=== PATIENT | female | born 1950 | race Caucasian/White ===

== ENCOUNTER → 2017-09-21 08:51 | Outpatient (CLI) | payer MEDICARE, OTHER, SELFPAY ==
[2017-09-21 13:36] LABS: Alanine Aminotransferase 15 U/L (12-78); Albumin Level 3.5 gm/dL (3.4-5.0); Albumin/Globulin Ratio 1.3 (1.1-1.8); Alkaline Phosphatase 111 U/L (46-116); Anion Gap 12.2 mEq/L (5-15); Aspartate Amino Transferase 14 U/L (15-37); Bilirubin,Total 0.5 mg/dL (0.2-1.0); Blood Urea Nitrogen 18 mg/dL (7-18); Carbon Dioxide 27 mmol/L (21.0-32.0); Chloride 107 mmol/L (98-107); Chol/HDL Ratio 2.6 (1-3.5); Cholesterol 143 mg/dL (140-200); Creatinine,Serum 1.07 mg/dL (0.55-1.02); Estimated Glomerular Filt Rate 51 ml/min (>60); Free T4 (Free Thyroxine) 0.89 ng/dl (0.76-1.46); GFR (African American) 62 ML/MIN (>60); Globulin 2.8 gm/dl (1.3-3.2); Glucose 101 mg/dL (74-106); HDL Cholesterol 56 mg/dL (29-89); LDL Cholesterol 63 mg/dL (0-130); Potassium 4.2 mmoL/L (3.5-5.1); Sodium 142 mmol/L (136-145); Thyroid Stimulating Hormone 1.89 uIU/ml (0.358-3.740); Total Protein,Serum 6.3 gm/dL (6.4-8.2); Triglycerides 119 mg/dL (30-200); VLDL Cholesterol 24 mg/dL (0-40)
[2017-09-21 13:48] LABS: Basophils % 0.5 % (0.1-2.0); Eosinophils # 0.4 K/mm3 (0.0-0.4); Eosinophils % 6.2 % (0.1-12.0); Hematocrit 45.8 % (37.0-47.0); Hemoglobin 14.3 g/dL (12.2-16.2); Lymphocytes # 1.9 K/mm3 (0.7-4.5); Lymphocytes % 30.6 K/mm3 (10-50); Mean Corpuscular HGB Conc 31.1 g/dL (31.8-35.4); Mean Corpuscular Hemoglobin 27.1 pg (27.0-31.2); Mean Corpuscular Volume 87.1 fl (81-99); Mean Platelet Volume 9.5 fl (7.4-10.4); Monocytes # 0.3 K/mm3 (0.1-1.0); Monocytes % 4.3 % (1.7-9.3); Neutrophils # 3.6 K/mm3 (1.8-7.8); Neutrophils % 58.4 % (37.0-80.0); Platelet Count 201 K/mm3 (142-424); Red Blood Count 5.26 M/mm3 (4.20-5.40); Red Cell Distribution Width 14.7 % (11.5-17.5); White Blood Count 6.2 K/mm3 (4.8-10.8)
[2017-09-22 19:24] LABS: Vitamin B12 1815 pg/mL (232-1245); Vitamin D 25 Hydroxy 89.2 ng/mL (30.0-100.0)
== END ==
PROVIDERS: PCP Nurse Practitioner Family; Visit Provider Nurse Practitioner Family
DX: I48.91 Unspecified atrial fibrillation (principal); I10 Essential (primary) hypertension; E78.5 Hyperlipidemia, unspecified; E55.9 Vitamin D deficiency, unspecified; E53.8 Deficiency of other specified B group vitamins
CPT/HCPCS: 36415; 80053; 80061; 82607; 82652; 84439; 84443; 85025

== ENCOUNTER → 2017-09-25 13:27 | Outpatient (CLI) | payer MEDICARE, OTHER, SELFPAY | PROVIDERS: Family Provider Nurse Practitioner Family; PCP Nurse Practitioner Family; Visit Provider Nurse Practitioner Family | DX: I48.0 Paroxysmal atrial fibrillation (principal) | CPT/HCPCS: 93306 ==

== ENCOUNTER → 2017-10-17 07:05 | Outpatient (CLI) | payer MEDICARE, OTHER, SELFPAY ==
--- NOTE | 2017-10-17 08:16 | NM_ITS ---
History and Indications: Chest, family history, chest pain, shortness of breath, palpitations and fatigue Procedure: Patient received a 0.4 mg of Lexiscan, resting heart rate was 47 beats per resting blood pressure 163/79, with Lexiscan maximum heart rate achieved was 65 bpm, which is less than 85% of the maximum predicted heart rate and a blood pressure was 150/67. With Lexiscan patient complained of shortness of breath. Electrocardiogram: Resting echocardiogram showed sinus rhythm, with Lexiscan less than 1.[address] segment depression noted from the baseline EKG. The EKG portion of the Lexiscan Myoview is nondiagnostic. Cardiac stress and resting SPECT images: Cardiac stress and rest SPECT images were obtained using Tc 99 Myoview 32.2 mCi at stress and then 10.5 mCi at rest. Gated SPECT further analysis of segmental wall motion and calculation of the ejection fraction also done. Cardiac stress and rest SPECT images show decreased tracer activity in the lateral wall which improves on the resting images suggestive of reversible ischemia, however this study is technically limited due to patient's body habitus, possibility of soft tissue attenuation cannot be excluded. Computer derived ejection fraction is 55% with no obvious regional wall motion abnormality, right ventricle is normal size and contractility. Conclusion: 1. The EKG portion of the Lexiscan Myoview is nondiagnostic. 2. Scintigraphic evidence of mild reversible ischemia involving the lateral wall, however this study is technically limited due to patient's body habitus, possibility of soft tissue attenuation cannot be excluded. Computer derived ejection fraction is 55% with no obvious regional wall motion abnormality, right ventricle is normal size and contractility. 3. Likely normal Lexiscan Myoview study.
--- NOTE | 2017-10-17 08:16 | CT_ITS ---
CT heart w calcium score INDICATION: Chest pain ITS.REASON: cp ORDERING PHYSICIAN: Marvel Coyne MD PATIENT AGE: 67 years COMPARISON: None TECHNIQUE: Axial images are obtained without contrast. Sagittal and coronal reformatted images are reviewed as well. All CT scans at the facility use one or more dose reduction, viz: automated exposure control; ma/kV adjustment per patient size (including targeted exams where dose is matched to indication; i.e. head); or iterative reconstruction technique. FINDINGS: The coronary artery calcium score is 0 indicating no identifiable atherosclerotic plaque with very low cardiovascular disease risk IMPRESSION: Coronary artery calcium score 0
--- NOTE | 2017-10-17 08:18 | HMH.ITSHM ---
CALCIUM B12 CRESTOR LISINOPRIL XARELTO PAROXETINE ASA METOPROLOL ZOLPIDEM AMIDODARONE
== END ==
PROVIDERS: Family Provider Nurse Practitioner Family; PCP Internal Medicine Adolescent Medicine; Visit Provider Internal Medicine Cardiovascular Disease
DX: R07.89 Other chest pain (principal); I48.91 Unspecified atrial fibrillation; I10 Essential (primary) hypertension; E78.5 Hyperlipidemia, unspecified
CPT/HCPCS: 75571; 78452; 93017; A9502; J2785

== ENCOUNTER → 2018-01-26 10:49 | Outpatient (CLI) | payer MEDICARE, OTHER, SELFPAY ==
--- NOTE | 2018-01-26 11:02 | XR_ITS ---
XR chest 2V HISTORY: ITS.REASON: on amiodarone therapy ORDERING PHYSICIAN: Marvel Coyne MD PATIENT AGE: 67 years COMPARISON: None FINDINGS: The cardiomediastinal silhouette and pulmonary vascularity are within normal limits. The lungs are clear without infiltrates, suspicious nodules, or pleural effusions. There is increased density overlying the anterior aspect of the heart on the lateral view probably related to pericardial fat pad as seen on a coronary artery CT of 10/17/2017. This may be confirmed with follow-up No acute bony abnormalities. There are degenerative changes in the lower thoracic spine. IMPRESSION: No acute finding. See above for detail No evidence of amiodarone lung toxicity
[2018-01-26 13:03] LABS: Alanine Aminotransferase 16 U/L (12-78); Albumin Level 3.4 gm/dL (3.4-5.0); Alkaline Phosphatase 113 U/L (46-116); Aspartate Amino Transferase 9 U/L (15-37); Bilirubin,Direct 0.1 mg/dL (0.0-0.2); Bilirubin,Indirect 0.3 mg/dL (0.0-0.9); Bilirubin,Total 0.4 mg/dL (0.2-1.0); Free Thyroxine Index 2.9 ug/dL (5.93-13.13); T4 (Thyroxine) 8.4 ug/dl (4.7-13.3); Thyroid Stimulating Hormone 2.44 uIU/ml (0.358-3.740); Total Protein,Serum 6.5 gm/dL (6.4-8.2); Triiodothryronine (T3) Uptake 35 % (31-39)
== END ==
PROVIDERS: PCP Internal Medicine Adolescent Medicine; Visit Provider Internal Medicine Cardiovascular Disease
DX: E78.5 Hyperlipidemia, unspecified (principal); I10 Essential (primary) hypertension; I48.91 Unspecified atrial fibrillation; R00.1 Bradycardia, unspecified; R06.09 Other forms of dyspnea; Z79.899 Other long term (current) drug therapy
CPT/HCPCS: 36415; 71046; 80076; 84436; 84443; 84479

== ENCOUNTER → 2018-02-16 09:18 | Outpatient (CLI) | payer MEDICARE, OTHER, SELFPAY ==
[2018-02-16 13:57] LABS: Anion Gap 11.4 mEq/L (5-15); Blood Urea Nitrogen 18 mg/dL (7-18); Calcium 8.8 mg/dL (8.5-10.1); Carbon Dioxide 30 mmol/L (21.0-32.0); Chloride 103 mmol/L (98-107); Creatinine,Serum 1.15 mg/dL (0.55-1.02); Estimated Glomerular Filt Rate 47 ml/min (>60); GFR (African American) 57 ML/MIN (>60); Glucose 135 mg/dL (74-106); Potassium 3.4 mmoL/L (3.5-5.1); Sodium 141 mmol/L (136-145)
== END ==
PROVIDERS: PCP Internal Medicine Adolescent Medicine; Visit Provider Internal Medicine Cardiovascular Disease
DX: E78.49 Other hyperlipidemia (principal); I48.0 Paroxysmal atrial fibrillation; R00.1 Bradycardia, unspecified; R06.09 Other forms of dyspnea; R94.30 Abnormal result of cardiovascular function study, unspecified
CPT/HCPCS: 36415; 80048; 83880

== ENCOUNTER → 2018-02-19 14:56 | Outpatient (CLI) | payer MEDICARE, OTHER, SELFPAY ==
--- NOTE | 2018-02-19 15:00 | XR_ITS ---
DEXA SCAN.-BONE DENSITY STUDY HIPS AND LUMBAR SPINE HISTORY: Postmenopausal female 67-year-old female. Height loss. Takes calcium and vitamin D. 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 TECHNIQUE: DEXA scan hip and lumbar spine The most complete data summary and color graphic presentation of the today's ( and any prior ) DEXA findings are available in PACS. Definition and treatment guidelines included. COMPARISON: January 16, 2017 LUMBAR SPINE: Normal bone density overall as well as at all individual vertebral levels L1 vertebral body demonstrates the lowest T score -0.3 with BMD1.088 g/cm sq Overall mean lumbar L1-L4 T score 1.0 with BMD1.296 g/cm sq . 2017 prior DEXA the mean T score = 1.3 with BMD was1.339g/cm sq Thus when comparing today's study to the prior exam there's been a 3.2% decrease mean bone density at the lumbar spine in the interval which is slightly more than would be predicted length of time .. HIPS: Femoral neck density is best predictor of hip fracture risk . Left` femoral neck demonstrates the lowest T score -1.0 with BMD0.898 g/cm sq . Reflects early osteopenia at left femoral neck Right femoral neck T score -0.6 with BMD 0.98 Averaging all regions yields today's today's Hip Mean T score 0.3 with BMD1.048 g/cm sq . 2017Prior DEXA hip overall mean T score 0.4 with mean BMD1.055 g/cm sq Thus this reflects a 0.7in decreased overall mean bone density at the hips in the interval. This is typical, anticipated for a just over one year time. IMPRESSION 1. LUMBAR SPINE: Normal bone density throughout . Overall normal bone density with Normal bone density at all vertebral levels 2. HIPS: Normal overall bone density hips bilaterally. Overall it T score = 0.3 . Early osteopenia at left femoral neck T score -1.0 WHO criteria for post-menopausal, Women: Normal: T-score at or above -1 SD Osteopenia: T-score between -1 and -2.5 SD Osteoporosis: T-score at or below -2.5 SD
--- NOTE | 2018-02-19 15:00 | MM_ITS ---
MM Dig screening mamm BI w/CAD ORDERING PHYSICIAN : Bandar Zamora MD PATIENT AGE: 67 years GENDER: Female COMPARISON: December 2016 INDICATION: ITS.REASON: SCREENING routine screening mammogram with no new complaints. No hormones. Noncontributory family history TECHNIQUE: Standard CC and MLO images were obtained. R2 CAD reviewed. FINDINGS: Large volume Low-density fatty breast with generalized fatty replacement. No significant new findings. No areas of concern No suspicious nor dominant mass nor suspicious calcification. . IMPRESSION: Stable mammogram. No areas of concern. Low-density fatty breast bilaterally. BI-RADS Category: 1 Negative RECOMMENDED FOLLOW-UP: 1YR 1 YEAR FOLLOW-UP (A letter has been sent to the patient regarding results of the study.)
== END ==
PROVIDERS: PCP Internal Medicine Adolescent Medicine; Visit Provider Internal Medicine Adolescent Medicine
DX: Z12.31 Encounter for screening mammogram for malignant neoplasm of breast (principal); Z13.820 Encounter for screening for osteoporosis; Z78.0 Asymptomatic menopausal state
CPT/HCPCS: 77067; 77080

== ENCOUNTER → 2018-02-23 10:03 | Outpatient (CLI) | payer MEDICARE, OTHER, SELFPAY ==
[2018-02-23 14:33] LABS: Anion Gap 11.8 mEq/L (5-15); Blood Urea Nitrogen 12 mg/dL (7-18); Calcium 8.8 mg/dL (8.5-10.1); Carbon Dioxide 31 mmol/L (21.0-32.0); Chloride 103 mmol/L (98-107); Creatinine,Serum 1.16 mg/dL (0.55-1.02); Estimated Glomerular Filt Rate 47 ml/min (>60); GFR (African American) 56 ML/MIN (>60); Glucose 98 mg/dL (74-106); Potassium 3.8 mmoL/L (3.5-5.1); Sodium 142 mmol/L (136-145)
== END ==
PROVIDERS: PCP Internal Medicine Adolescent Medicine; Visit Provider Urology
DX: E78.5 Hyperlipidemia, unspecified (principal); I10 Essential (primary) hypertension; I48.91 Unspecified atrial fibrillation; R00.1 Bradycardia, unspecified; R06.09 Other forms of dyspnea; Z79.899 Other long term (current) drug therapy
CPT/HCPCS: 36415; 80048

== ENCOUNTER → 2018-03-09 08:58 | Outpatient (CLI) | payer MEDICARE, OTHER, SELFPAY ==
[2018-03-09 14:56] LABS: Anion Gap 14.7 mEq/L (5-15); Blood Urea Nitrogen 27 mg/dL (7-18); Calcium 8.7 mg/dL (8.5-10.1); Carbon Dioxide 29 mmol/L (21.0-32.0); Chloride 100 mmol/L (98-107); Creatinine,Serum 1.27 mg/dL (0.55-1.02); Estimated Glomerular Filt Rate 42 ml/min (>60); GFR (African American) 51 ML/MIN (>60); Glucose 103 mg/dL (74-106); Potassium 3.7 mmoL/L (3.5-5.1); Sodium 140 mmol/L (136-145)
== END ==
PROVIDERS: PCP Internal Medicine Adolescent Medicine; Visit Provider Internal Medicine Cardiovascular Disease
DX: E78.5 Hyperlipidemia, unspecified (principal); I10 Essential (primary) hypertension; I48.91 Unspecified atrial fibrillation; R00.1 Bradycardia, unspecified; R06.09 Other forms of dyspnea; Z79.899 Other long term (current) drug therapy
CPT/HCPCS: 36415; 80048

== ENCOUNTER → 2018-11-01 10:04 | Outpatient (CLI) | payer MEDICARE, OTHER, SELFPAY ==
--- NOTE | 2018-11-01 10:14 | XR_ITS ---
XR chest 2V HISTORY: Cardiac dysrhythmia, follow-up amiodarone therapy ITS.REASON: on amio therapy ORDERING PHYSICIAN: Marvel Coyne MD PATIENT AGE: 68 years COMPARISON: 01/26/2018 FINDINGS: The cardiomediastinal silhouette and pulmonary vascularity are within normal limits. Previously noted opacity overlying nature aspect of the heart is unchanged. The lungs are clear without infiltrates, suspicious nodules, or pleural effusions. No acute bony abnormalities. IMPRESSION: No change with no acute finding. No convincing evidence of amiodarone lung toxicity
== END ==
PROVIDERS: PCP Internal Medicine Adolescent Medicine; Visit Provider Internal Medicine Cardiovascular Disease
DX: E78.49 Other hyperlipidemia (principal); I10 Essential (primary) hypertension; I48.0 Paroxysmal atrial fibrillation; R00.1 Bradycardia, unspecified; R06.09 Other forms of dyspnea; Z79.899 Other long term (current) drug therapy
CPT/HCPCS: 71046; 93270

== ENCOUNTER → 2018-11-06 14:00 | Outpatient (CLI) | payer MEDICARE, OTHER, SELFPAY ==
--- NOTE | 2018-11-06 14:01 | CA_ITS ---
PROCEDURE: 2-D M-mode and color Doppler study INDICATIONS FOR THE TEST: Chest pain COPD Heart Murmur Tobacco Smoking Palpitations Fatigue Syncope Edema Hypertension Diabetes Mellitus Rheumatic Fever SOB+EGAN+Obesity+Hyperlipidemia Family History HD Additional History reduced EF on echo 09/2017 35-45% PATIENT INFORMATION HEIGHT: 67 WEIGHT: 257 GENDER: Female B/P: 158/81 2-D/M-MODE INTERPRETATION: 2-D MEASUREMENTS OBSERVED VALUES IN CMS Right Ventricular Dimension (RVDd) 2.6 Interventricular Septum (Thickness)(IVsd) 1.0 Left Ventricular Internal Dimensions(LVIDd) 5.0 Left Ventricular Posterior Wall (Thickness)(LVPWd) 1.0 Aortic Root 2.6 Aortic Cusp Separation 2.1 Left Atrial Dimensions (LAD) 3.7 2D 1. Technically difficult study because of the patient's factor and poor acoustic windows 2. Left atrium is mildly enlarged, left ventricle is normal size, there is mild concentric left ventricular hypertrophy, visually estimated ejection fraction 50% with no regional wall motion abnormality. 3. The right atrium and right ventricle are mildly enlarged with normal contractility. 4. The mitral and tricuspid valvular grossly normal. 5. The aortic valve is minimally thickened and fibrosed. 6. No significant pericardial effusion noted. DOPPLER INTERROGATION: Doppler interrogation of the aortic, mitral and tricuspid valvular presence of mild mitral and tricuspid regurgitation, tricuspid regurgitation jet velocity is inadequate for calculation of the right ventricular systolic pressure, grade 1 diastolic dysfunction seen with tissue Doppler evidence of raised left atrial pressure. CONCLUSION: 1. Technically difficult study because of the patient's factor and poor acoustic windows. 2. Left atrium is mildly enlarged, left ventricle is normal size, mild concentric left ventricular hypertrophy, visually estimated ejection fraction 50% with no regional wall motion abnormality, grade 1 diastolic dysfunction seen with tissue Doppler evidence of raised left atrial pressure. 3. Mildly enlarged right ventricle with normal contractility. 3. Mild mitral and tricuspid regurgitation 4. No significant pericardial effusion noted.
== END ==
PROVIDERS: PCP Internal Medicine Adolescent Medicine; Visit Provider Internal Medicine Cardiovascular Disease
DX: I48.0 Paroxysmal atrial fibrillation (principal)
CPT/HCPCS: 93306

== ENCOUNTER → 2019-02-27 12:32 | Outpatient (CLI) | payer MEDICARE, OTHER, SELFPAY ==
--- NOTE | 2019-02-27 12:35 | MM_ITS ---
PROCEDURE: MM DIG SCREENING MAMM BI W/CAD CLINICAL INDICATION: SCREENING There is no personal or family history of breast cancer. COMPARISON: [facility] DIG MAMM-SCREEN COMFORT W/CAD from 01/16/2017 [facility] MM Dig screening mamm BI w/CAD from 02/19/2018 TECHNIQUE: Standard CC and MLO images were obtained. R2 CAD reviewed. FINDINGS: The breasts are composed primarily of fat with very minimal residual fibroglandular elements in each breast. There are few benign-appearing microcalcifications in each breast. IMPRESSION: Fatty type breast parenchyma with no suspicious lesions seen BI-RAD Category: FOLLOW-UP: 1YR 1 Year Follow-up (A letter has been sent to the patient regarding results of the study.) Dictated by: Dr. Tuan Joshua MD 02/28/2019 11:[address] Tuan Joshua MD in [place] 02/28/2019 11:24
== END ==
PROVIDERS: PCP Internal Medicine Adolescent Medicine; Visit Provider Internal Medicine Adolescent Medicine
DX: Z12.31 Encounter for screening mammogram for malignant neoplasm of breast (principal)
CPT/HCPCS: 77067

== ENCOUNTER 2019-04-25 13:00 | Outpatient (RCR) | payer MEDICARE, OTHER, SELFPAY ==
--- NOTE | 2019-04-09 11:28 | HMH.PTOPEV ---
PT Outpatient Evaluation Rehab PT Outpatient Evaluation Start: 04/09/19 10:45 Freq: Status: Active Protocol: Document 04/09/19 10:45 ANGELINE (Rec: 04/09/19 11:26 [email or web address] [id number]) Electronically Signed By Braulio Maier, PT 04/09/19 10:45 Outpatient Therapy Subjective History Subjective History Pt. is a 68 year old female who presents to outpatient PT with complaints of subacute and constant LB/ RLE(lateral calf/thigh) P! of insidious onset for several weeks. Pt. describes her P! as a sharp ache that shoots up my leg. Pt. reports symptoms worsen with running the sweeper, but also wakes her up at night. Pt. reports symptoms sometimes shoot into my toes, but denies symptoms into her LLE. Pt. denies having diagnostic imaging w/ current pathology, and no symptom relief post injection. Current medications include Calcium, Zolpidem, Amiodarone, Xarelto, Metoprolol, Aspirin, Rosuvastatin, Paroxitine, Buspirone, Losartan, Omeprazole, and Tylenol. PMH includes Afib, Depression, HTN , Hysterectomy, and a Cholecystectomy. Chief Complaint Pain,Weakness Symptom Type Ache,Sharp,Shooting Symptoms Relieved By Rest/Positioning,Heat Symptoms Aggravated By Sitting,Bending/Stooping, Physical Activity,Walking Prior Functional Limitations None Current Functional Limitations Housework,Driving,Sleeping, Standing,Sitting,Squatting, Recreation Activity,Walking, Stairs,Bending/Stooping Symptom Description Constant and Continuous Level of pain today (0-10) 5 Pain scale - at its best (0-10) 2 Pain scale - at its worst (0-10) 10 Lumbopelvic Eval Posture Thoracic Spine Posture Standing Position Neutral Lumbar Spine Posture Standing Position Neutral Assistive device Assistive Devices None / NA Gait Observation General Gait Pattern Observation No Deviations/Normal Palapation tenderness right thoracic spinal tenderness No lumbar spinal tenderness
== END 2019-05-15 12:00 | disposition home or self-care (01) ==
LOC: PT.CARL 13:00
PROVIDERS: PCP Internal Medicine Adolescent Medicine; Visit Provider Nurse Practitioner Family
DX: M54.16 Radiculopathy, lumbar region (principal)
CPT/HCPCS: 97012; 97014; 97110; 97140; 97163; G0283

== ENCOUNTER → 2019-05-14 12:49 | Outpatient (CLI) | payer MEDICARE, OTHER, SELFPAY ==
--- NOTE | 2019-05-14 12:53 | MR_ITS ---
PROCEDURE: MR LUMBAR SPINE WO CON CLINICAL INDICATION: LUMBAR BACK PAIN W/RADICULOPATHY AFFECTING RIGHT LOWER EXTRE COMPARISON: No exams were available for comparison TECHNIQUE: Standard multiplanar multiecho sequences are performed without contrast. 3-D MIP and myelographic images are also rendered and reviewed FINDINGS: There is a approximately 4 millimeters anterior subluxation of L5 on S1. Vacuum phenomenon is present at L5-S1. There is relative normal hydration of the L3-4 intervertebral disc with desiccation of all other discs. The lumbar vertebrae are of normal height. No malignant bone marrow signal is apparent. At T11-12 there is broad-based disc bulge with mild extradural mass effect on the thecal sac. At L2-3 there is mild disc bulge greatest in the foraminal regions with mild bilateral foraminal encroachments but no high-grade stenosis. At L3-4 there is disc bulge with bilateral ligamentum flavum and facet hypertrophy with mild old mass effect on the thecal sac without central canal stenosis. Bilateral mild foraminal encroachment is noted. At L4-5 there is broad-based disc bulge with bilateral ligamentum flavum and facet hypertrophy. Fluid is seen within the facet joints. There is central spinal canal stenosis and bilateral foraminal stenosis right greater than left. Clinical correlation for possible impingement of right L4 nerve root sleeve is recommended. At L5-S1 there is broad-based disc bulge and hypertrophic facet disease with no significant mass effect upon the thecal sac. There is bilateral foraminal stenosis left greater than right. There is no disc herniation. IMPRESSION: Multilevel degenerative disc and facet disease as described with greatest neural impingement central canal stenosis and bilateral foraminal stenosis right greater than left L4-5. Dictated by: Jaswant De La Torre 05/14/2019 14:58 Electronically signed by Jaswant De La Torre in [place] 05/14/2019 14:58
== END ==
PROVIDERS: PCP Internal Medicine Adolescent Medicine; Visit Provider Nurse Practitioner Family
DX: M54.16 Radiculopathy, lumbar region (principal)
CPT/HCPCS: 72148; 76376

== ENCOUNTER → 2019-05-23 10:45 | Outpatient (POV) | payer MEDICARE, OTHER, SELFPAY ==
[2019-05-23 11:14] VITALS: BP 152/82; PULSE 59; RESP 18; O2SAT 99; BMI 36.9
--- NOTE | 2019-05-23 12:18 | HMH.PMCON ---
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 Current visit: Yes Status: Chronic Qualifiers: Spinal osteoarthritis complication: with radiculopathy Qualified Code(s): M47.26 - Other spondylosis with radiculopathy, lumbar region Category: Medical Code(s): M47.816 - Spondylosis without myelopathy or radiculopathy, lumbar region (2) Lumbar radiculopathy Current visit: Yes Status: Acute Category: Medical Code(s): M54.16 - Radiculopathy, lumbar region (3) Facet arthropathy Current visit: Yes Status: Acute Category: Medical Code(s): M47.819 - Spondylosis without myelopathy or radiculopathy, site unspecified (4) Spinal stenosis Current visit: Yes Status: Chronic Category: Medical Code(s): M48.00 - Spinal stenosis, site unspecified (5) Neurogenic claudication Current visit: Yes Status: Chronic Category: Medical Code(s): M48.062 - Spinal stenosis, lumbar region with neurogenic claudication - Assessment and plan all Dx Assessment and Plan for all problems:: Given the patient's symptoms, I think she would benefit from a lumbar epidural steroid injection at L4-L5. The patient is on Xarelto that is prescribed by Dr. Coyne. We will seek approval for the patient to hold her Xarelto for the injection. The patient will continue with anti-inflammatories and a home stretching program. She has been instructed to contact the clinic if she has any concerns before her next appointment. The patient does understand that she will need to hold her anticoagulation prior to the injection. Patient has been instructed to contact clinic if she has any concerns before her next appointment. Dr. Berry has reviewed this note and agrees with this plan of care. This note was dictated using voice recognition software and make contain errors or omissions. HPI - Data of Consult Consult date: 05/23/19 Requesting Physician: Kaylie Orozco APRN Primary Care Provider: Bandar Zamora MD - Consult Narrative Reason for consult: Back pain History of present illness: Ms. Castro is a 68 year old female who presents today for consultation for low back pain with radiation into her right leg. Patient says that she has had shooting pain from her low back into her right leg for more than a few months. She says she is feeling some heaviness and her leg giving out for more than 2 to 3 months. She says that she is started to have frequent falls for no reason. She says she has had chronic low back pain however the right leg pain is acute for her. She says the pain is worse with walking and standing and doing any type of activity in her home. She says she is to the point that she is unable to perform any housework such as laundry or washing dishes. Patient says when she is shopping she has to lean forward on the cart to get relief. She says that she has been taking Aleve and Tylenol [id number], however, she is getting little to no relief. She is also tried a home stretching program as well with little relief. Patient says that her pain is a 7 out of 10 today. She does continue with anti-inflammatories. She has not tried any type of injective therapies. She is not interested in oral opiates. CC: Kaylie Orozco APRN [facility] History I have reviewed the patient's past medical history: Yes Medical History: Reports:: Atrial Fibrillation, Heart Murmur, Hyperlipidemia, Hypertension Denies:: Cancer, Diabetes Mellitus Type 1, Diabetes Mellitus Type 2, Internal Pacemaker, MRSA, Seizures *Have you ever received a pneumonia vaccine?: Yes *Have you received a flu vaccine this season?: Yes Other Medical History: Reports: Other Other Surgeries: Yes: No Previous Surgery, Cardiac Catheterization, Dilation and Curettage, Hysterectomy-Total. No: Pacemaker Amputation: No Fractures: No - *Social History Smoking Status: Never smoker Alcohol Intake: never Substance Use Type: denies use *Occupationa
--- NOTE | 2019-05-23 13:31 | PC.NURSE ---
PT INFORMED THAT APPROVAL WAS OBTAINED FROM DR ALVARADO TO HOLD XARELTO 4 DAYS PRIOR TO EPIDURAL. PT V/U
== END ==
PROVIDERS: PCP Internal Medicine Adolescent Medicine; Visit Provider Clinical Nurse Specialist Family Health
DX: M47.26 Other spondylosis with radiculopathy, lumbar region (principal); M54.06 Panniculitis affecting regions of neck and back, lumbar region; M48.062 Spinal stenosis, lumbar region with neurogenic claudication; Z79.01 Long term (current) use of anticoagulants; Z79.82 Long term (current) use of aspirin; Z79.899 Other long term (current) drug therapy
CPT/HCPCS: 99202

== ENCOUNTER → 2019-06-13 06:51 | Outpatient (CLI) | payer MEDICARE, OTHER, SELFPAY ==
--- NOTE | 2019-06-13 07:14 | XR_ITS ---
PROCEDURE: XR CHEST 2V CLINICAL HISTORY: on amiodarone COMPARISON: CXR2V XR chest 2V from 01/26/2018 FINDINGS: There is cardiomegaly without CHF. The lungs are clear without infiltrates, suspicious nodules, or pleural effusions. No acute bony abnormalities. Multilevel degenerative disc disease is seen in the spine. IMPRESSION: No acute findings. Dictated by: Jaswant De La Torre 06/13/2019 09:28 Electronically signed by Jaswant De La Torre in [place] 06/13/2019 09:28
[2019-06-13 07:36] LABS: Alanine Aminotransferase 13 U/L (12-78); Alkaline Phosphatase 99 U/L (38-126); Aspartate Amino Transferase 24 U/L (14-36); Bilirubin,Indirect 0.4 mg/dL (0.0-0.9); Bilirubin,Total 0.4 mg/dl (0.2-1.3); Bilirubin,Unconjugated 0.5 mg/dL (0.0-1.1); Chol/HDL Ratio 2.3 (1-3.5); Cholesterol 147 mg/dl (140-200); HDL Cholesterol 63 mg/dl (40-60); Total Protein,Serum 6.8 g/dl (6.3-8.2); Triglycerides 93 mg/dl (30-150); VLDL Cholesterol 19 mg/dL (0-40)
[2019-06-13 07:47] LABS: Direct LDL Cholesterol 61.91 mg/dL (100-129)
[2019-06-13 07:54] LABS: Free T4 (Free Thyroxine) 1.35 ng/dl (0.78-2.19)
[2019-06-13 08:07] LABS: Thyroid Stimulating Hormone 4.13 uIU/mL (0.465-4.68)
== END ==
PROVIDERS: PCP Internal Medicine Adolescent Medicine; Visit Provider Internal Medicine Cardiovascular Disease
DX: E78.5 Hyperlipidemia, unspecified (principal); I10 Essential (primary) hypertension; I48.91 Unspecified atrial fibrillation; R00.1 Bradycardia, unspecified; R06.09 Other forms of dyspnea; R61 Generalized hyperhidrosis; Z79.899 Other long term (current) drug therapy
CPT/HCPCS: 36415; 71046; 80061; 80076; 84439; 84443

== ENCOUNTER → 2019-11-14 11:31 | Outpatient (CLI) | payer MEDICARE, OTHER, SELFPAY | PROVIDERS: PCP Internal Medicine Adolescent Medicine; Visit Provider Physician Assistant | DX: I10 Essential (primary) hypertension (principal) ==

== ENCOUNTER → 2019-11-14 11:56 | Outpatient (CLI) | payer MEDICARE, OTHER, SELFPAY ==
[2019-11-14 12:25] LABS: Basophils # 0.1 K/mm3 (0-0.2); Basophils % 0.6 % (0.1-2.0); Eosinophils # 0.3 K/mm3 (0.0-0.4); Eosinophils % 3.3 % (0.1-12.0); Lymphocytes # 1.6 K/mm3 (0.7-4.5); Mean Corpuscular HGB Conc 32.6 g/dL (31.8-35.4); Mean Corpuscular Hemoglobin 27.3 pg (27.0-31.2); Mean Corpuscular Volume 83.6 fl (81-99); Mean Platelet Volume 8.7 fl (7.4-10.4); Monocytes # 0.4 K/mm3 (0.1-1.0); Monocytes % 4.8 % (1.7-9.3); Neutrophils # 5.1 K/mm3 (1.8-7.8); Neutrophils % 69.2 % (37.0-80.0); Platelet Count 251 K/mm3 (142-424); Red Blood Count 4.78 M/mm3 (4.20-5.40); Red Cell Distribution Width 14.8 % (11.5-17.5); White Blood Count 7.4 K/mm3 (4.8-10.8)
[2019-11-14 13:23] LABS: Alanine Aminotransferase 10 U/L (12-78); Alkaline Phosphatase 147 U/L (38-126); Anion Gap 11.5 mEq/L (5-15); Aspartate Amino Transferase 21 U/L (14-36); Bilirubin,Direct 0.1 mg/dl (0.0-0.4); Bilirubin,Indirect 0.4 mg/dL (0.0-0.9); Bilirubin,Total 0.5 mg/dl (0.2-1.3); Bilirubin,Unconjugated 0.4 mg/dL (0.0-1.1); Blood Urea Nitrogen 13 mg/dl (7-17); Calcium 9.3 mg/dl (8.4-10.2); Carbon Dioxide 32 mmol/L (22.0-30.0); Chloride 98 mmol/L (98-107); Chol/HDL Ratio 2.3 (1-3.5); Cholesterol 164 mg/dl (140-200); Estimated Glomerular Filt Rate 45 ml/min (>60); GFR (African American) 54 ML/MIN (>60); Glucose 95 mg/dl (74-100); HDL Cholesterol 72 mg/dl (40-60); Potassium 3.5 mmoL/L (3.5-5.1); Sodium 138 mmol/L (136-145); Total Protein,Serum 6.8 g/dl (6.3-8.2); Triglycerides 145 mg/dl (30-150); VLDL Cholesterol 29 mg/dL (0-40)
[2019-11-14 13:34] LABS: Direct LDL Cholesterol 73.23 mg/dL (100-129)
[2019-11-14 13:42] LABS: Free Thyroxine Index 2.6 ug/dL (5.93-13.13); T4 (Thyroxine) 8.2 ug/dl (5.53-11.0); Triiodothryronine (T3) Uptake 32 % (23.5-40.5)
== END ==
PROVIDERS: Physician Assistant; Visit Provider Internal Medicine Cardiovascular Disease
DX: Z79.899 Other long term (current) drug therapy (principal); R53.83 Other fatigue; R55 Syncope and collapse; E78.5 Hyperlipidemia, unspecified; M47.816 Spondylosis without myelopathy or radiculopathy, lumbar region
CPT/HCPCS: 36415; 80048; 80061; 80076; 84436; 84443; 84479; 85025; 93225

== ENCOUNTER → 2020-04-01 14:55 | Outpatient (CLI) | payer MEDICARE, OTHER, SELFPAY ==
--- NOTE | 2020-04-01 14:57 | MM_ITS ---
PROCEDURE: MM DIG SCREENING MAMM BI W/CAD Referring Doctor: Bandar Zamora Patient Age:69Y CLINICAL INDICATION: SCREENING . No hormones, no new complaints, noncontributory family history COMPARISON: MG [facility] DIG MAMM-SCREEN COMFORT W/CAD from 01/16/2017 [facility] MM Dig screening mamm BI w/CAD from 02/19/2018 [facility] echo doppler complete from 11/06/2018 MG MM DIG SCREENING MAMM BI W/CAD from 02/27/2019 TECHNIQUE: Standard CC and MLO images were obtained. R2 CAD reviewed. Bilateral digital breast tomosynthesis included.. Additional nipple profile MLO view right breast,. FINDINGS: Low-density breast with generalized fatty replacement.. No dominant nor suspicious mass, no suspicious calcifications. No significant change since prior studies. CAD highlights no new areas of significant concern. IMPRESSION: Stable bilateral mammogram with no new areas of concern. Low-density breast with generalized fatty replacement. Bilateral follow-up 1 year recommended. BI-RAD Category: 1 Negative FOLLOW-UP: 1YR 1 Year Follow-up (A letter has been sent to the patient regarding results of the study.) Dictated by: Daryl Tena MD 04/04/2020 19:40 Daryl Tena MD in [place] 04/04/2020 19:40
--- NOTE | 2020-04-01 14:58 | XR_ITS ---
PROCEDURE: XR DEXA AXIAL SKELETON CLINICAL HISTORY: BREAST CA COMPARISON: CR DEXAAX XR DEXA axial skeleton from 02/19/2018 FINDINGS: The left hip BMD is 0.760 with a T-score of -0.8. The right hip BMD is 0.801 with a T-score of 0.4. The lumbar spine BMD is 1.033 with a T-score of -0.1. IMPRESSION: This patient is considered normal according to the World Health Organization criteria. Fracture risk is low. Based on these results a follow-up exam is recommended in 1 year. Dictated by: Jeet Whiting MD 04/01/2020 19:19 Jeet Whiting MD in [place] 04/01/2020 19:19
== END ==
PROVIDERS: PCP Internal Medicine Adolescent Medicine; Visit Provider Internal Medicine Adolescent Medicine
DX: Z12.31 Encounter for screening mammogram for malignant neoplasm of breast (principal); Z13.820 Encounter for screening for osteoporosis; Z78.0 Asymptomatic menopausal state
CPT/HCPCS: 77063; 77067; 77080

== ENCOUNTER → 2020-08-26 15:33 | Outpatient (CLI) | payer MEDICARE, OTHER, SELFPAY ==
[2020-08-26 15:57] LABS: Basophils % 0.4 % (0.1-2.0); Eosinophils # 0.3 K/mm3 (0.0-0.4); Eosinophils % 3.6 % (0.1-12.0); Hematocrit 37.7 % (37.0-47.0); Hemoglobin 12.1 g/dL (12.2-16.2); Lymphocytes # 1.4 K/mm3 (0.7-4.5); Lymphocytes % 20.9 % (10-50); Mean Corpuscular HGB Conc 32.1 g/dL (31.8-35.4); Mean Corpuscular Hemoglobin 27.7 pg (27.0-31.2); Mean Corpuscular Volume 86.1 fl (81-99); Mean Platelet Volume 9.1 fl (7.4-10.4); Monocytes # 0.3 K/mm3 (0.1-1.0); Monocytes % 3.7 % (1.7-9.3); Neutrophils # 4.9 K/mm3 (1.8-7.8); Neutrophils % 71.4 % (37.0-80.0); Platelet Count 241 K/mm3 (142-424); Red Blood Count 4.38 M/mm3 (4.20-5.40); Red Cell Distribution Width 14.6 % (11.5-17.5); White Blood Count 6.9 K/mm3 (4.8-10.8)
[2020-08-26 16:11] LABS: Alanine Aminotransferase 10 U/L (12-78); Albumin Level 3.9 g/dl (3.5-5.0); Albumin/Globulin Ratio 1.6 (1.1-1.8); Alkaline Phosphatase 102 U/L (38-126); Anion Gap 8.4 mEq/L (5-15); Aspartate Amino Transferase 26 U/L (14-36); Bilirubin,Total 0.4 mg/dl (0.2-1.3); Blood Urea Nitrogen 17 mg/dl (7-17); Calcium 9.1 mg/dl (8.4-10.2); Carbon Dioxide 30 mmol/L (22.0-30.0); Chloride 102 mmol/L (98-107); Chol/HDL Ratio 2.8 (1-3.5); Cholesterol 145 mg/dl (140-200); Estimated Glomerular Filt Rate 40 ml/min (>60); GFR (African American) 49 ML/MIN (>60); Globulin 2.4 g/dL (1.3-3.2); Glucose 85 mg/dl (74-100); HDL Cholesterol 52 mg/dl (40-60); Potassium 4.4 mmoL/L (3.5-5.1); Sodium 136 mmol/L (136-145); Total Protein,Serum 6.3 g/dl (6.3-8.2); Triglycerides 171 mg/dl (30-150); VLDL Cholesterol 34 mg/dL (0-40)
[2020-08-26 16:22] LABS: Direct LDL Cholesterol 59.59 mg/dL (100-129)
[2020-08-26 16:40] LABS: Thyroid Stimulating Hormone 3.32 uIU/mL (0.465-4.68)
[2020-08-26 17:05] LABS: Hemoglobin A1C 5.3 % (4.0-6.0)
[2020-08-27 12:09] LABS: 25-OH Vitamin D, Total 26.4 ng/mL (30-100)
== END ==
PROVIDERS: Visit Provider Nurse Practitioner Family
DX: I48.0 Paroxysmal atrial fibrillation (principal); I10 Essential (primary) hypertension; R73.9 Hyperglycemia, unspecified; E53.8 Deficiency of other specified B group vitamins; E55.9 Vitamin D deficiency, unspecified
CPT/HCPCS: 80053; 80061; 82306; 82652; 83036; 84443; 85025

== ENCOUNTER → 2020-10-12 09:31 | Outpatient (POV) | payer MEDICARE, OTHER, SELFPAY ==
[2020-10-12 09:45] VITALS: BP 127/80; PULSE 65; RESP 20; O2SAT 96; BMI 38.5
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
== END ==
PROVIDERS: PCP Internal Medicine Adolescent Medicine; Visit Provider Clinical Nurse Specialist Family Health
DX: M46.1 Sacroiliitis, not elsewhere classified (principal)
CPT/HCPCS: 99212; G0463

== ENCOUNTER → 2020-11-16 10:14 | Outpatient (POV) | payer MEDICARE, OTHER, SELFPAY ==
[2020-11-16 10:29] VITALS: BP 145/55; PULSE 54; RESP 18; O2SAT 96; BMI 36.9
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
== END ==
PROVIDERS: Visit Provider Clinical Nurse Specialist Family Health
DX: M51.16 Intervertebral disc disorders with radiculopathy, lumbar region (principal)
CPT/HCPCS: 99212; G0463

== ENCOUNTER → 2020-11-19 14:10 | Outpatient (CLI) | payer MEDICARE, OTHER, SELFPAY ==
--- NOTE | 2020-11-19 14:14 | MR_ITS ---
PROCEDURE: MR LUMBAR SPINE WO CON CLINICAL INDICATION: BACK PAIN Low back pain. Bilateral leg pain. No injury. COMPARISON: MR MR LUMBAR SPINE WO CON from 05/14/2019 MR MR CERVICAL SPINE WO CON from 11/19/2020 TECHNIQUE: Standard multiplanar multiecho sequences are performed without contrast. 3-D MIP and myelographic images are also rendered and reviewed FINDINGS: There is normal alignment. The spinal cord ends at the L1-L2 level. T12-L1: Minimal endplate irregularity L1-L2: Minimal disc desiccation with small anterior osteophytes. L2-L3: Mild degenerative disc disease. Small anterior osteophytes. Minimal bulging disc. Mild facet and ligamentum hypertrophic change. Mild bilateral foraminal narrowing unchanged. L3-L4: Mild concentric bulging disc with facet and ligamentum hypertrophic change with mild bilateral lateral recess and foraminal narrowing left greater than right slightly increased compared to the previous exam. Sclerotic focus involves the L3 vertebral body anteriorly not significantly changed at approximately 1.3 cm. L4-5: Degenerative disc disease with bulging disc with severe facet and ligamentum hypertrophic change with severe canal stenosis with canal measuring approximately 6 mm. There is severe bilateral lateral recess and foraminal narrowing. These findings have progressed compared to the previous exam. The canal stenosis is more severe. The canal measures approximately 5-6 mm previously measuring 7-8 mm. Type 1 endplate changes are present anteriorly and have developed since the previous study. L5-S1: 5 mm anterolisthesis of L5 with bulging disc at this region along with severe facet and ligamentum hypertrophic change. There is canal stenosis of 9 mm in there is severe bilateral foraminal narrowing. These findings are not significantly changed from the previous exam. IMPRESSION: 1. L2-L3: Mild degenerative disc disease. Small anterior osteophytes. Minimal bulging disc. Mild facet and ligamentum hypertrophic change. Mild bilateral foraminal narrowing unchanged. 2. L3-L4: Mild concentric bulging disc with facet and ligamentum hypertrophic change with mild bilateral lateral recess and foraminal narrowing left greater than right slightly increased compared to the previous exam. Sclerotic focus involves the L3 vertebral body anteriorly not significantly changed at approximately 1.3 cm. 3. L4-5: Degenerative disc disease with bulging disc with severe facet and ligamentum hypertrophic change with severe canal stenosis with canal measuring approximately 6 mm. There is severe bilateral lateral recess and foraminal narrowing. These findings have progressed compared to the previous exam. The canal stenosis is more severe. The canal measures approximately 5-6 mm previously measuring 7-8 mm. Type 1 endplate changes are present anteriorly and have developed since the previous study. 4. L5-S1: 5 mm anterolisthesis of L5 with bulging disc at this region along with severe facet and ligamentum hypertrophic change. There is canal stenosis of 9 mm in there is severe bilateral foraminal narrowing. These findings are not significantly changed from the previous exam. 5. No extruded herniated disc apparent. Dictated by: Jeet Whiting MD 11/20/2020 08:19 Jeet Whiting MD in [place] 11/20/2020 08:19
--- NOTE | 2020-11-19 14:14 | MR_ITS ---
PROCEDURE: MR CERVICAL SPINE WO CON CLINICAL INDICATION: NECK PAIN Neck pain goes down back and into legs. Symptoms x2-3 months. No injury. COMPARISON: No exams were available for comparison TECHNIQUE: Standard multiplanar multiecho sequences are performed without contrast. 3-D MIP and myelographic images are also rendered and reviewed FINDINGS: There is slight reversal cervical lordosis. Unremarkable craniocervical junction. C2-C3: There is mild prominence of the posterior longitudinal ligament with borderline canal stenosis without impingement. C3-C4: Minimal prominence of the posterior longitudinal ligament with borderline canal stenosis without impingement C4-C5: Degenerative disc disease with bulging disc and endplate hypertrophy with uncovertebral hypertrophy/small disc osteophyte complexes at the uncovertebral region on both sides with resultant canal stenosis of 8 mm and moderate to severe bilateral lateral recess narrowing and severe bilateral foraminal narrowing with impingement upon the exiting C4 nerve roots on both sides.. There is minimal flattening of the cord anteriorly. C5-C6: Degenerative disc disease with bulging disc and endplate and uncovertebral hypertrophy with canal stenosis at 8 mm with mild flattening of the cord anteriorly and severe bilateral foraminal narrowing slightly greater on the left with bilateral neural impingement. The bulging disc is slightly eccentric toward the left. C6-C7: Minimal bulging disc. C7-T1, T1-T2, and T2-T3 are unremarkable. There is degenerative disc disease at T3-T4 with bulging disc and small small central disc protrusion with impingement upon the cord anteriorly. There is some mild flattening of the cord IMPRESSION: Abnormal MRI of the cervical spine with multilevel cervical spondylosis with degenerative disc disease and endplate and uncovertebral hypertrophy with canal stenosis and bilateral lateral recess and foraminal narrowing with neural impingement at C4-C5 and C5-C6. Please see above for detailed description at each level. Degenerative disc disease with bulging disc at T3-T4 and some possible small central disc protrusion or herniation with mild impingement upon the cord anteriorly Dictated by: Jeet Whiting MD 11/20/2020 08:35 Jeet Whiting MD in [place] 11/20/2020 08:35
== END ==
PROVIDERS: Visit Provider Clinical Nurse Specialist Family Health
DX: M54.2 Cervicalgia (principal); M54.5 Low back pain
CPT/HCPCS: 72141; 72148; 76376

== ENCOUNTER → 2020-11-30 09:49 | Outpatient (POV) | payer MEDICARE, OTHER, SELFPAY ==
[2020-11-30 10:03] VITALS: BP 110/52; PULSE 58; RESP 18; O2SAT 96; BMI 36.9
--- NOTE | 2020-11-30 10:41 | HMH.PAINSOAP ---
[facility] Pain Management SOAP Note Subjective:: Patient is a 70-year-old white female who presents today for follow-up. She recently underwent MRI of her cervical and lumbar spine. The patient is having pain in her low back with radiation into bilateral lower extremities and neck. She says the pain varies from neck to low back area. She has intermittent numbness and tingling as well as pain into her bilateral upper and lower extremities. She says her pain is worse in her low back today. Other days, her pain is worse in her neck. Today, she reports she is unable to stand or shower due to pain. 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 She rates her pain a 7 out of 10. She is on Xarelto therapy that is prescribed by Dr. Krishna. She has tried and failed conservative therapies of physical therapy for greater than 6 weeks as well as home stretching. She is unable to take anti-inflammatories. Patient says that she can sit and do lawnmowing with no pain. She says, however, any type of standing or walking worsens her pain. She denies saddle anesthesia or changes in bowel or bladder habit. Leaning forward does give her some relief. She says she does use a cart while shopping for relief. Patient would like to proceed with injective therapy to her cervical and lumbar spine. She would like to begin with her lumbar spine initially. Review of Systems General: No recent weight changes, no fever, no sleep disturbances Respiratory: No cough, no shortness of air, no recurring pulmonary infections Cardiovascular/peripheral vascular: No chest pain, no palpitations, no edema, no shortness of breath Gastrointestinal: No new onset incontinence, normal bowel movements reported Genitourinary: No new onset incontinence Musculoskeletal: Neck pain with radiation intermittently to bilateral upper extremities, low back pain with radiation into lower extremities with numbness and tingling Psychiatric: [Normal mood/affect] Neurological: Weakness in lower extremities Objective:: Physical exam General: Alert and oriented x3, no acute distress, pleasant and cooperative, [on room air] Lungs: Respirations even and unlabored, symmetrical chest expansion Eyes: PERRL Musculoskeletal: Flexion and extension of [] cervical and lumbar [spine] somewhat guarded secondary to pain, strength in upper and lower extremities [5/5], [antalgic gait noted] Neurological: 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 Her pain is worse in her low back at this time. She does have pain in her bilateral lower extremities with numbness and tingling as well as neck pain with intermittent radiation into her upper extremities. Pain does vary. She says it is worse with any type of movement. Her pain subsided in her low back when she is sitting. She is on Xarelto. She is prescribed Xarelto by Dr. Krishna. We will seek approval to hold her Xarelto before the injection. She will continue with home stretching. She is unable to take inflammatories. Risks and benefits of the procedure have been explained to the patient. Patient would like to proceed with the procedure. Possible side effects of corticosteroids have been discussed with the patient. Patient has been instructed to contact the clinic with any concerns before the next appointment. Dr. Berry has reviewed this note and agrees with this plan of care. This note was dictated using voice recognition software and make contain errors or omissions. [facility] History I have reviewed the patient's past medical history: Yes Medical History: Reports:: Atrial Fibrillation, Heart Murmur, Hyperlipidemia, Hypertension Denies:: Cancer, Diabetes Mellitu
== END ==
PROVIDERS: Visit Provider Clinical Nurse Specialist Family Health
DX: M50.10 Cervical disc disorder with radiculopathy, unspecified cervical region (principal); M51.16 Intervertebral disc disorders with radiculopathy, lumbar region
CPT/HCPCS: 99212; G0463

== ENCOUNTER → 2020-12-18 08:10 | Outpatient (CLI) | payer MEDICARE, OTHER, SELFPAY ==
[2020-12-18 09:24] LABS: Anion Gap 13.7 mEq/L (5-15); Blood Urea Nitrogen 17 mg/dl (7-17); Calcium 9.2 mg/dl (8.4-10.2); Carbon Dioxide 31 mmol/L (22.0-30.0); Chloride 100 mmol/L (98-107); Estimated Glomerular Filt Rate 40 ml/min (>60); GFR (African American) 49 ML/MIN (>60); Glucose 96 mg/dl (74-100); Potassium 4.7 mmoL/L (3.5-5.1); Sodium 140 mmol/L (136-145)
[2020-12-18 09:34] LABS: NT Pro Brain Natriuretic Pep. 136 pg/mL (0-125)
--- NOTE | 2020-12-18 10:39 | XR_ITS ---
PROCEDURE: XR CHEST 2V CLINICAL HISTORY: amiodarone Atrial fibrillation COMPARISON: DX CXR2V XR chest 2V from 01/26/2018 CR XR CHEST 2V from 06/13/2019 FINDINGS: The cardiomediastinal silhouette and pulmonary vascularity are within normal limits. The lungs are clear without infiltrates, suspicious nodules, or pleural effusions. Chronic changes in the left lung base which may be due to some minimal scarring. IMPRESSION: No change with no acute finding. No convincing evidence of amiodarone lung toxicity. Dictated by: Jeet Whiting MD 12/18/2020 11:25 Jeet Whiting MD in [place] 12/18/2020 11:25
== END ==
PROVIDERS: PCP Internal Medicine Adolescent Medicine; Visit Provider Internal Medicine Cardiovascular Disease
DX: Z79.899 Other long term (current) drug therapy (principal); R06.09 Other forms of dyspnea; E78.2 Mixed hyperlipidemia; I10 Essential (primary) hypertension; I48.0 Paroxysmal atrial fibrillation; R07.89 Other chest pain
CPT/HCPCS: 36415; 71046; 80048; 83880

== ENCOUNTER → 2021-01-22 08:07 | Outpatient (CLI) | payer MEDICARE, OTHER, SELFPAY ==
[2021-01-22 09:53] LABS: Bilirubin,Unconjugated 0.3 mg/dL (0.0-1.1)
[2021-01-22 09:54] LABS: Alanine Aminotransferase 10 U/L (12-78); Alkaline Phosphatase 103 U/L (38-126); Aspartate Amino Transferase 22 U/L (14-36); Bilirubin,Indirect 0.2 mg/dL (0.0-0.9); Bilirubin,Total 0.2 mg/dl (0.2-1.3); Total Protein,Serum 6.5 g/dl (6.3-8.2)
[2021-01-22 10:25] LABS: Thyroid Stimulating Hormone 3.94 uIU/mL (0.465-4.68)
[2021-01-22 15:54] LABS: Free T4 (Free Thyroxine) 0.99 ng/dl (0.78-2.19)
== END ==
PROVIDERS: Visit Provider Internal Medicine Cardiovascular Disease
DX: E78.2 Mixed hyperlipidemia (principal); I10 Essential (primary) hypertension; I48.0 Paroxysmal atrial fibrillation; R00.1 Bradycardia, unspecified; R06.00 Dyspnea, unspecified; R61 Generalized hyperhidrosis; Z79.899 Other long term (current) drug therapy
CPT/HCPCS: 36415; 80076; 84439; 84443

== ENCOUNTER 2021-02-05 10:22 | Day surgery (SDC) | payer MEDICARE, OTHER, SELFPAY ==
[2021-02-05 10:38] VITALS: BP 124/57; PULSE 52; RESP 18; TEMP 36.5; O2SAT 97; BMI 35.4
[2021-02-05 10:51] VITALS: BP 142/57; PULSE 58; RESP 18; O2SAT 95
[2021-02-05 11:02] VITALS: BP 142/57; PULSE 57; RESP 18; O2SAT 97
[2021-02-05 11:22] VITALS: BP 156/67; PULSE 59; RESP 20; O2SAT 93
--- NOTE | 2021-02-05 12:03 | HMH.PMPROC ---
- Procedure Date: 02/05/21 Time: 12:03 Anesthesiologist:: Benigno Berry MD Complications:: None Pre-procedure Diagnosis:: Degenerative disc disease of lumbar spine with lumbar radiculopathy symptoms Post-procedure Diagnosis:: Same Indications for Procedure:: This patient is a pleasant 70-year-old white female who we are treating for low back pain with lumbar radiculopathy symptoms. She has increasing pain in her back pain radiating down both legs. Will do lumbar epidural steroid injection today to see if this helps with her pain symptoms. Procedure Details:: Informed consent was obtained and the risk and benefits of the procedure was explained to the patient. The patient was taken to the procedure room. The patient was placed prone on the procedure table. The patient was prepped and draped in sterile fashion. C-arm fluoroscopy was used to view the lumbar spine. Skin and subcutaneous tissues were anesthetized using lidocaine. I placed an 18-gauge epidural needle and advanced into the L4-L5 interspace using fluoroscopic guidance and [id number] to air. After confirmation of needle placement in the epidural space with dye I injected 2 mL of lidocaine 1.5% with Depo-Medrol 80 mg. Patient tolerated the procedure well with no complications. Plan and Disposition:: We will follow-up with her in 2 weeks. Will reevaluate symptoms at that time.
== END 2021-02-05 11:23 | disposition home or self-care (01) ==
LOC: SC.PAINP 10:24
PROVIDERS: PCP Internal Medicine Adolescent Medicine; Visit Provider Anesthesiology
DX: M51.16 Intervertebral disc disorders with radiculopathy, lumbar region (principal); E78.5 Hyperlipidemia, unspecified; I48.91 Unspecified atrial fibrillation; I10 Essential (primary) hypertension
CPT/HCPCS: 62323; J1040; Q9966

== ENCOUNTER → 2021-03-17 20:26 | Outpatient (CLI) | payer MEDICARE, OTHER, SELFPAY ==
[2021-03-17 20:36] LABS: Basophils % 0.6 % (0.1-2.0); Eosinophils # 0.2 K/mm3 (0.0-0.4); Eosinophils % 3.7 % (0.1-12.0); Hematocrit 40.7 % (37.0-47.0); Hemoglobin 12.9 g/dL (12.2-16.2); Lymphocytes # 1.9 K/mm3 (0.7-4.5); Lymphocytes % 30.5 % (10-50); Mean Corpuscular HGB Conc 31.8 g/dL (31.8-35.4); Mean Corpuscular Hemoglobin 28.6 pg (27.0-31.2); Mean Corpuscular Volume 89.9 fl (81-99); Mean Platelet Volume 9.7 fl (7.4-10.4); Monocytes # 0.3 K/mm3 (0.1-1.0); Monocytes % 4.7 % (1.7-9.3); Neutrophils # 3.7 K/mm3 (1.8-7.8); Neutrophils % 60.6 % (37.0-80.0); Platelet Count 223 K/mm3 (142-424); Red Blood Count 4.53 M/mm3 (4.20-5.40); Red Cell Distribution Width 14.7 % (11.5-17.5); White Blood Count 6.1 K/mm3 (4.8-10.8)
[2021-03-17 20:55] LABS: Alanine Aminotransferase 4 U/L (12-78); Albumin Level 3.6 g/dl (3.5-5.0); Albumin/Globulin Ratio 1.4 (1.1-1.8); Alkaline Phosphatase 111 U/L (38-126); Anion Gap 10.3 mEq/L (5-15); Aspartate Amino Transferase 43 U/L (14-36); Bilirubin,Total 0.3 mg/dl (0.2-1.3); Blood Urea Nitrogen 17 mg/dl (7-17); Calcium 8.9 mg/dl (8.4-10.2); Carbon Dioxide 32 mmol/L (22.0-30.0); Chloride 102 mmol/L (98-107); Estimated Glomerular Filt Rate 44 ml/min (>60); GFR (African American) 54 ML/MIN (>60); Globulin 2.6 g/dL (1.3-3.2); Glucose 86 mg/dl (74-100); Potassium 4.3 mmoL/L (3.5-5.1); Sodium 140 mmol/L (136-145); Total Protein,Serum 6.2 g/dl (6.3-8.2)
[2021-03-17 22:24] LABS: Thyroid Stimulating Hormone 1.68 uIU/mL (0.465-4.68)
[2021-03-17 23:16] LABS: 25-OH Vitamin D, Total 35.9 ng/mL (30-100)
[2021-03-17 23:49] LABS: Vitamin B12 740 pg/mL (239-931)
== END ==
PROVIDERS: Visit Provider Nurse Practitioner Family
DX: I48.0 Paroxysmal atrial fibrillation (principal); I10 Essential (primary) hypertension; R73.9 Hyperglycemia, unspecified; E53.8 Deficiency of other specified B group vitamins; E55.9 Vitamin D deficiency, unspecified
CPT/HCPCS: 80053; 82306; 82607; 84443; 85025

== ENCOUNTER → 2021-03-30 11:23 | Outpatient (POV) | payer MEDICARE, OTHER, SELFPAY ==
[2021-03-30 11:38] VITALS: BP 121/65; PULSE 56; RESP 18; O2SAT 97; BMI 35.4
--- NOTE | 2021-04-01 08:05 | HMH.PAINSOAP ---
[facility] Pain Management SOAP Note Subjective:: Patient is a very pleasant 70-year-old white female who presents today for follow-up. She did undergo a lumbar epidural steroid injection on 02/05/2021. Patient reports that her pain is a 4 out of 10 today. She says that the injection did relieve her pain for up to 2 weeks. Unfortunately, the patient's pain weekly returns. She does have pain in her low back and bilateral lower extremities. She says that when she is having difficulty with standing, walking, and prolonged sitting. The pain is in the buttock and right leg as well. She does say that walking up stairs makes the pain worse as well. She is having sensation of legs giving out. She does have an MRI from 11/19/2020. The patient has deferred on any type of implant or neurosurgical evaluation. The patient is on anticoagulation therapy. She is unable to take anti-inflammatories. She does take large doses of Tylenol for relief. She says that it does relieve her pain somewhat. Unfortunately, Tylenol does not help with her leg symptoms, however. She has tried physical therapy for 6 weeks in the past along with continued home stretching. Review of Systems General: No recent weight changes, no fever, no sleep disturbances Respiratory: No cough, no shortness of air, no recurring pulmonary infections Cardiovascular/peripheral vascular: No chest pain, no palpitations, no edema, no shortness of breath Gastrointestinal: No new onset incontinence, normal bowel movements reported Genitourinary: No new onset incontinence Musculoskeletal: Low back pain with radiation into bilateral lower extremities and buttock, weakness lower extremities Psychiatric: [Normal mood/affect] Neurological: Weakness lower extremities with worry of falling Objective:: Physical exam General: Alert and oriented x3, no acute distress, pleasant and cooperative Lungs: Respirations even and unlabored, symmetrical chest expansion Eyes: PERRL Musculoskeletal: Flexion and extension of lumbar [spine] somewhat guarded secondary to pain, [antalgic gait noted] Neurological: Speech clear, no gross sensory deficit Assessment:: Degenerative disc disease lumbar spine with lumbar radiculopathy symptoms, spinal stenosis with neurogenic claudication symptoms Plan:: Patient I did discuss her MRI. Per her report she does have sclerotic L3 vertebral body with severe spinal stenosis measuring at approximately 6 mm. Per the report she also has severe bilateral lateral recess and foraminal narrowing. Patient's MRI does note her stenosis to have worsened since her previous imaging. We did discuss her options in the clinic. At this time patient may benefit from a mild procedure but she is not interested. She is also not interested in neurosurgical evaluation or in implanted devices. She would like to postpone any further injective therapy at this time. She says the pain is bearable at this time. We did discuss starting tramadol at a low dose 50 mg 1 tablet p.o. twice daily to see if this does relieve some of her pain and enables her to lessen her dosing of Tylenol. She is in agreement. We will see the patient back in the clinic in 1 month to see if the medication has helped with pain. If symptoms do worsen, she has been advised neurosurgery is likely her best option. She was given educational information regarding spinal cord stimulation today as well. We will see the patient back in the clinic in a month. Risks and benefits of the medication have been explained in detail to the patient. If side effects do present with the medication, patient has been advised to stop the medication immediately and call the clinic. The patient has been advised to consult with his/her primary care provider and pharmacist regarding drug-drug interaction of medications currently prescribed. Patient has been instructed to contact the clinic with any concerns before the next appointment.
== END ==
PROVIDERS: Visit Provider Clinical Nurse Specialist Family Health
DX: M51.16 Intervertebral disc disorders with radiculopathy, lumbar region (principal); M48.062 Spinal stenosis, lumbar region with neurogenic claudication
CPT/HCPCS: 99212; G0463

== ENCOUNTER → 2021-04-02 13:08 | Outpatient (CLI) | payer MEDICARE, OTHER, SELFPAY ==
--- NOTE | 2021-04-02 13:11 | MM_ITS ---
PROCEDURE INFORMATION: Exam: MG Bilateral Screening 3D Mammography Exam date and time: 04/02/2021 1:11 PM Age: 70 years old Clinical indication: Encounter for screening mammogram for malignant neoplasm of breast TECHNIQUE: Imaging protocol: Bilateral screening tomosynthesis and 2D mammography including computer-aided detection (CAD) when performed. COMPARISON: 1. MG MM DIG SCREENING MAMM BI W/CAD 04/01/2020 3:19 PM 2. MG MM DIG SCREENING MAMM BI W/CAD 02/27/2019 1:39 PM FINDINGS: MAMMOGRAPHY: Breast composition: The breast tissue is composed of scattered areas of fibroglandular density. Mass: None. Architectural distortion: None. Calcifications: No suspicious calcifications. Asymmetric density: None. Skin thickening: None. Axillary adenopathy: None. IMPRESSION: No mammographic evidence of malignancy. Annual screening is recommended unless otherwise clinically indicated. ASSESSMENT: BI-RADS Category 1: Negative
== END ==
PROVIDERS: PCP Internal Medicine Adolescent Medicine; Visit Provider Internal Medicine Adolescent Medicine
DX: Z12.31 Encounter for screening mammogram for malignant neoplasm of breast (principal)
CPT/HCPCS: 77063; 77067

== ENCOUNTER → 2021-05-03 15:33 | Outpatient (POV) | payer MEDICARE, OTHER, SELFPAY ==
[2021-05-03 15:46] VITALS: BP 143/65; PULSE 87; RESP 18; O2SAT 100; BMI 35.4
--- NOTE | 2021-05-03 15:54 | P.CONS_ITS ---
[facility] Pain Management SOAP Note Subjective:: Patient is a pleasant 70-year-old female who comes in here today for follow-up and medication refill. Patient is currently being treated for degenerative disc disease of the lumbar spine with lumbar radiculopathy symptoms, spinal stenosis with neurogenic claudication symptoms. Patient is currently being managed with tramadol 50 mg twice a day. Patient denies any side effects from this medications. Patient says that she is sparingly taking this medication in fear of getting addicted, so she takes tylenol at other times for pain. I discussed with the patient that addiction with tramadol is at a low risk with this medication. Patient denies any change to the location and type of pain. She rates her pain today as 4 out of 10. Her Roque number is [id number] with an active morphine equivalent of 0. Drug screens have been reviewed and appropriate. ORT score is low risk. Review of Systems General: No recent weight changes, no fever, no sleep disturbances Respiratory: No cough, no shortness of air, no recurring pulmonary infections Cardiovascular/peripheral vascular: No chest pain, no palpitations, no edema, no shortness of breath Gastrointestinal: No new onset incontinence, normal bowel movements reported Genitourinary: No new onset incontinence Musculoskeletal: Low back pain Psychiatric: [Normal mood/affect] Neurological: [Denies weakness in extremities], [denies balance issues] Objective:: Physical exam General: Alert and oriented x3, no acute distress, pleasant and cooperative Lungs: Respirations even and unlabored, symmetrical chest expansion Eyes: PERRL Musculoskeletal: Flexion and extension of lumbar [spine] somewhat guarded secondary to pain, [antalgic gait noted] Neurological: Speech clear, no gross sensory deficit Assessment:: Degenerative disc disease of the lumbar spine with lumbar radiculopathy symptoms, spinal stenosis with neurogenic claudication Plan:: The last time we saw this patient, we offered some injective therapy and spinal cord stimulation. At this time, patient is not interested in going with this plan. Patient says that she is getting enough relief with her oral medications. We will refill the patient's tramadol 50 mg twice a day. We will give the patient 3 months worth of refills. We will see this patient in 3 months for follow-up and reevaluation. Patient has been instructed to contact the clinic with any concerns before the next appointment. Dr. Berry has reviewed this note and agrees with this plan of care. This note was dictated using voice recognition software and make contain errors or omissions. [facility] History Medical History: Reports:: Atrial Fibrillation, Coronary Artery Disease, Heart Murmur, Hyperlipidemia, Hypertension Denies:: Cancer, Diabetes Mellitus Type 1, Diabetes Mellitus Type 2, Internal Pacemaker, MRSA, Seizures *Have you ever received a pneumonia vaccine?: Yes *Have you received a flu vaccine this season?: Yes Other Medical History: Reports: Other. Denies: Blood Transfusion Reaction Other Surgeries: Yes: No Previous Surgery, Cardiac Catheterization, Dilation and Curettage, Hysterectomy-Total. No: Pacemaker Amputation: No Fractures: No - *Social History Smoking Status: Never smoker Alcohol Intake: never Substance Use Type: denies use *Occupational Status:: unemployed Housing: house Household Members: spouse *Travel in the last 8 weeks: None Family Hx:: Heart Attack, Coronary Artery Disease, Stroke
== END ==
PROVIDERS: Visit Provider Clinical Nurse Specialist Family Health
DX: M51.16 Intervertebral disc disorders with radiculopathy, lumbar region (principal); M48.062 Spinal stenosis, lumbar region with neurogenic claudication
CPT/HCPCS: 99212; G0463

== ENCOUNTER → 2021-07-22 09:39 | Outpatient (CLI) | payer MEDICARE, OTHER, SELFPAY ==
[2021-07-22 14:37] LABS: Alanine Aminotransferase 11 U/L (12-78); Albumin Level 3.7 g/dl (3.5-5.0); Alkaline Phosphatase 109 U/L (38-126); Anion Gap 9.6 mEq/L (5-15); Aspartate Amino Transferase 21 U/L (14-36); Basophils % 0.7 % (0.1-2.0); Bilirubin,Direct 0.2 mg/dl (0.0-0.4); Bilirubin,Indirect 0.3 mg/dL (0.0-0.9); Bilirubin,Total 0.5 mg/dl (0.2-1.3); Bilirubin,Unconjugated 0.3 mg/dL (0.0-1.1); Blood Urea Nitrogen 18 mg/dl (7-17); Calcium 8.6 mg/dl (8.4-10.2); Carbon Dioxide 29 mmol/L (22.0-30.0); Chloride 103 mmol/L (98-107); Chol/HDL Ratio 2.4 (1-3.5); Cholesterol 122 mg/dl (140-200); Eosinophils # 0.2 K/mm3 (0.0-0.4); Estimated Glomerular Filt Rate 44 ml/min (>60); GFR (African American) 54 ML/MIN (>60); Glucose 99 mg/dl (74-100); HDL Cholesterol 50 mg/dl (40-60); Hematocrit 41.4 % (37.0-47.0); Hemoglobin 13.5 g/dL (12.2-16.2); Lymphocytes # 1.4 K/mm3 (0.7-4.5); Lymphocytes % 23.3 % (10-50); Mean Corpuscular HGB Conc 32.7 g/dL (31.8-35.4); Mean Corpuscular Hemoglobin 28.4 pg (27.0-31.2); Mean Corpuscular Volume 86.8 fl (81-99); Mean Platelet Volume 11.1 fl (7.4-10.4); Monocytes # 0.3 K/mm3 (0.1-1.0); Monocytes % 4.5 % (1.7-9.3); Neutrophils # 4.1 K/mm3 (1.8-7.8); Neutrophils % 67.5 % (37.0-80.0); Platelet Count 220 K/mm3 (142-424); Potassium 3.6 mmoL/L (3.5-5.1); Red Blood Count 4.77 M/mm3 (4.20-5.40); Red Cell Distribution Width 14.3 % (11.5-17.5); Sodium 138 mmol/L (136-145); Total Protein,Serum 5.9 g/dl (6.3-8.2); Triglycerides 127 mg/dl (30-150); VLDL Cholesterol 25 mg/dL (0-40)
[2021-07-22 14:49] LABS: Direct LDL Cholesterol 45.25 mg/dL (100-129)
[2021-07-22 14:59] LABS: Triiodothryronine (T3) Uptake 34 % (23.5-40.5)
[2021-07-22 15:00] LABS: Free Thyroxine Index 2.5 ug/dL (5.93-13.13); T4 (Thyroxine) 7.4 ug/dl (5.53-11.0)
[2021-07-22 15:15] LABS: Thyroid Stimulating Hormone 2.59 uIU/mL (0.465-4.68)
== END ==
PROVIDERS: Visit Provider Internal Medicine Cardiovascular Disease
DX: I10 Essential (primary) hypertension (principal)
CPT/HCPCS: 36415; 80048; 80061; 80076; 84436; 84443; 84479; 85025

== ENCOUNTER → 2021-08-02 11:39 | Outpatient (POV) | payer MEDICARE, OTHER, SELFPAY ==
[2021-08-02 11:53] VITALS: BP 130/86; PULSE 54; RESP 18; TEMP 36.8; O2SAT 99; BMI 35.4
--- NOTE | 2021-08-02 13:04 | HMH.PAINSOAP ---
[facility] Pain Management SOAP Note Subjective:: Patient is a pleasant 71-year-old female who is here for medication refill and follow-up. Patient is currently being treated for degenerative disc disease of lumbar spine with lumbar radiculopathy symptoms, spinal stenosis with neurogenic claudication, bilateral knee pain. Patient is being managed with tramadol 50 mg twice a day. Patient denies any side effects from the medications. Patient denies any changes to the location and type of pain. Patient states that this is adequately helping manage their pain. Rates pain as 7 out of 10. [facility] number [phone] with an active morphine equivalent 0. Drug screens have been reviewed and appropriate. Patient has been having worsening right knee pain that radiates to her ankle. She is unsure if this is related to her right knee or her low back. She has not had any intra-articular injections in her knee before. For pain, she also takes Tylenol as needed. She is on Xarelto and cannot take any anti-inflammatory medications. Review of Systems: General: No recent weight changes, no fever, no sleep disturbances Respiratory: No cough, no shortness of air, no recurring pulmonary infections Cardiovascular/peripheral vascular: No chest pain, no palpitations, no edema, no shortness of breath Gastrointestinal: No new onset incontinence, normal bowel movements reported Genitourinary: No new onset incontinence Musculoskeletal: Low back pain, right knee pain Psychiatric: [Normal mood/affect] Neurological: [Denies weakness in extremities], [denies balance issues] Objective:: Physical Exam: General: Alert and oriented x3, no acute distress, pleasant and cooperative, [on room air] Lungs: Respirations even and unlabored, symmetrical chest expansion Eyes: PERRL Musculoskeletal: Flexion and extension of lumbar [spine] somewhat guarded secondary to pain, [antalgic gait noted]; limited range of motion of the right knee secondary to pain. Patient has some tenderness around her right pes anserine bursa. Neurological: Speech clear, no gross sensory deficit Assessment:: Degenerative disc disease of lumbar spine with lumbar radiculopathy symptoms Spinal stenosis with neurogenic claudication Right knee pain Plan:: We will continue the patient's tramadol 50 mg twice a day. We will provide the patient with 3 months worth of refill. For her right knee pain, we will order a bilateral weighted knee x-ray. We will start her on a compounding cream to help with some of the knee pain. Based on her bilateral knee x-ray, patient has moderate to severe osteoarthritis on bilateral knees. We will schedule the patient for bilateral intra-articular knee injections. Risk and benefits have been discussed with the patient. Patient would like to proceed with this procedure. Patient has been instructed to contact the clinic with any concerns before the next appointment. Dr. Berry has reviewed this note and agrees with this plan of care. This note was dictated using voice recognition software and make contain errors or omissions. [facility] History Medical History: Reports:: Atrial Fibrillation, Coronary Artery Disease, Heart Murmur, Hyperlipidemia, Hypertension Denies:: Cancer, Diabetes Mellitus Type 1, Diabetes Mellitus Type 2, Internal Pacemaker, MRSA, Seizures *Have you ever received a pneumonia vaccine?: Yes *Have you received a flu vaccine this season?: Yes Other Medical History: Reports: Other. Denies: Blood Transfusion Reaction Other Surgeries: Yes: No Previous Surgery, Cardiac Catheterization, Dilation and Curettage, Hysterectomy-Total. No: Pacemaker Amputation: No Fractures: No - *Social History Smoking Status: Never smoker Alcohol Intake: never Substance Use Type: denies use *Occupational Status:: retired Housing: house Household Members: spouse *Travel in the last 8 weeks: None Family Hx:: Heart Attack, Coronary Artery Disease, Stroke
== END ==
PROVIDERS: Visit Provider Student in an Organized Health Care Education/Training Program
DX: M51.16 Intervertebral disc disorders with radiculopathy, lumbar region (principal); M48.00 Spinal stenosis, site unspecified; I73.9 Peripheral vascular disease, unspecified; M25.561 Pain in right knee
CPT/HCPCS: 73564; 99212; G0463

== ENCOUNTER → 2021-08-02 12:05 | Outpatient (CLI) | payer MEDICARE, OTHER, SELFPAY ==
--- NOTE | 2021-08-02 12:14 | XR_ITS ---
FINAL REPORT CLINICAL HISTORY: B. KNEE PAIN FINDINGS: LEFT KNEE: 4 views of the left knee obtained. There is no acute fracture or dislocation. There is prominent patellofemoral joint space narrowing with osteophytes seen at the undersurface of the patella. There is moderate medial compartment joint space narrowing and osteophytes at the medial joint margin. Soft tissues are without acute abnormality. IMPRESSION: Moderately advanced hypertrophic changes of osteoarthritis. Reviewed, Interpreted and Dictated by Nando Rider MD Transcribed by Melvina Poole Authenticated by Nando Rider MD on 08/02/2021 02:41:[address] [facility]
--- NOTE | 2021-08-02 12:15 | XR_ITS ---
FINAL REPORT CLINICAL HISTORY: B. KNEE PAIN FINDINGS: RIGHT KNEE: 4 views of the right knee obtained. There is no acute fracture or dislocation. Prominent osteophyte formation at the undersurface of the patella. Mild to moderate lateral joint space narrowing is seen with an osteochondral lesion at the articular surface of the lateral femoral condyle. A small joint effusion is seen. There is no soft tissue abnormality. IMPRESSION: Mild to moderate changes of osteoarthritis. Small joint effusion. Reviewed, Interpreted and Dictated by Nando Rider MD Transcribed by Melvina Poole Authenticated by Nando Rider MD on 08/02/2021 02:41:[address] [facility]
== END ==
PROVIDERS: PCP Internal Medicine Adolescent Medicine; Visit Provider Student in an Organized Health Care Education/Training Program
DX: M25.562 Pain in left knee (principal); M25.561 Pain in right knee
CPT/HCPCS: 73564

== ENCOUNTER 2021-08-06 09:36 | Day surgery (SDC) | payer MEDICARE, OTHER, SELFPAY ==
[2021-08-06 09:52] VITALS: BP 159/70; PULSE 56; RESP 20; TEMP 36.1; O2SAT 95; BMI 34.7
[2021-08-06 10:01] VITALS: BP 109/63; PULSE 58; RESP 20; O2SAT 96
[2021-08-06 10:03] VITALS: BP 109/63; PULSE 56; RESP 20; O2SAT 95
[2021-08-06 10:18] VITALS: BP 134/78; PULSE 54; RESP 20; O2SAT 96
--- NOTE | 2021-08-06 10:31 | HMH.PMPROC ---
- Procedure Date: 08/06/21 Time: 10:31 Anesthesiologist:: Braulio Sandy CRNA Complications:: None Pre-procedure Diagnosis:: Bilateral knee osteoarthritis Post-procedure Diagnosis:: Same Indications for Procedure:: Very pleasant 71-year-old white female who has had bilateral knee pain for quite some time. Patient has never had intra-articular cortisone injections. She rates the pain 10/10. We will inject both knees today. Procedure Details:: Details of the procedure were explained to the patient. The patient was placed in the sitting position. The area over the knee was cleansed using chlorhexidine as a cleansing solution. The left knee joint was accessed using a lateral approach with a 25-gauge needle without difficulty. 5 cc of injectate was injected smoothly without resistance. Okay the injection contained 3 cc of 0.25% Marcaine +2 cc of 1% lidocaine and 40 mg of Depo-Medrol. The same procedure was carried out in the right knee without incident. Patient tolerated the procedure without difficulties. There is no complications. Plan and Disposition:: Patient was evaluated 10 minutes post procedure. She reports significant provement terms of her knee pain when ambulating bilaterally.
== END 2021-08-06 10:19 | disposition home or self-care (01) ==
LOC: SC.PAINP 09:37
PROVIDERS: PCP Internal Medicine Adolescent Medicine; Visit Provider Nurse Anesthetist, Certified Registered
DX: M17.0 Bilateral primary osteoarthritis of knee (principal); I48.91 Unspecified atrial fibrillation; I25.10 Atherosclerotic heart disease of native coronary artery without angina pectoris; R01.1 Cardiac murmur, unspecified; E78.5 Hyperlipidemia, unspecified; I10 Essential (primary) hypertension
CPT/HCPCS: 20610; J1040

== ENCOUNTER → 2021-09-06 09:36 | Outpatient (CLI) | payer MEDICARE, OTHER, SELFPAY | PROVIDERS: PCP Internal Medicine Adolescent Medicine; Visit Provider Nurse Practitioner Family | DX: M25.561 Pain in right knee (principal); M25.361 Other instability, right knee ==

== ENCOUNTER → 2021-09-07 09:21 | Outpatient (CLI) | payer MEDICARE, OTHER, SELFPAY | PROVIDERS: PCP Internal Medicine Adolescent Medicine; Visit Provider Nurse Practitioner Family | DX: M25.561 Pain in right knee (principal) ==

== ENCOUNTER → 2022-04-27 16:00 | Outpatient (CLI) | payer MEDICARE, OTHER, SELFPAY ==
--- NOTE | 2022-04-27 16:05 | MM_ITS ---
PROCEDURE INFORMATION: Exam: MG Bilateral Screening 3D Mammography Exam date and time: 04/27/2022 3:56 PM Age: 71 years old Clinical indication: Screening examination TECHNIQUE: Imaging protocol: Bilateral Screening tomosynthesis and 2D mammography including computer-aided detection (CAD) when performed. COMPARISON: 1. MG MM DIG SCREENING MAMM BI W/CAD 04/02/2021 1:27 PM 2. MG MM DIG SCREENING MAMM BI W/CAD 04/01/2020 3:19 PM 3. MG MM DIG SCREENING MAMM BI W/CAD 02/27/2019 1:39 PM 4. MG SCBI MM Dig screening mamm BI w/CAD 02/19/2018 3:31 PM FINDINGS: MAMMOGRAPHY: Breast composition: There are scattered areas of fibroglandular density. Mass: None. Architectural distortion: No new or suspicious architectural distortion. Calcifications: No new or suspicious calcifications are present Asymmetric density: No new or suspicious asymmetric density is present Skin thickening: None. Axillary adenopathy: None. IMPRESSION: No mammographic evidence of malignancy. Recommend annual screening mammography unless otherwise clinically indicated. ASSESSMENT: BI-RADS category 1: Negative
== END ==
PROVIDERS: PCP Internal Medicine Adolescent Medicine; Visit Provider Internal Medicine Adolescent Medicine
DX: Z12.31 Encounter for screening mammogram for malignant neoplasm of breast (principal)
CPT/HCPCS: 77063; 77067

== ENCOUNTER → 2022-11-29 10:24 | Outpatient (CLI) | payer MEDICARE, OTHER, SELFPAY ==
[2022-11-29 11:14] LABS: Basophils % 0.6 % (0.1-2.0); Eosinophils # 0.3 K/mm3 (0.0-0.4); Eosinophils % 4.2 % (0.1-12.0); Hematocrit 42.6 % (37.0-47.0); Hemoglobin 13.9 g/dL (12.2-16.2); Lymphocytes # 1.4 K/mm3 (0.7-4.5); Lymphocytes % 22.6 % (10-50); Mean Corpuscular HGB Conc 32.6 g/dL (31.8-35.4); Mean Corpuscular Hemoglobin 28.8 pg (27.0-31.2); Mean Corpuscular Volume 88.5 fl (81-99); Mean Platelet Volume 9.1 fl (7.4-10.4); Monocytes # 0.2 K/mm3 (0.1-1.0); Monocytes % 3.5 % (1.7-9.3); Neutrophils # 4.1 K/mm3 (1.8-7.8); Neutrophils % 69.1 % (37.0-80.0); Platelet Count 205 K/mm3 (142-424); Red Blood Count 4.82 M/mm3 (4.20-5.40); Red Cell Distribution Width 13.9 % (11.5-17.5)
[2022-11-29 12:05] LABS: Alanine Aminotransferase 13 U/L (12-78); Albumin Level 3.9 g/dl (3.5-5.0); Albumin/Globulin Ratio 1.5 (1.1-1.8); Alkaline Phosphatase 102 U/L (38-126); Anion Gap 9.1 mEq/L (5-15); Aspartate Amino Transferase 24 U/L (14-36); Bilirubin,Total 0.4 mg/dl (0.2-1.3); Blood Urea Nitrogen 18 mg/dl (7-17); Calcium 9.1 mg/dl (8.4-10.2); Carbon Dioxide 33 mmol/L (22.0-30.0); Chloride 103 mmol/L (98-107); Estimated Glomerular Filt Rate 44 ml/min (>60); GFR (African American) 53 ML/MIN (>60); Globulin 2.6 g/dL (1.3-3.2); Glucose 90 mg/dl (74-100); Potassium 4.1 mmoL/L (3.5-5.1); Sodium 141 mmol/L (136-145); Total Protein,Serum 6.5 g/dl (6.3-8.2)
[2022-11-29 12:21] LABS: 25-OH Vitamin D, Total 42.5 ng/mL (30-100)
[2022-11-29 12:55] LABS: Vitamin B12 399 pg/mL (239-931)
[2022-11-29 15:36] LABS: T4 (Thyroxine) 6.9 ug/dl (5.53-11.0)
[2022-11-29 15:50] LABS: Thyroid Stimulating Hormone 2.97 uIU/mL (0.465-4.68)
[2022-11-30 16:08] LABS: Chol/HDL Ratio 3.1 (1-3.5); Cholesterol 162 mg/dl (140-200); HDL Cholesterol 53 mg/dl (40-60); Triglycerides 184 mg/dl (30-150); VLDL Cholesterol 37 mg/dL (0-40)
[2022-11-30 16:18] LABS: Direct LDL Cholesterol 69.21 mg/dL (100-129)
== END ==
PROVIDERS: PCP Nurse Practitioner Family; Visit Provider Nurse Practitioner Family
DX: E53.8 Deficiency of other specified B group vitamins (principal); I10 Essential (primary) hypertension; E55.9 Vitamin D deficiency, unspecified; I48.0 Paroxysmal atrial fibrillation
CPT/HCPCS: 36415; 80053; 80061; 82306; 82607; 84436; 84443; 85025

== ENCOUNTER 2023-01-22 13:50 | Emergency (ER) | payer MEDICARE, OTHER, SELFPAY ==
--- NOTE | 2023-01-22 13:48 | ECG_ITS ---
APPROVED REPORT Exam: Resting ECG HR:55 bpm ECG Measurements Heart Rate 55 AXES VT 199 P 82 QRSd 80 QRS 86 QT 444 T 82 QTc 434 Conclusion SINUS BRADYCARDIA LOW QRS VOLTAGE IN PRECORDIAL LEADS [QRS DEFLECTION < 1.0 mV IN CHEST LEADS] SEPTAL MYOCARDIAL INFARCTION , OF INDETERMINATE AGE [40+ ms Q WAVE IN V1/V2] ABNORMAL ECG UNCONFIRMED REPORT Electronically signed by : Bandar Zamora MD 01/23/2023 17:10:36
[2023-01-22 13:50] VITALS: BP 142/68; PULSE 56; RESP 18; TEMP 36.6; O2SAT 94; BMI 35.7
--- NOTE | 2023-01-22 14:23 | XR_ITS ---
PROCEDURE INFORMATION: Exam: XR Chest Exam date and time: 01/22/2023 2:46 PM Age: 72 years old Clinical indication: Pain; Left-sided; Additional info: Cp, L face and arm TECHNIQUE: Imaging protocol: Radiologic exam of the chest. Views: 1 view. COMPARISON: CR XR CHEST 2V 12/18/2020 10:48 AM FINDINGS: Lungs: Veiling ground-glass opacities suggestive of mild interstitial pulmonary edema. No evidence of acute airspace consolidation. Pleural spaces: No large pleural effusion. No pneumothorax. Heart/Mediastinum: Cardiac silhouette is upper limits of normal in size. No mediastinal widening. Bones/joints: No evidence of acute osseous abnormality. IMPRESSION: Veiling ground-glass opacities suggestive of mild interstitial pulmonary edema.
[2023-01-22 14:31] VITALS: BP 121/56; PULSE 50; RESP 12; O2SAT 98
[2023-01-22 14:43] LABS: Basophils # 0.1 K/mm3 (0-0.2); Basophils % 0.8 % (0.1-2.0); Eosinophils # 0.4 K/mm3 (0.0-0.4); Eosinophils % 6.1 % (0.1-12.0); Hematocrit 44.8 % (37.0-47.0); Hemoglobin 14.1 g/dL (12.2-16.2); Lymphocytes # 2.1 K/mm3 (0.7-4.5); Lymphocytes % 30.4 % (10-50); Mean Corpuscular HGB Conc 31.4 g/dL (31.8-35.4); Mean Corpuscular Hemoglobin 28.4 pg (27.0-31.2); Mean Corpuscular Volume 90.5 fl (81-99); Mean Platelet Volume 9.4 fl (7.4-10.4); Monocytes # 0.3 K/mm3 (0.1-1.0); Monocytes % 4.8 % (1.7-9.3); Neutrophils % 57.9 % (37.0-80.0); Platelet Count 244 K/mm3 (142-424); Red Blood Count 4.94 M/mm3 (4.20-5.40); Red Cell Distribution Width 14.4 % (11.5-17.5); White Blood Count 6.8 K/mm3 (4.8-10.8)
[2023-01-22 14:48] LABS: Alanine Aminotransferase 18 U/L (12-78); Albumin Level 4.1 g/dl (3.5-5.0); Albumin/Globulin Ratio 1.3 (1.1-1.8); Alkaline Phosphatase 103 U/L (38-126); Anion Gap 9.3 mEq/L (5-15); Aspartate Amino Transferase 35 U/L (14-36); Bilirubin,Total 0.4 mg/dl (0.2-1.3); Blood Urea Nitrogen 21 mg/dl (7-17); Calcium 9.2 mg/dl (8.4-10.2); Carbon Dioxide 31 mmol/L (22.0-30.0); Chloride 103 mmol/L (98-107); Creatinine Clearance Estimated 71 mL/min (50-200); Estimated Glomerular Filt Rate 44 ml/min (>60); GFR (African American) 53 ML/MIN (>60); Globulin 3.2 g/dL (1.3-3.2); Glucose 94 mg/dl (74-100); Potassium 4.3 mmoL/L (3.5-5.1); Sodium 139 mmol/L (136-145); Total Protein,Serum 7.3 g/dl (6.3-8.2)
[2023-01-22 15:00] LABS: NT Pro Brain Natriuretic Pep. 236 pg/mL (0-125)
[2023-01-22 15:01] VITALS: BP 111/61; PULSE 51; RESP 16; O2SAT 96
[2023-01-22 15:01] LABS: Troponin I < 0.01 ng/ml (0.00-0.034)
--- NOTE | 2023-01-22 15:15 | HMH.EDGENADL ---
Discharge Plan Disposition Patient Disposition: Home, Self-Care Prescriptions Prescriptions: No Action buspirone 5 mg tablet 10 mg PO BID zolpidem 5 mg tablet 5 mg PO QHS PRN (Reason: .) rivaroxaban 20 mg tablet 20 mg PO QPM Qty: 90 3RF vitamin B complex [B Complex-Vitamin B12] tablet 1 tab PO DAILY naproxen sodium [Aleve] 220 mg tablet 220 mg PO DAILY PRN (Reason: .) calcium carbonate [Calcium 600] 600 mg calcium (1,500 mg) tablet 600 mg PO DAILY paroxetine HCl 10 mg tablet 20 mg PO DAILY tramadol 50 MG tablet 50 mg PO BID PRN (Reason: pain) Qty: 60 1RF spironolactone 25 mg tablet See Rx Instructions .ROUTE .COMPLEX Qty: 90 3RF Dose Instruction: TAKE 1 TABLET DAILY Rx Instructions: TAKE 1 TABLET DAILY tramadol 50 MG tablet 50 mg PO BID losartan 50 MG tablet See Rx Instructions .Route .COMPLEX Rx Instructions: TAKE 1 TABLET DAILY omeprazole 40 MG capsule,delayed release(DR/EC) 40 mg PO DAILY aspirin 81 MG tablet,delayed release (DR/EC) 81 mg PO DAILY rosuvastatin 5 MG tablet 5 mg PO QHS amiodarone 100 MG tablet 100 mg PO DAILY metoprolol tartrate 25 MG tablet See Rx Instructions .Route .COMPLEX Rx Instructions: TAKE ONE-HALF (1/2) TABLET TWICE A DAY hydrochlorothiazide 12.5 MG tablet See Rx Instructions .Route .COMPLEX Rx Instructions: TAKE 1 TABLET DAILY Referrals Follow up/Referrals: Provider,Referral, MD [Primary Care Provider] - See instructions Activity Restrictions/Add. Instructions Additional Instructions/Restrictions: Call your family doctor to establish care for this visit to the emergency department and schedule follow-up within 48 hours to ensure improvement. If you have any worsening of your condition or any other concerning signs or symptoms, return to the emergency department or your primary care doctor for further evaluation. Clinical Impressions Clinical Impression: Acute pain of left shoulder Instructions Patient Instructions: DI for Acute Pain -- Adult Discharge ED Provider: Jah Holman General Adult [facility] General Chief complaint: PAIN Stated complaint: cp Time Seen by Provider: 01/22/23 13:57 Mode of Arrival: Ambulatory Source of Information: Patient Limitations: No Limitations Description of Symptoms (Recalled from ER Triage Doc. by RN): Patient reports left arm pain and left sided facial numbness for several days. History of Present Illness HPI narrative: 72-year-old female with history of hypertension, hyperlipidemia, DDD, A-fib on Xarelto presenting with left face and arm heaviness. Patient states been going on for several days, got worse today when left arm heaviness and left-sided face pain/numbness was associated with a shooting left-sided chest pain. Denies shortness of breath, diaphoresis, fevers or chills, weakness, vision changes, nausea or vomiting. Intermittent, not exacerbated or made better by anything. Related Data Home Medications Medication Instructions Recorded Confirmed naproxen sodium 220 mg tablet 220 mg PO DAILY PRN . 10/05/17 08/26/21 (Aleve) vitamin B complex (B 1 tab PO DAILY Supplement 10/05/17 08/26/21 Complex-Vitamin B12 tablet) calcium carbonate 600 mg calcium 600 mg PO DAILY . 11/01/18 08/26/21 (1,500 mg) tablet (Calcium) zolpidem 5 mg tablet 5 mg PO QHS PRN . 12/06/18 08/26/21 buspirone 5 mg tablet 10 mg PO BID . 11/14/19 08/26/21 paroxetine HCl 10 mg tablet 20 mg PO DAILY . 11/14/19 08/26/21 amiodarone 100 mg tablet 100 mg PO DAILY . 02/05/21 08/26/21 aspirin 81 mg tablet,delayed 81 mg PO DAILY . 02/05/21 08/26/21 release hydrochlorothiazide 12.5 mg tablet See Rx Instructions .Route 02/05/21 08/26/21 .COMPLEX . losartan 50 mg tablet See Rx Instructions .Route 02/05/21 08/26/21 .COMPLEX . metoprolol tartrate 25 mg tablet See Rx Instructions .Route 02/05/21 08/26/21 .COMPLEX . om
[2023-01-22 15:19] VITALS: BP 111/61; PULSE 52; RESP 18; TEMP 36.8; O2SAT 97
[2023-01-22 15:24] VITALS: BP 111/61; PULSE 52; RESP 16; TEMP 36.7; O2SAT 95
== END 2023-01-22 15:25 | disposition home or self-care (01) ==
PROVIDERS: Emergency Provider Emergency Medicine
DX: R07.9 Chest pain, unspecified (principal); M25.512 Pain in left shoulder; R20.0 Anesthesia of skin; I10 Essential (primary) hypertension; E78.5 Hyperlipidemia, unspecified; I48.91 Unspecified atrial fibrillation; Z79.01 Long term (current) use of anticoagulants
CPT/HCPCS: 71045; 80053; 83880; 84484; 85025; 93005; 99285

== ENCOUNTER 2023-05-17 12:54 | Outpatient (CLI) | payer MEDICARE, OTHER, SELFPAY ==
--- NOTE | 2023-05-17 12:57 | MM_ITS ---
PROCEDURE INFORMATION: Exam: MG Bilateral Screening 3D Mammography Exam date and time: 05/17/2023 1:00 PM Age: 72 years old Clinical indication: Screening examination TECHNIQUE: Imaging protocol: Bilateral Screening tomosynthesis and 2D mammography including computer-aided detection (CAD) when performed. COMPARISON: 1. MG MM DIG SCREENING MAMM BI W/CAD 04/27/2022 3:56 PM 2. MG MM DIG SCREENING MAMM BI W/CAD 04/02/2021 1:27 PM 3. MG MM DIG SCREENING MAMM BI W/CAD 04/01/2020 3:19 PM FINDINGS: MAMMOGRAPHY: Breast composition: There are scattered areas of fibroglandular density. Mass: No suspicious masses. Architectural distortion: No suspicious distortion. Calcifications: No suspicious calcifications. Asymmetric density: None. Skin thickening: None. Axillary adenopathy: None. IMPRESSION: No mammographic evidence of malignancy. Annual screening is recommended unless otherwise clinically indicated. ASSESSMENT: BI-RADS Category 1: Negative
== END 2023-05-17 23:59 ==
LOC: RAD 12:54
PROVIDERS: PCP Internal Medicine Adolescent Medicine; Visit Provider Internal Medicine Adolescent Medicine
DX: Z12.31 Encounter for screening mammogram for malignant neoplasm of breast (principal)
CPT/HCPCS: 77063; 77067

== ENCOUNTER 2023-08-02 11:32 | Outpatient (CLI) | payer OTHER, SELFPAY ==
--- NOTE | 2023-08-02 11:57 | XR_ITS ---
FINAL REPORT CLINICAL HISTORY: on amio, chest pain and pressure COMPARISON: 01/22/2023 FINDINGS: TWO-VIEW CHEST The heart size is normal. The mediastinum is normal. There are mild bibasilar opacities, may represent atelectasis or scar. There is no pneumothorax. IMPRESSION: Bibasilar atelectasis versus scar. Reviewed, Interpreted and Dictated by Alexis Sher III, MD Transcribed by Laura Lyn Authenticated and [facility]
[2023-08-02 12:11] LABS: Basophils # 0.1 K/mm3 (0-0.2); Basophils % 1.4 % (0.1-2.0); Eosinophils # 0.4 K/mm3 (0.0-0.4); Eosinophils % 6.5 % (0.1-12.0); Hematocrit 42.8 % (37.0-47.0); Hemoglobin 13.6 g/dL (12.2-16.2); Lymphocytes # 1.8 K/mm3 (0.7-4.5); Lymphocytes % 27.3 % (10-50); Mean Corpuscular HGB Conc 31.8 g/dL (31.8-35.4); Mean Corpuscular Hemoglobin 29.8 pg (27.0-31.2); Mean Corpuscular Volume 93.6 fl (81-99); Mean Platelet Volume 8.4 fl (7.4-10.4); Monocytes # 0.3 K/mm3 (0.1-1.0); Monocytes % 4.5 % (1.7-9.3); Neutrophils % 60.3 % (37.0-80.0); Platelet Count 220 K/mm3 (142-424); Red Blood Count 4.57 M/mm3 (4.20-5.40); Red Cell Distribution Width 14.2 % (11.5-17.5); White Blood Count 6.6 K/mm3 (4.8-10.8)
[2023-08-02 12:46] LABS: Alanine Aminotransferase 26 U/L (12-78); Albumin Level 3.9 g/dl (3.5-5.0); Alkaline Phosphatase 118 U/L (38-126); Anion Gap 7.3 mEq/L (5-15); Aspartate Amino Transferase 37 U/L (14-36); Bilirubin,Direct 0.1 mg/dl (0.0-0.4); Bilirubin,Indirect 0.5 mg/dL (0.0-0.9); Bilirubin,Total 0.6 mg/dl (0.2-1.3); Bilirubin,Unconjugated 0.4 mg/dL (0.0-1.1); Blood Urea Nitrogen 21 mg/dl (7-17); Calcium 9.5 mg/dl (8.4-10.2); Carbon Dioxide 29 mmol/L (22.0-30.0); Chloride 105 mmol/L (98-107); Chol/HDL Ratio 3.5 (1-3.5); Cholesterol 191 mg/dl (140-200); Estimated Glomerular Filt Rate 40 ml/min (>60); GFR (African American) 49 ML/MIN (>60); Glucose 101 mg/dl (74-100); HDL Cholesterol 54 mg/dl (40-60); Potassium 4.3 mmoL/L (3.5-5.1); Sodium 137 mmol/L (136-145); Total Protein,Serum 6.2 g/dl (6.3-8.2); Triglycerides 190 mg/dl (30-150); VLDL Cholesterol 38 mg/dL (0-40)
[2023-08-02 12:57] LABS: Direct LDL Cholesterol 85.63 mg/dL (100-129)
[2023-08-02 12:58] LABS: Free T4 (Free Thyroxine) 0.91 ng/dl (0.78-2.19)
== END 2023-08-02 23:59 | disposition home or self-care (01) ==
LOC: LAB 11:33
PROVIDERS: PCP Internal Medicine Adolescent Medicine; Visit Provider Nurse Practitioner
DX: R06.00 Dyspnea, unspecified (principal); R00.1 Bradycardia, unspecified; K21.9 Gastro-esophageal reflux disease without esophagitis; E78.2 Mixed hyperlipidemia; I10 Essential (primary) hypertension; I48.0 Paroxysmal atrial fibrillation; I11.9 Hypertensive heart disease without heart failure; E11.9 Type 2 diabetes mellitus without complications; Z79.899 Other long term (current) drug therapy
CPT/HCPCS: 36415; 71046; 80048; 80061; 80076; 84439; 84443; 85025

== ENCOUNTER 2023-08-10 15:03 | Outpatient (CLI) | payer MEDICARE, OTHER, SELFPAY ==
--- NOTE | 2023-08-10 15:03 | CA_ITS ---
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 46.0 (40-130 cm/s) MV A Velocity 74.0 (40-130 cm/s) E/A Ratio 0.62 MV PHT 89.0 ms Tricuspid Valve TR P. Velocity 254.00 cm/s RAP Estimate 10.00 mmHg RVSP 35.90 mmHg Left Ventricle The left ventricle is normal size. The left ventricular systolic function is normal. The left ventricular ejection fraction is within the normal range. There is normal left ventricular wall thickness. There is normal LV segmental wall motion. The left ventricular diastolic function is normal. LVEF is 55%. Right Ventricle The right ventricle is normal size. The right ventricular systolic function is normal. Atria The left atrium size is normal. The right atrium size is normal. Aortic Valve The aortic valve opens well. There is no aortic valvular stenosis. No aortic regurgitation is present. Mitral Valve The mitral valve is normal in structure. No evidence of mitral valve stenosis. There is no mitral valve regurgitation noted. Tricuspid Valve The tricuspid valve leaflets are thin and pliable. Mild tricuspid regurgitation. RVSP is 20-25 mmHg. Pulmonic Valve The pulmonary valve is normal in structure. Mild pulmonic regurgitation. Great Vessels The aortic root is normal in size. The ascending aorta is normal in size. IVC is normal in size and collapses >50% with inspiration. Pericardium There is no pericardial effusion. Other Information Study Quality: Fair Conclusion Normal biventricular systolic function. Mild TR, mild PI. Electronically signed by : Amber Trotter MD 08/14/2023 13:03:42
== END 2023-08-10 23:59 ==
LOC: RT 15:03
PROVIDERS: PCP Internal Medicine Adolescent Medicine; Visit Provider Nurse Practitioner
DX: Z79.899 Other long term (current) drug therapy (principal); R00.1 Bradycardia, unspecified; E78.2 Mixed hyperlipidemia; I10 Essential (primary) hypertension; I48.0 Paroxysmal atrial fibrillation
CPT/HCPCS: 93306

== ENCOUNTER 2023-09-05 09:21 | Day surgery (SDC) | payer MEDICARE, OTHER, SELFPAY ==
[2023-08-31 13:02] VITALS: BMI 36.5
[2023-09-05] MEDS: LACTATED RINGERS 1000ML 1,000 ML 100 ML IV (10:05)
[2023-09-05 10:07] VITALS: BP 134/80; PULSE 75; RESP 18; TEMP 37.1; O2SAT 95; BMI 36.5
--- NOTE | 2023-09-05 10:25 | P.PNANES_ITS ---
[facility] Disclaimer: The information contained in this section may have been updated after the patient was seen, as this information can be updated by other users. Medical History Heart murmur Surgical History History of cholecystectomy History of hysterectomy Family History Other Family history of acute heart failure Social History Smoking Status: Never smoker second hand exposure: No alcohol intake: never substance use type: denies use current occupational status: retired Travel in the last 8 weeks: None household members: spouse housing: house current occupational exposures/hazards: No caffeine: Yes [facility] Anesthesia Checklist Patient Identification Patient Identification: Arm Band and Verbal (Name & ) Structural Data Admitted From: Home Planned Operative Procedure/s: Colonoscopy Consent for Planned Operative Procedure(s) Verified: Yes NPO Status Verified Time NPO: 00:00 Additional verifications Anesthesia Reactions: No Hx Blood Transfusions: No Blood Transfusion Reaction: No Airway Assessment Mallampati Score:: Class IV C-Spine Mobility Assessed: Yes TMJ Mobility Assessed: Yes Dentition: Poor Dentition Neurological Assessment Level of Consciousness: Awake Hx Seizures: No Numbness or tingling in extremities: No Anesthesia Plan Anesthesia Risk discussed: Yes Anesthesia Plan: Verified ASA Class: III Anesthesia Type: MAC
[2023-09-05 10:54] VITALS: O2SAT 95
[2023-09-05 11:30] VITALS: BP 128/67; PULSE 61; RESP 16; TEMP 36.3; O2SAT 92
--- NOTE | 2023-09-05 11:30 | HMH.SCOPE ---
Procedure: Date: 09/05/23 Patient Date of :: 1950 Procedure Performed:: Colonoscopy with polypectomy by means other than snare Indications:: Screening Performing Provider:: Haider Ring MD Referring Provider:: . Sedation:: Monitored anesthesia care Procedure:: After informed consent was obtained the patient was taken to the endoscopy suite. Sedation ensued after the patient was transferred to the left lateral decubitus position. Pulse, blood pressure, and oxygen saturation were monitored throughout the procedure. Digital rectal exam revealed no significant abnormality. The colonoscope was placed in position. The entire colon was evaluated. The colonoscope was carefully removed and the patient was transferred to recovery in stable condition. Please see findings and specimens below for detail. Findings:: Bowel preparation moderate Moderate spasticity/lack of relaxation Moderate tortuosity Hemorrhoidal cushion Follow the 40 cm Specimens:: Polyp at 40 cm (cold biopsy forceps) Recommendations:: Timing of repeat colonoscopy is pending pathology will likely be between 2-3 years secondary to moderate preparation, spasticity/lack of relaxation, and tortuosity. Complications:: No immediate Estimated blood obtained (mL): 1 Colonoscopy Component Colonoscopy Component Was a colonoscopy performed during today's procedure?: Yes Recommended follow up colonoscopy of at least 10 years?: No If no, follow up colonoscopy recommended in ___ years?: (See above) Reason for not recommending >/= 10 yr follow-up interval?: (See above)
[2023-09-05 11:40] VITALS: BP 137/69; PULSE 60; RESP 16; O2SAT 93
[2023-09-05 11:50] VITALS: BP 134/91; PULSE 64; O2SAT 94
[2023-09-05 12:00] VITALS: BP 156/83; PULSE 63; O2SAT 95
== END 2023-09-05 12:00 | disposition home or self-care (01) ==
PROVIDERS: PCP Internal Medicine Adolescent Medicine; Visit Provider Surgery
PROC: 0DJD8ZZ Inspection of Lower Intestinal Tract, Via Natural or Artificial Opening Endoscopic (ICD-10-PCS; CPT 45380; principal; 2023-09-05 13:00)
DX: Z12.11 Encounter for screening for malignant neoplasm of colon (principal); K64.8 Other hemorrhoids; K63.5 Polyp of colon
CPT/HCPCS: 45380

== ENCOUNTER 2023-11-22 14:46 | Outpatient (POV) | payer MEDICARE, OTHER, SELFPAY ==
[2023-11-22 15:17] VITALS: BP 123/50; PULSE 66; RESP 18; O2SAT 97; BMI 34.9
--- NOTE | 2023-11-22 15:30 | EXP.PAIN.SOA ---
[facility] Disclaimer: The information contained in this section may have been updated after the patient was seen, as this information can be updated by other users. Medical History Heart murmur Surgical History History of cholecystectomy History of hysterectomy Family History Other Family history of acute heart failure Social History Smoking Status: Never smoker second hand exposure: No alcohol intake: never substance use type: denies use current occupational status: retired Travel in the last 8 weeks: None household members: spouse housing: house current occupational exposures/hazards: No caffeine: Yes PM Subjective & Objective Subjective Subjective:: Patient is a pleasant 73-year-old female who presents today for follow-up. Today she rates her pain a 7 out of 10. Patient states her pain is all in her low back with occasional pains into her bilateral lower extremities. Patient does describe this as an aching, throbbing sensation with numbness and tingling into her lower legs. Patient does state the pain interferes with her ability perform activities of daily living such as cooking and cleaning. Patient denies any specific trauma or injury that initially started the symptoms. Patient does state that she has had chronic low back pain for years and its progressively worsened as she has gotten older. Patient does states she has tried [id number] Tylenol along with muscle relaxer of methocarbamol from her primary care with no additional change. She denies any prior injection or surgery history to her back. Patient has tried at home stretching exercise for longer than 6 weeks with no additional change. Her Roque has been reviewed and is appropriate. Review of Systems: General: No recent weight changes, no fever, no sleep disturbances Respiratory: No cough, no shortness of air, no recurring pulmonary infections Cardiovascular/peripheral vascular: No chest pain, no palpitations, no edema, no shortness of breath Gastrointestinal: No new onset incontinence, normal bowel movements reported Genitourinary: No new onset incontinence Musculoskeletal: Low back pain, bilateral leg pain Psychiatric: [Normal mood/affect] Neurological: [Denies weakness in extremities], [denies balance issues] Pain at rest (0-10 scale): 7 Objective Objective:: Physical Exam: General: Alert and oriented x3, no acute distress, pleasant and cooperative Lungs: Respirations even and unlabored, symmetrical chest expansion Eyes: PERRL Musculoskeletal: Flexion and extension of lumbar [spine] somewhat guarded secondary to pain, [antalgic gait noted] Neurological: Speech clear, no gross sensory deficit Has patient had previous pain injection?: No Conservative treatment options previously tried: Home exercise plan Length of treatment: Longer than 6 weeks Meds Home Medications and Allergies Home Medications ?Medication ?Instructions ?Recorded ?Confirmed ?Type buspirone 5 mg tablet 10 mg PO BID . 11/14/19 11/22/23 History rivaroxaban 20 mg tablet 20 mg PO QPM Blood thinner #90 tabs 12/18/20 11/22/23 Rx amiodarone 100 mg tablet 100 mg PO DAILY . 02/05/21 11/22/23 History aspirin 81 mg tablet,delayed 81 mg PO DAILY . 02/05/21 11/22/23 History release hydrochlorothiazide 12.5 mg tablet See Rx Instructions .Route 02/05/21 11/22/23 History .COMPLEX . losartan 50 mg tablet See Rx Instructions .Route 02/05/21 11/22/23 History .COMPLEX . rosuvastatin 5 mg tablet 5 mg PO QHS . 02/05/21 11/22/23 History acetaminophen 325 mg capsule 325 mg PO QID PRN Pain 01/24/23 11/22/23 History (Tylenol) metoprolol tartrate 25 mg tablet 25 mg PO BID . 01/24/23 11/22/23 History multivitamin-ferrous 1 tab PO DAILY 01/24/23 11/22/23 History fumarate-folic acid 18 mg-400 mcg tablet (Centrum Complete) trazodone 50 mg tablet 50 mg PO DAILY 01/24/23 11/22/23 History spironolactone 25 mg tablet See Rx Instructions .Route 02/23/23 11/22/23 Rx .COMPLEX #90 tabs methocarbamol 750 mg tablet 750 mg PO Q8HP PRN Pain 11/22/23 11/22/23 History New Prescriptions to Start Prescriptions: Allergies Allergy/AdvReac Type Severity Reaction Status Date / Time No Known Allergies Allergy Verified 09/05/23 10:08 Assessment and Plan *Assessment and plan (1) Degenerative joint disease (DJD) of lumbar spine: Status: Chronic Qualifiers: Spinal osteoarthritis complication: with radiculopathy Qualified Code(s): M47.26 - Other spondylosis with radiculopathy, lumbar region Category: Medical Code(s): M47.816 - Spondylosis without myelopathy or radiculopathy, lumbar region (2) Lumbar radiculopathy: Status: Acute Category: Medical Code(s): M54.16 - Radiculopathy, lumbar region Plan Patient is experiencing significant pain in her low back with numbness and tingling into her legs. I did discuss with the patient that ideally she would benefit from a lumbar epidural steroid injection L4-L5. Patient did have point tenderness on the lower aspect of her lumbar spine during today's visit. Risk and benefits were discussed with the patient however at this time she states she would like to wait. She states her has been more under the weather and she is worried that if she had the injection that she would be able to help as needed with his care. I will order the patient a compounded cream and send in a 2-week dose of baclofen 5 mg 3 times daily as needed. Patient was counseled to discontinue her methocarbamol while taking this medication. Patient will return to clinic in 1 month for reevaluation of symptoms and plan of care. Patient has been instructed to contact the clinic with any concerns before the next appointment. Dr. Berry has reviewed this note and agrees with this plan of care. This note was dictated using voice recognition software and make contain errors or omissions. All injections are used with Lidocaine or Bupivacaine and Depo Medrol.
== END 2023-11-22 23:59 | disposition home or self-care (01) ==
PROVIDERS: PCP Internal Medicine Adolescent Medicine; Visit Provider Nurse Practitioner Family
DX: M47.26 Other spondylosis with radiculopathy, lumbar region (principal); Z73.89 Other problems related to life management difficulty; Z79.899 Other long term (current) drug therapy
CPT/HCPCS: 99212; G0463

== ENCOUNTER 2024-01-15 13:47 | Outpatient (POV) | payer MEDICARE, OTHER, SELFPAY ==
[2024-01-15 14:04] VITALS: BP 140/75; PULSE 61; RESP 16; O2SAT 98; BMI 34.0
--- NOTE | 2024-01-15 16:19 | A.OFFVIS_ITS ---
[facility] Disclaimer: The information contained in this section may have been updated after the patient was seen, as this information can be updated by other users. Medical History Heart murmur Surgical History History of cholecystectomy History of hysterectomy Family History Other Family history of acute heart failure Social History Smoking Status: Never smoker second hand exposure: No alcohol intake: never substance use type: denies use current occupational status: other Travel in the last 8 weeks: None household members: spouse housing: house current occupational exposures/hazards: No caffeine: Yes PM Subjective & Objective Subjective Subjective:: Patient is a pleasant 73-year-old female who presents today for follow-up. She rates her pain today an 8 out of 10. Patient denies any new trauma or injury. She does state that she is experiencing continued pain that is from her tailbone all the way down into her lower extremities bilaterally. Patient states that it is a constant aching, throbbing sensation with numbness and tingling and does interfere with her ability perform activities of daily living. Patient has been tried on oral medications including muscle relaxers with her last 1 being baclofen from our office. Patient states that it is it did not seem to really make much difference. Patient has been tried on methocarbamol in the past along with [id number] Tylenol and compounded cream. Patient states that the cream does help temporarily and that a heating pad does seem to also give temporary relief however the pain affecting her ability to sleep even. Patient states she has to change positions frequently due to the pain. Patient is interested in injection therapy. Her Roque has been reviewed and is appropriate. Review of Systems: General: No recent weight changes, no fever, no sleep disturbances Respiratory: No cough, no shortness of air, no recurring pulmonary infections Cardiovascular/peripheral vascular: No chest pain, no palpitations, no edema, no shortness of breath Gastrointestinal: No new onset incontinence, normal bowel movements reported Genitourinary: No new onset incontinence Musculoskeletal: Tailbone pain, bilateral leg pain Psychiatric: [Normal mood/affect] Neurological: [Denies weakness in extremities], [denies balance issues] Pain at rest (0-10 scale): 8 Objective Objective:: Physical Exam: General: Alert and oriented x3, no acute distress, pleasant and cooperative Lungs: Respirations even and unlabored, symmetrical chest expansion Eyes: PERRL Musculoskeletal: Flexion and extension of sacrum [spine] somewhat guarded secondary to pain, [antalgic gait noted] point tenderness along the lower sacral spine with palpation Neurological: Speech clear, no gross sensory deficit Has patient had previous pain injection?: No Conservative treatment options previously tried: Home exercise plan Length of treatment: Longer than 12 weeks Meds Home Medications and Allergies Home Medications ?Medication ?Instructions ?Recorded ?Confirmed ?Type buspirone 5 mg tablet 10 mg PO BID . 11/14/19 01/15/24 History rivaroxaban 20 mg tablet 20 mg PO QPM Blood thinner #90 tabs 12/18/20 01/15/24 Rx amiodarone 100 mg tablet 100 mg PO DAILY . 02/05/21 01/15/24 History aspirin 81 mg tablet,delayed 81 mg PO DAILY . 02/05/21 01/15/24 History release hydrochlorothiazide 12.5 mg tablet See Rx Instructions .Route 02/05/21 01/15/24 History .COMPLEX . losartan 50 mg tablet See Rx Instructions .Route 02/05/21 01/15/24 History .COMPLEX . rosuvastatin 5 mg tablet 5 mg PO QHS . 02/05/21 01/15/24 History acetaminophen 325 mg capsule 325 mg PO QID PRN Pain 01/24/23 01/15/24 History (Tylenol) metoprolol tartrate 25 mg tablet 25 mg PO BID . 01/24/23 01/15/24 History multivitamin-ferrous 1 tab PO DAILY 01/24/23 01/15/24 History fumarate-folic acid 18 mg-400 mcg tablet (Centrum Complete) trazodone 50 mg tablet 50 mg PO DAILY 01/24/23 01/15/24 History spironolactone 25 mg tablet See Rx Instructions .Route 02/23/23 01/15/24 Rx .COMPLEX #90 tabs baclofen 5 mg tablet 5 mg PO TID PRN muscle spasm #42 11/22/23 01/15/24 Rx tabs methocarbamol 750 mg tablet 750 mg PO Q8HP PRN Pain 11/22/23 01/15/24 History New Prescriptions to Start Prescriptions: Allergies Allergy/AdvReac Type Severity Reaction Status Date / Time No Known Allergies Allergy Verified 01/15/24 14:05 Assessment and Plan *Assessment and plan (1) Lumbar radiculopathy: Status: Acute Category: Medical Code(s): M54.16 - Radiculopathy, lumbar region (2) Coccygeal pain, chronic: Status: Acute Category: Medical Code(s): M53.3 - Sacrococcygeal disorders, not elsewhere classified; G89.29 - Other chronic pain Plan Patient is experiencing worsening pain throughout her lower sacral spine with point tenderness with palpation and numbness and tingling into her lower extremities. I did discuss with patient that she may benefit from a caudal epidural. Risk and benefits were discussed with patient and she would like to proceed forward with this plan of care. Patient has tried and failed conservative therapy including continued at home stretching exercise for longer than 12 weeks. Patient has also tried oral medications, heat and ice and topicals. We will schedule the patient for a caudal epidural under fluoroscopy. Patient is currently on blood thinners and we will reach out to Dr. Cotton's office that she can stop this medication prior to her injection. Patient acknowledges understanding. Patient has been instructed to contact the clinic with any concerns before the next appointment. Dr. Berry has reviewed this note and agrees with this plan of care. This note was dictated using voice recognition software and make contain errors or omissions. All injections are used with Lidocaine or Bupivacaine and Depo Medrol.
== END 2024-01-15 23:59 | disposition home or self-care (01) ==
LOC: SC.PAIN 13:49
PROVIDERS: PCP Internal Medicine Adolescent Medicine; Visit Provider Nurse Practitioner Family
DX: M54.16 Radiculopathy, lumbar region (principal); M53.3 Sacrococcygeal disorders, not elsewhere classified; G89.29 Other chronic pain; Z73.89 Other problems related to life management difficulty
CPT/HCPCS: 99212; G0463

== ENCOUNTER 2024-01-30 12:19 | Day surgery (SDC) | payer MEDICARE, OTHER, SELFPAY ==
[2024-01-30 12:59] VITALS: BP 117/64; PULSE 70; RESP 16; O2SAT 98; BMI 32.5
[2024-01-30] MEDS: methylPREDNISolone ACETATE 80MG/ML VIAL 80 MG (13:06)
[2024-01-30 13:07] VITALS: BP 142/66; PULSE 68; RESP 18; O2SAT 96
[2024-01-30 13:08] VITALS: BP 142/66; PULSE 69; RESP 18; O2SAT 97
--- NOTE | 2024-01-30 13:10 | EXP.PAIN.PRO ---
Procedure Date: 01/30/24 Time: 13:00 Anesthesiologist:: Braulio Sandy CRNA Complications:: None Pre-procedure Diagnosis:: Degenerative disc lumbar spine multilevels. lumbar radiculopathy. Post-procedure Diagnosis:: Same. Indications for Procedure:: Patient is a pleasant 73-year-old female comes our clinic today for caudal epidural steroid injection. She is reporting significant improvement terms of her overall low back pain as well as bowel hip and leg pain with previous caudal epidural steroid injection in our clinic. This has been almost a year ago since her previous injection. She rates her pain 7/10. Her main complaint is low back pain as well as bilateral hip and leg radicular symptoms. Procedure Details:: Pre-procedure Diagnosis:: Degenerative disc disease lumbar spine multilevels. Lumbar radiculopathy. Lumbar postlaminectomy syndrome. Lumbar spondylosis Post-procedure Diagnosis:: Informed consent was obtained and the risks and benefits of the procedure were explained to the patient. The patient was taken to the procedure room and noninvasive monitors placed, including noninvasive blood pressure cuff and pulse oximeter. The back was viewed using C-arm Fluoroscopy and prepped using Chloraprep as a cleansing solution and the caudal epidural space was visualized using fluoroscopy in a lateral position. Skin and subcutaneous tissues were anesthetized using lidocaine 1.5% and a 25-gauge needle. After this, an 22-gauge spinal needle was placed into the caudal epidural space and advanced using fluoroscopic guidance. After confirmation of needle placement in the caudal space, with dye, a solution containing normal saline, 3 mL and Depo-Medrol 80 mg and 1 mL of 1% lidocaine were incrementally injected into the caudal epidural space. The patient tolerated the procedure well with no complications. Plan and Disposition:: Patient was discharged without incident.
[2024-01-30] MEDS: IOPAMIDOL-200 (41%);10ML VIAL 10 ML IV (13:12)
[2024-01-30 13:13] VITALS: BP 124/64; PULSE 69; RESP 16; O2SAT 98
== END 2024-01-30 13:15 | disposition home or self-care (01) ==
PROVIDERS: PCP Internal Medicine Adolescent Medicine; Visit Provider Nurse Anesthetist, Certified Registered
DX: M51.16 Intervertebral disc disorders with radiculopathy, lumbar region (principal); M96.1 Postlaminectomy syndrome, not elsewhere classified; M47.26 Other spondylosis with radiculopathy, lumbar region
CPT/HCPCS: 62323; J1010; Q9966

== ENCOUNTER 2024-02-12 14:38 | Outpatient (POV) | payer MEDICARE, OTHER, SELFPAY ==
--- OUTSIDE RECORDS SUMMARY | 2024-02-12 14:40 | XMS_ITS ---
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 Name Role Phone Bandar Zamora Primary Care Provider Rajni Polanco Unavailable [phone] Allergies Allergen (clinical drug ingredient) Drug/Non Drug Allergy documented on EMR Reaction Allergy Type Onset Date Status Macrobid argueta, nausea Drug Allergy Active REASON FOR VISIT congestion, wheezing , chest tightest for 4 days, not sleeping Medications Medication SIG (Take, Route, Frequency, Duration) Notes Start Date End Date Status Abilify 5 mg 2 tabs orally once a day at bedtime 08/22/2023 Active dextromethorphan-promethazin e 15 mg-6.25 mg/5 mL 5 mL orally every 6 hours for 10 days 02/02/2024 Active spironolactone 25 mg 1 tab(s) orally onc e a day for 90 days Active loratadine 10 mg 1 tab(s) orally once a day for 30 days 02/02/2024 Active Xarelto 20 mg 1 tab orally once a day for 90 days Active Calcium 600+D 600 mg-800 int l units 1 tab(s) orally 2 times a day Active Vitamin B12 1 tab(s) orally daily Active Diclofenac Sodium Topical 1% 2 gram appl ied topically 4 times a day for 30 days 01/25/2023 Active Metoprolol Tartrate 25 mg TAKE 1 TABLET TWICE A DAY Active methocarbamol 750 mg 1 tab orally every 8 hours prn for 15 days Active Crestor 5 mg 1 tab(s) orally once a day (at bedtime) for 90 days Active losartan 50 mg 1 tab(s) orally once a day for 90 days Active hydroCHLOROthiazide 12.5 mg 1 cap(s) ora lly once a day for 90 days Active amiodarone 100 mg 1 tab(s) orally once a day for 90 days Active aspirin 81 mg 1 tab(s) orally once a day Active busPIRone 10 mg 1 tab(s) orally 2 times a day for 90 days Active Vital Signs Temperature 98.2 degrees Fahrenheit 02/02/20 24 Heart Rate 68 /min 02/02/2024 Blood pressure systolic 122 mm Hg 02/02/20 24 Blood pressure diastolic 80 mm Hg 024 Height 68 in 02/02/2024 Weight 230 lbs 02/02/2024 BMI 34.97 kg/m2 02/02/2024 Encounters Encounter Location Date Provider Diagnosis [address] [id number] 02/02/2024 Rajni Polanco Viral URI with cough J06.9 Assessments Encounter Date Diagnosis (ICD Code) Assessment Notes Treatment Notes Treatment Clinical Notes 02/02/2024 Viral URI with cough (ICD-10 - J06.9) Reassurance. Discussed the etiology & expected course of a viral URI and discussed the rationale for not prescribing antibiotics. Continue supportive care with PRN antipyretics, OTC cough/cold meds, nasal saline rinses/Neti pot with distilled water, salt water gargles, cough drops, and humidifier. Encourage PO hydration. Patient must be fever and vomit free x 24 hours without fever reducing medications before going back to school. Discussed the signs and symptoms of worsening condition and need for reassessment in clinic or ED. Keep previously scheduled physical exam or f/u sooner PRN. Patient/family voice understanding and are agreeable to this plan. Plan Of Treatment Medication Medication Name Sig Start Date Stop Date Notes dextromethorphan-promethazin e 15 mg-6.25 mg/5 mL 5 mL orally every 6 hours for 10 days 02/02/2024 loratadine 10 mg 1 tab(s) orally once a day for 30 days 02/02/2024 Treatment Notes Assessment Notes Viral URI with cough Reassurance. Discus sed the etiology & expected course of a viral URI and discussed the rationale for not prescribing antibiotics. Continue supportive care with PRN antipyretics, OTC cough/cold meds, nasal saline rinses/Neti pot with distilled water, salt water gargles, cough drops, and humidifier. Encourage PO hydration. Patient must be fever and vomit free x 24 hours without fever reducing medications before going back to school. Discussed the signs and symptoms of worsening condition and need for reassessment in clinic or ED. Keep previously scheduled physical exam or f/u sooner PRN. Patient/family voice understanding and are agreeable to this plan. Next Appt Details Follow Up: prn, Reason: Progress Notes * Mariela BROOKS FDOB:[birth year] (73 yo F)Acc No.[id number]:02/02/2024 Progress Notes Patient:?Mariela BROOKS Provider:?CLAUDE Lunsford :1950???Age:73 Y???Sex:Female D ate:02/02/2024 Address:[address] [place] [address], [place], [id number] Pcp:Bandar Zamora Subjective: * Chief Complaints: * ???1. Congestion, wheezing , chest tightest for 4 days. 2. Not sleeping. * HPI: ???gen:? Patient presents with yellow sputum producing cough starting 4 days ago.?She denies fevers, body aches, chills, ear pain, n/v/d, abd pain, rhinorrhea, sore throat, or dysuria. She is eating and drinking normally. No known sick contacts. Never had pneumonia, never smoked. * ROS:?ALLERGY:?no?Runny nose.?RESPIRATORY:?no?Shortness of breath.?Cough?yes.?CONSTITUTIONAL:?no?Loss of appetite.?no?Fever.?DERMATOLOGY:?no?Rash.?ENT:?Cough?yes.?no?Sore throat.? * Medical History:?HTN, Hyster ectomy, Hypercholestrolemia, Anxiety/depression, Hormone replacement therapy, Cardiac murmur, Mammogram 2016 - repeated 03/12- normal, normal again 03/2020 - normal 04/13 and 05/16, Vitamin B 12 deficiency, Insomnia, Neg ECHO and Cardiac GXT 2014, Atrial fibrillation 2017, Normal DEXA scan 2016 - and repeat is normal in 03/2020, positive Cologuard 2023 but negative colonoscopy. * Medications:?Taking aspirin 81 mg enteric coated tablet 1 tab(s) orally once a day , Taking Calcium 600+D 600 mg-800 intl units tablet 1 tab(s) orally 2 times a day , Taking Vitamin B12 1 tab(s) orally daily , Taking Diclofenac Sodium Topical 1% gel 2 gram applied topically 4 times a day , Taking Metoprolol Tartrate 25 mg Tablet TAKE 1 TABLET TWICE A DAY , Taking methocarbamol 750 mg tablet 1 tab orally every 8 hours prn , Taking Abilify 5 mg tablet 2 tabs orally once a day at bedtime , Taking spironolactone 25 mg tablet 1 tab(s) orally once a day , Taking Xarelto 20 mg Tablet 1 tab orally once a day , Taking busPIRone 10 mg tablet 1 tab(s) orally 2 times a day , Taking Crestor 5 mg tablet 1 tab(s) orally once a day (at bedtime) , Taking losartan 50 mg tablet 1 tab(s) orally once a day , Taking hydroCHLOROthiazide 12.5 mg capsule 1 cap(s) orally once a day , Taking amiodarone 100 mg tablet 1 tab(s) orally once a day , Medication List reviewed and reconciled with the patient * Allergies:?Macrobid: argueta, reynaldo sea. Objective: * Vitals:?Nurse: shanta, Pain: 0, Temp: 98.2, RR: 20, HR: 68, BP: 122/80, Ht: 68, Wt: 230, BMI:34.97. * Examination: ???General Examination: ?General?Pleasant and Cooperative, NAD on RA,.?Oral cavity:?Moist membranes.?Chest:?normal shape and expansion.?Heart:?RRR, No m/r/g,? No edema,.?HEENT:?erythematous oropharynx, TM's normal.?Lungs:?Lungs clear, No wheezes, crackles or rhonchi, Good air movement,.?Abdomen:?Soft, non-tender, No organomegaly or peritoneal signs..?Neurologic Exam:?no focal signs neurological deficits.?Skin:?without acute rashes.?Back:?normal,.?neck?supple,?no lymphadenopathy,.? Assessment: * Assessment: 1.?Viral URI with cough - J0 6.9 (Primary)??? Plan: * Treatment: * Follow Up:?prn * * Sign off status: Completed true * Provider:?CLAUDE Lunsford Date:?02/2024 Generated for Printi ng/Faxing/eTransmitting on:?02/12/2024 02:40 PM EDT History and Physical Notes * Examination Category Sub-Category Detail Notes General Examination HEENT: erythematous oropharynx, TM's normal Heart: RRR, No m/r/g, No ed marco antonio, Lungs: Lungs clear, No whee zes, crackles or rhonchi, Good air movement, Abdomen: Soft, non-tender, No organomegaly or peritoneal signs. Skin: without acute rashes Neurologic Exam: no focal signs neuro logical deficits Oral cavity: Moist membranes Back: normal, Chest: normal shape and exp ansion neck supple, no lymphaden opathy, General Pleasant and Coopera tive, NAD on RA,
--- OUTSIDE RECORDS SUMMARY | 2024-02-12 14:41 | XMS_ITS ---
Author Organization [facility] Address [address] [place] [address] Care Team Providers Care Corporate Director Of Pharmacy Name Role Phone Noah Bandar Primary Care Provider Rajni Davila [phone] Allergies Allergen (clinical drug ingredient) Drug/Non Drug Allergy documented on EMR Reaction Allergy Type Onset Date Status Macrobid argueta, nausea Drug Allergy Active REASON FOR VISIT wellness, not sleeping Medications Medication SIG (Take, Route, Frequency, Duration) Notes Start Date End Date Status methocarbamol 750 mg 1 tab orally every 8 hours prn for 15 days Active Metoprolol Tartrate 25 mg TAKE 1 TABLET TWICE A DAY Active spironolactone 25 mg 1 tab(s) orally onc e a day Active amiodarone 100 mg 1 tab(s) orally once a day for 90 days Active hydroCHLOROthiazide 12.5 mg 1 cap(s) ora lly once a day for 90 days Active losartan 50 mg 1 tab(s) orally once a day for 90 days Active Crestor 5 mg 1 tab(s) orally once a day (at bedtime) for 90 days Active Abilify 5 mg 2 tabs orally once a day at bedtime 08/22/2023 Active busPIRone 10 mg 1 tab(s) orally 2 times a day for 90 days Active Xarelto 20 mg TAKE 1 TABLET DAILY IN THE EVENING Active Diclofenac Sodium Topical 1% 2 gram appl ied topically 4 times a day for 30 days 01/25/2023 Active Vitamin B12 1 tab(s) orally daily Active Calcium 600+D 600 mg-800 int l units 1 tab(s) orally 2 times a day Active aspirin 81 mg 1 tab(s) orally once a day Active Immunizations Vaccine Route Administration Date Status Comme nts Fluzone High Dose IM Intramuscular 01/10/2024 Administered Problems Problem Type SNOMED Code ICD Code Onset Dates Problem Status W/U Status Risk Notes Problem [id number] Chronic major depressive disorder (F32.9) Active confirmed Vital Signs Temperature 97.8 degrees Fahrenheit 01/10/20 24 Heart Rate 72 /min 01/10/2024 Blood pressure systolic 124 mm Hg 01/10/20 24 Blood pressure diastolic 72 mm Hg 024 Height 68 in 01/10/2024 Weight 232 lbs 01/10/2024 BMI 35.27 kg/m2 01/10/2024 Encounters Encounter Location Date Provider Diagnosis [address] [address] 01/10/2024 Rajni Davila Essential hypertensi on I10 ; Medicare annual wellness visit, subsequent Z00.00 ; Other and unspecified hyperlipidemia E78.5 ; Episodic atrial fibrillation I48.0 ; Chronic insomnia F51.04 ; Vitamin D deficiency E55.9 ; Vitamin B12 deficiency E53.8 ; Arthralgia of multiple joints M25.50 ; DDD (degenerative disc disease), lumbosacral M51.37 ; Chronic major depressive disorder F32.9 ; BMI 35.0-35.9,adult Z68.35 and Immunization(s) administered Z23 Assessments Encounter Date Diagnosis (ICD Code) Assessment Notes Treat ment Notes Treatment Clinical Notes 01/10/2024 Essential hypertension (ICD-10 - I10) well controlled on current regimen 01/10/2024 Medicare annual wellness visit, subsequent (ICD-10 - Z00.00) Wellness for age reviewed, recommend repeat DEXA with next Mammogram. Flu vaccination today and encouraged additional at local pharmacy as her insurance will not cover them in our office. 01/10/2024 Other and unspecified hyperlipidemia (ICD-10 - E78.5) continue statin therapy 01/10/2024 Episodic atrial fibrillation (ICD-10 - I48.0) well controlled on amiodarone 01/10/2024 Chronic insomnia (ICD-10 - F51.04) Stop trazodone, increase abilify as noted 01/10/2024 Vitamin D deficiency (ICD-10 - E55.9) Continue replacements 01/10/2024 Vitamin B12 deficiency (ICD-10 - E53.8) 01/10/2024 Arthralgia of multiple joints (ICD-10 - M25.50) Continue Tylenol, topical diclofenac. 01/10/2024 DDD (degenerative disc disease), lumbosacral (ICD-10 - M51.37) Discussed use of Tylenol as needed. Avoid NSAIDs because of manta coagulation. Continue topicals, heat, we discussed the importance of stretching. Continue FU with Pain management 01/10/2024 Chronic major depressive disorder (ICD-10 - F32.9) Increase abilify to 10mg and take at HS 01/10/2024 BMI 35.0-35.9,adult (ICD-10 - Z68.35) encouraged continue efforts to lose weight with smaller portion sizes, activity as much as tolerated 01/10/2024 Immunization(s) administered (ICD-10 - Z23) 01/10/2024 Other Plan Of Treatment Medication Medication Name Sig Start Date Stop Date Notes traZODone 50 mg 1 -2 tab(s) orally at bedtime for sleep Abilify 5 mg 2 tabs orally once a day at bedtime Treatment Notes Assessment Notes Essential hypertension well controlled o n current regimen Other and unspecified hyperlipidemia con tinue statin therapy Episodic atrial fibrillation well contro lled on amiodarone Chronic insomnia Stop trazodone, incr ease abilify as noted Vitamin D deficiency Continue replacemen ts Arthralgia of multiple joints Continue T ylenol, topical diclofenac. DDD (degenerative disc disease), lumbosa cral Discussed use of Tylenol as needed. Avoid NSAIDs because of manta coagulation. Continue topicals, heat, we discussed the importance of stretching. Continue FU with Pain management Chronic major depressive disorder Increa se abilify to 10mg and take at HS BMI 35.0-35.9,adult encouraged continue efforts to lose weight with smaller portion sizes, activity as much as tolerated Pending Test Test Name Order Date LIPID PANEL, STANDARD (7600) 01/10/2024 COMPREHENSIVE METABOLIC PANEL (42007) MAGNESIUM (622) 01/10/2024 CBC (INCLUDES DIFF/PLT) (6399) VITAMIN B12 (927) 01/10/2024 TSH W/REFLEX TO FT4 (43767) 01/10/2024 Next Appt Details Follow Up: 6 Months, Reason: Progress Notes * Mariela BROOKS FDOB:[birth year] (73 yo F)Acc No.[id number]:01/10/2024 Progress Notes Patient:?Mariela BROOKS Provider:?MICHAEL Kyle :1950???Age:73 Y???Sex:Female D ate:01/10/2024 Address:[address] [place] [address], [place], [id number] Pcp:Bandar Zamora Subjective: * Chief Complaints: * ???1. Wellness. 2. Not sleep ing. * HPI: ???gen:? 73 yo female presents for routine 6 month FU for chronic AFIB, HTN, depression/anxiety and chronic insomnia as well as Medicare Wellness. Only pressing concern is difficulty sleeping. Difficulty both initiating and maintaining sleep. Afraid to close her eyes some nights but cannot really say why. Taking abilify for depression, SSRI discontinued, and depression is controlled with some situational exacerbations. Not sure if she's taking this in the mornings or at night. Knee pain is improved overall. + falls in the past year but none in the past 6 months. She does continue to have difficulty with lower back pain and has been seeing [facility] Management with PRN use of muscle relaxers and topicals. She denies CV symptoms other than occasional palpitations. No a/w any chest pain or SOA. compliant with medications. * ROS:?ALLERGY:?Reviewed, No Symptoms Reported:?Yes.?FUNCTIONAL STATUS:?ADLS?Independent for all ADL/IADL.?RESPIRATORY:?Shortness of breath?at baseline, with exertion.?CARDIOLOGY:?no?Dizziness.?no?Chest pain.?Palpitations?yes.?no?Leg edema.?CONSTITUTIONAL:?no?Loss of appetite.?no?Fever.?no?Weakness.?DERMATOLOGY:?no?Rash.?ENDOCRINOLOGY:?no?Diabetes.?GASTROENTEROLOGY:?Reviewed, No Symptoms Reported:?Yes.?MUSCULOSKELETAL:?back pain?yes.?Joint stiffness?yes.?Joint pain?yes,?right knee.?NEUROLOGY:?See HPI?Yes.?Insomnia? yes.?PSYCHOLOGY:?Positive for?feels like chronic symptoms well controlled.?Depression?yes.?Anxiety?yes.?UROLOGY:?no?Difficulty urinating.?no?Blood in urine.?Frequent urination? yes.?Urinary incontinence? yes,?small amount, urgency, with coughing or sneezing.? * Medical History:?HTN, Hyster ectomy, Hypercholestrolemia, Anxiety/depression, Hormone replacement therapy, Cardiac murmur, Mammogram 2016 - repeated 03/12- normal, normal again 03/2020 - normal 04/13 and 05/16, Vitamin B 12 deficiency, Insomnia, Neg ECHO and Cardiac GXT 2014, Atrial fibrillation 2017, Normal DEXA scan 2016 - and repeat is normal in 03/2020, positive Cologuard 2023 but negative colonoscopy. * Surgical History:?hysterecto my , cholecystectomy , D and C , cardiac cath 01/2018. * Hospitalization/Major Diagno stic Procedure:?anxiety/depression - [facility] , bowel obstruction 2014. * Family History:?Father: dece ased.?Mother: .?Paternal Grand Father: .?Paternal Grand Mother: .?Maternal Grand Father: .?Maternal Grand Mother: .?Paternal uncle: .?2 son(s) - healthy. .? * Social History:?Smoking?Are you a:: nonsmoker.?Recreational drug use: no. Exercise: no. Home smoke detector use: yes. Caffeine: yes, 1 cup coffee daily; tea daily. Living Will: Yes. Alcohol: no. Sexually active: no. Travel outside [place]: no. Occupation: disabled. Lives with spouse. * Medications:?Taking spironol actone 25 mg tablet 1 tab(s) orally once a day , Taking aspirin 81 mg enteric coated tablet 1 tab(s) orally once a day , Taking Calcium 600+D 600 mg-800 intl units tablet 1 tab(s) orally 2 times a day , Taking Vitamin B12 1 tab(s) orally daily , Taking Diclofenac Sodium Topical 1% gel 2 gram applied topically 4 times a day , Taking Xarelto 20 mg Tablet TAKE 1 TABLET DAILY IN THE EVENING , Taking busPIRone 10 mg tablet 1 [...] tab(s) orally once a day , Taking Abilify 5 mg tablet 1 tab(s) orally once a day , Taking Metoprolol Tartrate 25 mg Tablet TAKE 1 TABLET TWICE A DAY , Taking methocarbamol 750 mg tablet 1 tab orally every 8 hours prn , Taking traZODone 50 mg tablet 1 -2 tab(s) orally at bedtime for sleep , Discontinued ciprofloxacin-fluocinolone otic 0.3%-0.025% solution 1 appful in each affected ear every 12 hours , Medication List reviewed and reconciled with the patient * Allergies:?Macrobid: argueta, reynaldo sea. Objective: * Vitals:?Nurse: shanta, Pain: 0, Temp: 97.8, RR: 20, HR: 72, BP: 124/72, Ht: 68, Wt: 232, BMI:35.27. * Examination: ???General Examination: ?General?Pleasant and Cooperative, NAD on RA,.?Heart:?RRR, 1/6 systolic murmur at aortic area only, no rubs or gallops.?HEENT:?unremarkable.?Lungs:?LCTAB, No wheezes, crackles or rhonchi, Good air movement,.?Abdomen:?Soft, NTND, BSNA, No organomegaly or peritoneal signs..?Neurologic Exam:?Alert and oriented x 3.?Skin:?without acute rashes.?Peripheral pulses:?normal (2+) bilaterally.?Extremities:? no clubbing, no edema, arthritic changes with herberden and chantale nodes of fingers, limited flexion right index finger.?neck? supple,, no thyromegaly,, no lymphadenopathy,, No Carotid Bruit,.?Psych?Normal Mood/Affect.? Assessment: * Assessment: 1.?Medicare annual wellness visit, subsequent - Z00.00 (Primary)???2.?Essential hypertension - I10???3.?Other and unspecified hyperlipidemia - E78.5???4.?Episodic atrial fibrillation - I48.0???5.?Chronic insomnia - F51.04???6.?Vitamin D deficiency - E55.9???7.?Vitamin B12 deficiency - E53.8???8.?Arthralgia of multiple joints - M25.50???9.?DDD (degenerative disc disease), lumbosacral - M51.37???10.?Chronic major depressive disorder - F32.9???11.?BMI 35.0-35.9,adult - Z68.35???12.?Immunization(s) administered - Z23??? Plan: * Treatment: 2.?Essential hypertension?LAB: LIPID PANEL, STANDARD (8890) ?LAB: COMPREHENSIVE METABOLIC PANEL (86815) ?LAB: MAGNESIUM (622) ?LAB: CBC (INCLUDES DIFF/PLT) (6399) ?LAB: VITAMIN B12 (927) ?LAB: TSH W/REFLEX TO FT4 (21732) Notes: well controlled on current regimen?? 3.?Other and unspecified hyp erlipidemia?LAB: LIPID PANEL, STANDARD (7600) ?LAB: COMPREHENSIVE METABOLIC PANEL (88351) ?LAB: MAGNESIUM (622) ?LAB: CBC (INCLUDES DIFF/PLT) (6399) ?LAB: VITAMIN B12 (927) ?LAB: TSH W/REFLEX TO FT4 (88798) Notes: continue statin therapy?? 4.?Episodic atrial fibrillat ion?LAB: LIPID PANEL, STANDARD (7600) ?LAB: COMPREHENSIVE METABOLIC PANEL (01590) ?LAB: MAGNESIUM (622) ?LAB: CBC (INCLUDES DIFF/PLT) (6399) ?LAB: VITAMIN B12 (927) ?LAB: TSH W/REFLEX TO FT4 (59645) Notes: well controlled on amiodarone?? 5.?Chronic insomnia? Stop traZODone tablet, 50 mg, 1 -2 tab(s), orally, at bedtime for sleep.?? Notes: Stop trazodone, increase abilify as noted?? 6.?Vitamin D deficiency?LAB: LIPID PANEL, STANDARD (7600) ?LAB: COMPREHENSIVE METABOLIC PANEL (82599) ?LAB: MAGNESIUM (622) ?LAB: CBC (INCLUDES DIFF/PLT) (6399) ?LAB: VITAMIN B12 (927) ?LAB: TSH W/REFLEX TO FT4 (57678) Notes: Continue replacements?? 7.?Vitamin B12 deficiency?LAB: LIPID PANEL, STANDARD (7600) ?LAB: COMPREHENSIVE METABOLIC PANEL (50110) ?LAB: MAGNESIUM (622) ?LAB: CBC (INCLUDES DIFF/PLT) (6399) ?LAB: VITAMIN B12 (927) ?LAB: TSH W/REFLEX TO FT4 (90428) 8.?Arthralgia of multiple edilma ints? Notes: Continue Tylenol, topical diclofenac. ?? 9.?DDD (degenerative disc di sease), lumbosacral? Notes: Discussed use of Tylenol as needed. Avoid NSAIDs because of manta coagulation. Continue topicals, heat, we discussed the importance of stretching. Continue FU with Pain management?? 10.?Chronic major depressive disorder? Increase Abilify tablet, 5 mg, 2 tabs, orally, once a day at bedtime.?? Notes: Increase abilify to 10mg and take at HS?? 11.?BMI 35.0-35.9,adult? Notes: encouraged continue efforts to lose weight with smaller portion sizes, activity as much as tolerated?? * Immunizations:? Fluzone High Dose : 0.7 mL (Dose No:1) (Route: Intramuscular) given by SULLY Calle on Left Deltoid (Immunization(s) administered) * Procedure Codes:?32763 Influ trae High Dose Vaccine >65 Years Old, G0008 ADMINISTRATION-FLU VACCINE MEDICARE ONLY, G0439 ANNUAL WELLNESS VST; PPS SUBSQT VST, G8399 PT W/DXA DOCUMENT OR ORDER, 1123F ADVANCED DIRECTIVE - HAS A LIVING WILL, G9899 Screening diagnostic,film,digital results documented and reviewed, 3017F COLORECTAL CA SCREEN DOC REV, G8417 BMI >=30 CALCUATE W/FOLLOWUP, G9717 DOC PT HAS ACTIV DX DEPR/BIPOLR D/O, G9903 Pt scrn tbco id as non user, G8752 Most recent systolic blood pressure < 140mmhg, G8754 Most recent diastolic blood pressure < 90mmhg, G9744 PATIENT NOT ELIG D/T ACTIVE DX HTN * Preventive Medicine:? ??Counseling:?Living will?has living will.?Care goal follow up plan?BMI management provided?Yes,?Exercise Counseling Provided-?Yes,?Patient received educational materials on physical activity-?Yes,?Above Normal BMI Follow-up?Giving encouragement to exercise.?Depression Screening?chronic depression, discussed.?Diet?.?Exercise?.? ??JOANNE Screening:?Falls: Future screening for fall risks?Have you had two or more falls in the past year??Yes,?Have you had any falls with injury in the past year??No.? ??Depression Screening:?PHQ 2?Feeling down depressed or hopeless?No stable on medication.? ??Immunizations:?influenza?Have you had a flu shot since the most recent December 23 ??Yes.?Pneumonia vaccine: Status for Older Adults?Are you up-to-date on your pneumonia vaccine? yes or no?Both Prevnar and Pneumovax.?Tdap?encouraged.?Shingrix encouraged.?COVID?Completed series.?RSV vaccination?Discussed, will consider.? ??Screening / Special Tests:?Mammogram?up to date.?Pap Smear?over age 65 years and hysterectomy.?Colonoscopy?neg colonoscopy 2023.?Bone mineral Density?2019, normal.?Lung Cancer Screening?Not indicated - nonsmoker.? * Follow Up:?6 Months * * Sign off status: Completed true * Provider:?MICHAEL Kyle Date:? 01/10/2024 Generated for Macie pastor/Rylie/Sanchez on:?02/12/2024 02:40 PM EDT History and Physical Notes * Examination Category Sub-Category Detail Notes General Examination HEENT: unremarkable Heart: RRR, 1/6 systolic mu rmur at aortic area only, no rubs or gallops Lungs: LCTAB, No wheezes, c rackles or rhonchi, Good air movement, Abdomen: Soft, NTND, BSNA, No organomegaly or peritoneal signs. Extremities: no clubbing, no jarek a, arthritic changes with herberden and chantale nodes of fingers, limited flexion right index finger Skin: without acute rashes Neurologic Exam: Alert and oriented x 3 Peripheral pulses: normal (2+) bilatera lly neck supple,, no thyromeg rahul,, no lymphadenopathy,, No Carotid Bruit, General Pleasant and Coopera tive, NAD on RA, Psych Normal Mood/Affect
--- OUTSIDE RECORDS SUMMARY | 2024-02-12 14:41 | XMS_ITS ---
Author Organization [facility] Address [address] [place] [address] Care Team Providers Care Access Analyst Name Role Phone NoahBandar Primary Care Provider Rajni Davila [phone] REASON FOR VISIT refill Medications Medication SIG (Take, Route, Frequency, Duration) Notes Start Date End Date Status Xarelto 20 mg 1 tab orally once a day for 90 days Active spironolactone 25 mg 1 tab(s) orally onc e a day for 90 days Active busPIRone 10 mg 1 tab(s) orally 2 ti mes a day for 90 days Active Crestor 5 mg 1 tab(s) orally once a day (at bedtime) for 90 days Active amiodarone 100 mg 1 tab(s) orally once a day for 90 days Active losartan 50 mg 1 tab(s) orally once a day for 90 days Active hydroCHLOROthiazide 12.5 mg 1 cap(s) ora lly once a day for 90 days Active Encounters Encounter Location Date Provider Diagnosis [facility] [address] [address] 01/16/2024 Rajni Davila Plan Of Treatment Medication Medication Name Sig Start Date Stop Date Notes Xarelto 20 mg 1 tab orally once a day for 90 days spironolactone 25 mg 1 tab(s) orally onc e a day for 90 days busPIRone 10 mg 1 tab(s) orally 2 ti mes a day for 90 days Crestor 5 mg 1 tab(s) orally once a day (at bedtime) for 90 days amiodarone 100 mg 1 tab(s) orally once a day for 90 days losartan 50 mg 1 tab(s) orally once a day for 90 days hydroCHLOROthiazide 12.5 mg 1 cap(s) ora lly once a day for 90 days Progress Notes * Mariela BROOKS FDOB:[birth year] (73 yo F)Acc No.[id number]:01/16/2024 Patient:?Mariela BROOKS :1950???Age:73 Y???Sex:Female Address:[address] [place] [address], [place] [address] * Refills? Refill spironolactone tablet, 25 mg, orally, 90, 1 tab(s), once a day, 90 days, Refills=2 Refill Xarelto Tablet, 20 mg, orally, 90 Tablet, 1 tab, once a day, 90 days, Refills=2 Refill busPIRone tablet, 10 mg, orally, 180, 1 tab(s), 2 times a day, 90 days, Refills=2 Refill Crestor tablet, 5 mg, orally, 90, 1 tab(s), once a day (at bedtime), 90 days, Refills=2 Refill losartan tablet, 50 mg, orally, 90, 1 tab(s), once a day, 90 days, Refills=2 Refill hydroCHLOROthiazide capsule, 12.5 mg, orally, 90, 1 cap(s), once a day, 90 days, Refills=2 Refill amiodarone tablet, 100 mg, orally, 90, 1 tab(s), once a day, 90 days, Refills=2 * true * Date:? Generated for Macie pastor/Rylie/Sanchez on:?02/12/2024 02:40 PM EDT
[2024-02-12 15:14] VITALS: BP 138/60; PULSE 66; RESP 18; O2SAT 95; BMI 32.2
--- NOTE | 2024-02-12 15:18 | EXP.PAIN.SOA ---
[facility] Disclaimer: The information contained in this section may have been updated after the patient was seen, as this information can be updated by other users. Medical History Heart murmur Surgical History History of cholecystectomy History of hysterectomy Family History Other Family history of acute heart failure Social History Smoking Status: Never smoker second hand exposure: No alcohol intake: never substance use type: denies use current occupational status: other Travel in the last 8 weeks: None household members: spouse housing: house current occupational exposures/hazards: No caffeine: Yes PM Subjective & Objective Subjective Subjective:: Patient is a pleasant 73-year-old female who presents today for worsening pain. She rates her pain today a 10 out of 10. She states her pain is all in her buttocks area and started about a week or so ago. Patient denies any specific trauma or injury that initially led to her symptoms. She did just have a caudal epidural steroid injection on 01/30/2024. She states that this did significantly help of at least 50% however then this new pain started. Patient does state that it feels different. She has a lot of aching, throbbing sensations and states it is worse when she is laying down in bed and puts pressure on this area. Patient states that she frequently tosses [id number] due to the worsening pain and has yet to had any improvement. Patient states she has been using a heating pad that does help temporarily. Patient has previously been prescribed baclofen 5 mg 3 times daily with a 2-week supply of this medication. Patient does state that she felt like it did help however she is out of this medication. Her Roque has been reviewed and is appropriate. Review of Systems: General: No recent weight changes, no fever, no sleep disturbances Respiratory: No cough, no shortness of air, no recurring pulmonary infections Cardiovascular/peripheral vascular: No chest pain, no palpitations, no edema, no shortness of breath Gastrointestinal: No new onset incontinence, normal bowel movements reported Genitourinary: No new onset incontinence Musculoskeletal: Buttocks pain/hip pain Psychiatric: [Normal mood/affect] Neurological: [Denies weakness in extremities], [denies balance issues] Pain at rest (0-10 scale): 10 Objective Objective:: Physical Exam: General: Alert and oriented x3, no acute distress, pleasant and cooperative Lungs: Respirations even and unlabored, symmetrical chest expansion Eyes: PERRL Musculoskeletal: Flexion and extension of lumbar [spine] somewhat guarded secondary to pain, [antalgic gait noted] point tenderness along bilateral SIs with positive bilateral Claudy's, Zahra's, Gaenslen's, compression and distraction exam Neurological: Speech clear, no gross sensory deficit Has patient had previous pain injection?: Yes Percent improvement in pain since last injection: 50% Conservative treatment options previously tried: Home exercise plan Length of treatment: Longer than 12 weeks Meds Home Medications and Allergies Home Medications ?Medication ?Instructions ?Recorded ?Confirmed ?Type buspirone 5 mg tablet 10 mg PO BID . 11/14/19 02/12/24 History rivaroxaban 20 mg tablet 20 mg PO QPM Blood thinner #90 tabs 12/18/20 02/12/24 Rx amiodarone 100 mg tablet 100 mg PO DAILY . 02/05/21 02/12/24 History aspirin 81 mg tablet,delayed 81 mg PO DAILY . 02/05/21 02/12/24 History release hydrochlorothiazide 12.5 mg tablet See Rx Instructions .Route 02/05/21 02/12/24 History .COMPLEX . losartan 50 mg tablet See Rx Instructions .Route 02/05/21 02/12/24 History .COMPLEX . rosuvastatin 5 mg tablet 5 mg PO QHS . 02/05/21 02/12/24 History acetaminophen 325 mg capsule 325 mg PO QID PRN Pain 01/24/23 02/12/24 History (Tylenol) metoprolol tartrate 25 mg tablet 25 mg PO BID . 01/24/23 02/12/24 History multivitamin-ferrous 1 tab PO DAILY 01/24/23 02/12/24 History fumarate-folic acid 18 mg-400 mcg tablet (Centrum Complete) trazodone 50 mg tablet 50 mg PO DAILY 01/24/23 02/12/24 History spironolactone 25 mg tablet See Rx Instructions .Route 02/23/23 02/12/24 Rx .COMPLEX #90 tabs baclofen 5 mg tablet 5 mg PO TID PRN muscle spasm #42 11/22/23 02/12/24 Rx tabs methocarbamol 750 mg tablet 750 mg PO Q8HP PRN Pain 11/22/23 02/12/24 History New Prescriptions to Start Prescriptions: Allergies Allergy/AdvReac Type Severity Reaction Status Date / Time No Known Allergies Allergy Verified 01/15/24 14:05 Assessment and Plan *Assessment and plan (1) Bilateral sacroiliitis: Status: Acute Category: Medical Code(s): M46.1 - Sacroiliitis, not elsewhere classified Plan AndPatient did have point tenderness along her bilateral SIs and a positive bilateral Claudy's during today's exam. I did discuss with patient that she may benefit from traction however at this time she would like to wait. I will refill the patient's baclofen and provide a 1 month supply of this medication. I will also send in a 5-day dose of prednisone 20 mg twice daily and also send in an order of lidocaine patches. Patient will return to clinic in 2 weeks for reevaluation of symptoms and plan of care. Patient has been instructed to contact the clinic with any concerns before the next appointment. Dr. Berry has reviewed this note and agrees with this plan of care. This note was dictated using voice recognition software and make contain errors or omissions. All injections are used with Lidocaine or Bupivacaine and Depo Medrol.
== END 2024-02-12 23:59 | disposition home or self-care (01) ==
PROVIDERS: PCP Internal Medicine Adolescent Medicine; Visit Provider Nurse Practitioner Family
DX: M46.1 Sacroiliitis, not elsewhere classified (principal)
CPT/HCPCS: 99212; G0463

== ENCOUNTER 2024-02-14 20:20 | Emergency (ER) | payer MEDICARE, OTHER, SELFPAY ==
[2024-02-14 20:20] VITALS: BP 118/76; PULSE 75; RESP 18; TEMP 36.6; O2SAT 98; BMI 32.5
--- NOTE | 2024-02-14 20:31 | XR_ITS ---
PROCEDURE INFORMATION: Exam: XR Chest Exam date and time: 02/14/2024 9:23 PM Age: 73 years old Clinical indication: Pain; Chest pressure; Additional info: Chest pain, SOA TECHNIQUE: Imaging protocol: Radiologic exam of the chest. Views: 1 view. Total images: 1 COMPARISON: CR XR CHEST 2V 08/02/2023 12:13 PM FINDINGS: Tubes, catheters and devices: EKG leads are present. Lungs: Fine linear left basilar scarring. Lungs are otherwise clear and well expanded. No airspace consolidation or vascular congestion. Pleural spaces: Unremarkable. No pleural effusion. No pneumothorax. Heart/Mediastinum: Unremarkable. No cardiomegaly. No mediastinal widening or hilar enlargement. Vasculature: Mildly tortuous descending thoracic aorta. Bones/joints: Osteopenia. Partially visualized mild degenerative changes thoracic spine and both shoulders. IMPRESSION: No radiographically acute cardiopulmonary process.
[2024-02-14] MEDS: ASPIRIN 81MG CHEWABLE TABLET 324 MG PO (20:39)
[2024-02-14] MEDS: ALUMINUM/MAGNESIUM/SIMETHICONE 30ML UDC 30 ML PO (20:39)
[2024-02-14 20:41] LABS: Basophils # 0.1 K/mm3 (0-0.2); Basophils % 0.6 % (0.1-2.0); Eosinophils # 0.1 K/mm3 (0.0-0.4); Eosinophils % 0.5 % (0.1-12.0); Hematocrit 43.6 % (37.0-47.0); Hemoglobin 15.2 g/dL (12.2-16.2); Lymphocytes # 1.9 K/mm3 (0.7-4.5); Lymphocytes % 14.6 % (10-50); Mean Corpuscular HGB Conc 34.9 g/dL (31.8-35.4); Mean Corpuscular Hemoglobin 31.1 pg (27.0-31.2); Mean Platelet Volume 8.9 fl (7.4-10.4); Monocytes # 0.5 K/mm3 (0.1-1.0); Neutrophils # 10.4 K/mm3 (1.8-7.8); Neutrophils % 80.2 % (37.0-80.0); Platelet Count 247 K/mm3 (142-424); Red Blood Count 4.91 M/mm3 (4.20-5.40); Red Cell Distribution Width 14.1 % (11.5-17.5); White Blood Count 12.9 K/mm3 (4.8-10.8)
--- NOTE | 2024-02-14 20:44 | HMH.EDCP ---
Discharge Plan Disposition Patient Disposition: Home, Self-Care Chief Complaint: Chest Pain Prescriptions Prescriptions: No Action buspirone 5 mg tablet 10 mg PO BID rivaroxaban 20 mg tablet 20 mg PO QPM Qty: 90 3RF trazodone 50 mg tablet 50 mg PO DAILY acetaminophen [Tylenol] 325 mg capsule 325 mg PO QID PRN (Reason: Pain) Centrum Complete 18-400 mg-mcg tablet 1 tab PO DAILY spironolactone 25 mg tablet See Rx Instructions .ROUTE .COMPLEX Qty: 90 3RF Dose Instruction: TAKE 1 TABLET DAILY Rx Instructions: TAKE 1 TABLET DAILY methocarbamol 750 mg tablet 750 mg PO Q8HP PRN (Reason: Pain) Patient Comments: TAKE 1 TABLET BY MOUTH EVERY 8 HOURS NEEDED FOR 15 DAYS losartan 50 MG tablet See Rx Instructions .Route .COMPLEX Rx Instructions: TAKE 1 TABLET DAILY aspirin 81 MG tablet,delayed release (DR/EC) 81 mg PO DAILY rosuvastatin 5 MG tablet 5 mg PO QHS amiodarone 100 MG tablet 100 mg PO DAILY hydrochlorothiazide 12.5 MG tablet See Rx Instructions .Route .COMPLEX Rx Instructions: TAKE 1 TABLET DAILY metoprolol tartrate 25 mg tablet 25 mg PO BID prednisone 20 mg tablet 20 mg PO BID Qty: 10 0RF Rx Instructions: Take one tablet in the morning and one tablet in afternoon for 5 days lidocaine 4 % adhesive patch,medicated 1 patch topical DAILY PRN (Reason: pain) Qty: 10 0RF baclofen 5 mg tablet 5 mg PO TID PRN (Reason: muscle spasm) Qty: 90 0RF Referrals Follow up/Referrals: Bandar Zamora MD [Primary Care Provider] - See instructions Activity Restrictions/Add. Instructions Additional Instructions/Restrictions: Call your family doctor to establish care for this visit to the emergency department and schedule follow-up within 48 hours to ensure improvement. If you have any worsening of your condition or any other concerning signs or symptoms, return to the emergency department or your primary care doctor for further evaluation. Also call cardiology to follow-up for further cardiac evaluation. Clinical Impressions Clinical Impression: Chest pain Print Language Print Language: French Discharge ED Provider: Jah Holman General Chief Complaint: Chest Pain Stated Complaint: chest pain Time Seen by Provider: 02/14/24 20:25 Mode of Arrival: Wheelchair Source of Information: Patient Limitations: No Limitations Description of Symptoms (Recalled from ER Triage Doc. by RN): pt to ED via wheelchair with c/o intermittent substernal chest pain X3 days. Pt also reports having memory issues since yesterday. NIH negative. History of Present Illness HPI narrative: Please note that above description of symptoms, in this electronic medical record under categorization of recalled from ER triage doctor by RN are reflective of an initial nursing assessment, however, is not reflective of my full history and physical exam that was personally taken and clarified. Consequentially, this preceding description of symptoms, which may include the patient's categorized chief complaint in the EMR, do not reflect my personal clinical impression, and the ultimate description of history of present illness and patient stated complaints should be deferred to this section of the note. Unless stated otherwise or congruent with this section of the note, additional signs, symptoms, or incongruence should be interpreted as inaccurate with my clinical impression. Related Data Home Medications ?Medication ?Instructions ?Recorded ?Confirmed buspirone 5 mg tablet 10 mg PO BID . 11/14/19 02/12/24 amiodarone 100 mg tablet 100 mg PO DAILY . 02/05/21 02/12/24 aspirin 81 mg tablet,delayed 81 mg PO DAILY . 02/05/21 02/12/24 release hydrochlorothiazide 12.5 mg tablet See Rx Instructions .Route 02/05/21 02/12/24 .COMPLEX . losartan 50 mg tablet See Rx Instructions .Route 02/05/21 02/12/24 .COMPLEX . rosuvastatin 5 mg tablet 5 mg PO QHS . 02/05/21 02/12/24 acetaminophen 325 mg capsule 325 mg PO QID PRN Pain 01/24/23 02/12/24 (Tylenol) metoprolol tartrate 25 mg tablet 25 mg PO BID . 01/24/23 02/12/24 multivitamin-ferrous 1 tab PO DAILY 01/24/23 02/12/24 fumarate-folic acid 18 mg-400 mcg tablet (Centrum Complete) trazodone 50 mg tablet 50 mg PO DAILY 01/24/23 02/12/24 methocarbamol 750 mg tablet 750 mg PO Q8HP PRN Pain 11/22/23 02/12/24 Previous Rx's ?Medication ?Instructions ?Recorded rivaroxaban 20 mg tablet 20 mg PO QPM Blood thinner #90 tabs 12/18/20 spironolactone 25 mg tablet See Rx Instructions .Route 11/02/23 .COMPLEX #90 tabs baclofen 5 mg tablet 5 mg PO TID PRN muscle spasm #90 02/12/24 tabs lidocaine 4 % topical patch 1 patch topical DAILY PRN pain #10 02/12/24 ea prednisone 20 mg tablet 20 mg PO BID #10 tabs 02/12/24 Allergies Allergy/AdvReac Type Severity Reaction Status Date / Time No Known Allergies Allergy Verified 01/15/24 14:05 [facility] Disclaimer: The information contained in this section may have been updated after the patient was seen, as this information can be updated by other users. Medical History Heart murmur Surgical History History of cholecystectomy History of hysterectomy Family History Other Family history of acute heart failure Social History Smoking Status: Never smoker second hand exposure: No alcohol intake: never substance use type: denies use current occupational status: other Travel in the last 8 weeks: None household members: spouse housing: house current occupational exposures/hazards: No caffeine: Yes Other Medical History Have you received the Flu Vaccine for this season: No Have you received the Pneumonia Vaccine: Yes ROS Obtained: Yes All systems reviewed & no additional complaints except as documented Physical Exam General General appearance: alert, in no apparent distress and obese Neck Neck exam: Present trachea midline Chest Chest inspection: Present normal inspection and symmetric chest wall rise Respiratory Respiratory exam: Present normal lung sounds bilaterally; Absent respiratory distress, wheezes, stridor, accessory muscle use or prolonged expiratory phase Cardiovascular Cardiovascular exam: Present regular rate, normal rhythm and other (Pulses equal and symmetric in upper and lower extremities) Extremities Exam Extremities exam: Absent edema Neurological Exam Neurological exam: Present alert, oriented X3 and CN II-XII intact Skin Skin exam: Present warm and dry; Absent cyanosis, diaphoresis or pallor HEART Score HEART Score HEART Score assessment performed?: Yes History (anamnesis): Slightly suspicious ECG: Non-specific disturbance Age: >65 years Risk factors: 3 or more risk factors Troponin: </= normal limit HEART Score: 5 Critical Care Critical Care Time Critical Care Time: No Medical Decision Making Medical Records Medical records reviewed: Yes I reviewed the patient's medical records. Roque Inquiry Pt receiving controlled substance: No Roque was queried for this patient: No Vital Signs Vital Signs: 02/14/24 20:20 Temperature 97.9 F Temperature Source Oral Pulse Rate [Apical] 75 Respiratory Rate 18 Blood Pressure [Right Arm] 118/76 Blood Pressure Mean [Right Arm] 90 Blood Pressure Source [Right Arm] Automatic Cuff Blood Pressure Position [Right Arm] Sitting 02 Sat by Pulse Oximetry 98 Oxygen Delivery Method Room Air Lab Data Labs: Lab Results 02/14/24 20:20: WBC 12.9 H, RBC 4.91, Hgb 15.2, Hct 43.6, MCV 89.0, MCH 31.1, MCHC 34.9, RDW 14.1, Plt Count 247, MPV 8.9, Neut % (Auto) 80.2 H, Lymph % (Auto) 14.6, Douglas % (Auto) 4.0, Eos % (Auto) 0.5, Baso % (Auto) 0.6, Neut # (Auto) 10.4 H, Lymph # (Auto) 1.9, Douglas # (Auto) 0.5, Eos # (Auto) 0.1, Baso # (Auto) 0.1, PT 10.5, INR 0.93, APTT 27.3, Sodium 135 L, Potassium 3.2 L, Chloride 99, Carbon Dioxide 27, Anion Gap 12.2, BUN 19 H, Creatinine 1.30 H, Estimated Creat Clear 61, Estimated GFR 40 L, Est GFR ( Amer) 49 L, Glucose 96, Calcium 9.8, Total Bilirubin 0.6, AST 33, ALT 20, Alkaline Phosphatase 126, Troponin I < 0.01, NT-Pro-B Natriuret Pep 263 H, Total Protein 7.3, Albumin 4.4, Globulin 2.9, Albumin/Globulin Ratio 1.5, Lipase 75, HIV 1&2 Antibody Rapid Nonreactive 02/14/24 20:20 02/14/24 20:20 Response Orders (Tests/Meds): ED MEDICATIONS Discontinued Medications Generic Name Dose Route Start Last Admin Trade Name Freq PRN Reason Stop Dose Admin Al Hydrox/Mg Hydrox/Simethicone 30 ml 02/14/24 20:31 02/14/24 20:39 Aluminum/Magnesium/Simethicone 30ml Udc PO 02/14/24 20:32 30 ml ONCE ONE Administration Aspirin 324 mg 02/14/24 20:31 02/14/24 20:39 Aspirin 81mg Chewable Tablet PO 02/14/24 20:32 324 mg ONCE ONE Administration Hydroxyzine Pamoate 25 mg 02/14/24 20:46 02/14/24 20:48 Hydroxyzine Pamoate 25mg Capsule PO 02/14/24 20:47 25 mg ONCE ONE Administration ORDERS Category Date Time Status XR chest portable Stat Exams 02/14/24 20:31 Taken Complete Blood Count Auto Diff Stat Lab 02/14/24 20:20 Completed Comprehensive Metabolic Panel Stat Lab 02/14/24 20:20 Completed HIV (1&2) Antibody Rapid Stat Lab 02/14/24 20:20 Completed Hep C Ab with Reflex to RNA Stat Lab 02/14/24 20:20 Received Lipase Stat Lab 02/14/24 20:20 Completed NT Pro Brain Natriuretic Pep. Stat Lab 02/14/24 20:20 Completed PT INR [Prothrombin Time INR] Stat Lab 02/14/24 20:20 Completed PTT [Activated Partial Thrombo Time] Stat Lab 02/14/24 20:20 Completed Troponin I Q3H Lab 02/14/24 23:45 Ordered Troponin I Q3H Lab 02/15/24 02:45 Ordered Troponin I Stat Lab 02/14/24 20:20 Completed MDM Narrative Medical Decision Narrative: 73-year-old female with history of chronic back pain, hypertension, hyperlipidemia, A-fib on Xarelto presenting with chest pain. Patient states that chest pain started earlier today. She was doing nothing in particular, is right after she ate. Epigastric/substernal, does not radiate. Associated with shortness of breath, patient states she is chronically short of breath and is no different than usual. Not positional, no associated vomiting, diaphoresis, syncope, or any other concerns. States that she is most concerned because she went to see pain management 2 days prior to this, started a new pain medication and has not felt right since. She has not taken that medication in 2 days, however. History was obtained via conversation with patient. On arrival, patient hemodynamically stable, alert, oriented x4, appropriate, GCS 15, moving all extremities spontaneously, pupils equal and reactive to light. Full physical exam performed and significant for obese female no acute distress. Speaking in full sentences, saturating appropriately on room air. Normotensive, nontachycardic. Very well-appearing overall. Lungs clear to auscultation anterior and posterior bilaterally. Cardiac exam within normal limits. No lower extremity edema. Differential includes PUD, GERD, gastritis, ACS, NC, pancreatitis, anxiety, panic, among others. Patient was given aspirin, Maalox for symptomatic management and correction of underlying abnormalities. Patient placed on continuous cardiac monitoring and continuous pulse ox with initial blood pressure 118/76, heart rate 75, saturation 98% on room air. Independent interpretation of EKG shows sinus rhythm 75 beats a minute no ST or T wave changes concerning for acute ischemia. Intervals within normal limits. Workup independently interpreted and significant for mild leukocytosis 12.9 with neutrophilia. Patient's coags normal. Mild hypokalemia, this was repleted. On independent interpretation of imaging, no acute intrathoracic abnormality. See radiology read for full review of final results. Heart score 5. Because patient's pain started multiple hours prior to this visit, delta troponin not deemed necessary. On reevaluation, patient feeling anxious, 25 Vistaril was given. Given patient presentation, workup, history, this most likely represents anxiety versus GERD, could be cardiac chest pain, but no acute ischemia today. This was relayed to patient. It was recommended that she follow-up with her family doctor and cafeteria or lunchroom checker closely and she voiced her understanding. Because patient at baseline without signs or symptoms of clinical decompensation, deemed appropriate for discharge. Results were relayed to patient who voiced understanding and were agreeable to outpatient management and follow up. I discussed my clinical impression with patient and answered all questions. At this time, the evidence for any other entities in the differential is insufficient to warrant any further testing or ED observation. This was explained as well. Advisory was given that persistent or worsening symptoms require further evaluation. I confirmed the understanding of this discussion. Flue Cleaner disclaimer Much of this encounter note is an electronic tube molder fiberglass spoken language to printed text. Electronic tube molder fiberglass of the spoken language may permit errors. Although I have reviewed the note, some errors may still exist.
--- OUTSIDE RECORDS SUMMARY | 2024-02-14 20:47 | XMS_ITS ---
Author Organization [facility] PE D MAL Address [address] [place] [address] Care Team Providers Care Fireworks Display Specialist Name Role Phone NoahBandar Primary Care Provider [phone] Rajni Davila [phone] REASON FOR VISIT refill Medications Medication SIG [...] Active Encounters Encounter Location Date Provider Diagnosis [facility] [address] [address] 01/16/2024 Rajni Davila Plan Of Treatment Medication [...] Mariela BROOKS FDOB:[birth year] (73 yo F)Acc No.[id number]:01/16/2024 Patient:?Mariela BROOKS :1950???Age:73 Y???Sex:Female Address:[address] [place] [address], [place] [address] * Refills? Refill spironolactone tablet, 25 mg, [...] true * Date:? Generated for Macie pastor/Rylie/Sanchez on:?02/14/2024 08:47 PM EDT
--- OUTSIDE RECORDS SUMMARY | 2024-02-14 20:47 | XMS_ITS ---
Author Organization [facility] PE D MAL Address [address] [place] [address] Care Team Providers Care Ordnance Mechanic Name Role Phone Bandar Zamora Primary Care Provider Rajni Polanco Unavailable [phone] Allergies Allergen (clinical drug ingredient) Drug/Non Drug [...] 02/02/2024 Encounters Encounter Location Date Provider Diagnosis [address] [address] 02/02/2024 Rajni Polanco Viral URI with cough [...] Mariela BROOKS FDOB:[birth year] (73 yo F)Acc No.[id number]:02/02/2024 Progress Notes Patient:?Mariela BROOKS Provider:?CLAUDE Lunsford :1950???Age:73 Y???Sex:Female D ate:02/02/2024 Address:[address] [place] [address], [place], [id number] Pcp:Bandar Zamora Subjective: * Chief Complaints: * [...] Provider:?CLAUDE Lunsford Date:?02/2024 Generated for Printi ng/Faxing/eTransmitting on:?02/14/2024 08:47 PM EDT History and Physical Notes * [...]
--- OUTSIDE RECORDS SUMMARY | 2024-02-14 20:47 | XMS_ITS ---
Author Organization [facility] PE D [facility] Address [address] [place] [address] Care Team Providers Care Wet Machine Tender Name Role Phone Noah Bandar Primary Care Provider Rajni Davila [phone] Allergies Allergen (clinical drug ingredient) Drug/Non Drug [...] Problem Status W/U Status Risk Notes Problem [id number] Chronic major depressive disorder (F32.9) Active confirmed Vital Signs Temperature 97.8 degrees Fahrenheit 01/10/20 24 Heart Rate 72 /min 01/10/2024 Blood pressure systolic 124 mm Hg 01/10/20 24 Blood pressure diastolic 72 mm Hg 024 Height 68 in 01/10/2024 Weight 232 lbs 01/10/2024 BMI 35.27 kg/m2 01/10/2024 Encounters Encounter Location Date Provider Diagnosis [address] [address] 01/10/2024 Rajni Davila Essential hypertensi on I10 [...] PANEL, STANDARD (7600) 01/10/2024 COMPREHENSIVE METABOLIC PANEL (85799) MAGNESIUM (622) 01/10/2024 CBC (INCLUDES DIFF/PLT) (6399) VITAMIN B12 (927) 01/10/2024 TSH W/REFLEX TO FT4 (50920) 01/10/2024 Next Appt Details Follow Up: 6 Months, Reason: Progress Notes * Mariela BROOKS FDOB:[birth year] (73 yo F)Acc No.[id number]:01/10/2024 Progress Notes Patient:?Mariela BROOKS Provider:?MICHAEL Kyle :1950???Age:73 Y???Sex:Female D ate:01/10/2024 Address:[address] [place] [address], [place], [id number] Pcp:Bandar Zamora Subjective: * Chief Complaints: * [...] lower back pain and has been seeing [facility] with PRN use of muscle [...] * Treatment: 2.?Essential hypertension?LAB: LIPID PANEL, STANDARD (0790) ?LAB: COMPREHENSIVE METABOLIC PANEL (67565) ?LAB: MAGNESIUM (622) ?LAB: CBC (INCLUDES DIFF/PLT) (6399) ?LAB: VITAMIN B12 (927) ?LAB: TSH W/REFLEX TO FT4 (16354) Notes: well controlled on current regimen?? 3.?Other and unspecified hyp erlipidemia?LAB: LIPID PANEL, STANDARD (7600) ?LAB: COMPREHENSIVE METABOLIC PANEL (71561) ?LAB: MAGNESIUM (622) ?LAB: CBC (INCLUDES DIFF/PLT) (6399) ?LAB: VITAMIN B12 (927) ?LAB: TSH W/REFLEX TO FT4 (68835) Notes: continue statin therapy?? 4.?Episodic atrial fibrillat ion?LAB: LIPID PANEL, STANDARD (7600) ?LAB: COMPREHENSIVE METABOLIC PANEL (46450) ?LAB: MAGNESIUM (622) ?LAB: CBC (INCLUDES DIFF/PLT) (6399) ?LAB: VITAMIN B12 (927) ?LAB: TSH W/REFLEX TO FT4 (47057) Notes: well controlled on amiodarone?? 5.?Chronic insomnia? Stop traZODone tablet, 50 mg, 1 -2 tab(s), orally, at bedtime for sleep.?? Notes: Stop trazodone, increase abilify as noted?? 6.?Vitamin D deficiency?LAB: LIPID PANEL, STANDARD (7600) ?LAB: COMPREHENSIVE METABOLIC PANEL (61571) ?LAB: MAGNESIUM (622) ?LAB: CBC (INCLUDES DIFF/PLT) (6399) ?LAB: VITAMIN B12 (927) ?LAB: TSH W/REFLEX TO FT4 (96545) Notes: Continue replacements?? 7.?Vitamin B12 deficiency?LAB: LIPID PANEL, STANDARD (7600) ?LAB: COMPREHENSIVE METABOLIC PANEL (85748) ?LAB: MAGNESIUM (622) ?LAB: CBC (INCLUDES DIFF/PLT) (6399) ?LAB: VITAMIN B12 (927) ?LAB: TSH W/REFLEX TO FT4 (46548) 8.?Arthralgia of multiple edilma ints? Notes: Continue [...] on Left Deltoid (Immunization(s) administered) * Procedure Codes:?23301 Influ trae High Dose Vaccine >65 Years [...] Kyle Date:? 01/10/2024 Generated for Macie pastor/Rylie/Sanchez on:?02/14/2024 08:47 PM EDT History and Physical [...]
[2024-02-14 20:48] LABS: Activated Partial Thrombo Time 27.3 seconds (22.8-30.6)
[2024-02-14] MEDS: hydrOXYzine pamoate 25MG CAPSULE 25 MG PO (20:48)
--- OUTSIDE RECORDS SUMMARY | 2024-02-14 20:48 | XMS_ITS | Patient Health Record ---
Author Organization [facility] Address [address] [place] [address] Care Team Providers Care Erp Business Analyst Name Role Phone Bandar Zamora Primary Care Provider [phone] Rajni Davila Unavailable [phone] Mojgan Sumner Unavailable [phone] Rajni Polanco Unavailable [phone] Allergies Allergen (clinical drug ingredient) Drug/Non Drug Allergy documented on EMR Reaction Allergy Type Onset Date Status Macrobid argueta, nausea Drug Allergy Active Medications Medication SIG (Take, Route, Frequency, Duration) Notes Start Date End Date Status aspirin 81 mg 1 tab(s) orally once a day Active Calcium 600+D 600 mg-800 int l [...] 8 hours prn for 15 days Active Abilify 5 mg 2 tabs [...] once a day for 90 days Active busPIRone 10 mg 1 tab(s) orally 2 times a day for 90 days Active Crestor 5 mg 1 tab(s) orally once a day (at bedtime) for 90 days Active losartan 50 mg 1 tab(s) orally once a day for 90 days Active hydroCHLOROthiazide 12.5 mg 1 cap(s) ora lly once a day for 90 days Active amiodarone 100 mg 1 tab(s) orally once a day for 90 days Active Immunizations Vaccine Route Administration Date Status Comme nts Covid Pfizer IM Intramuscular 01/25/2023 Administered Fluvirin (MEDICARE ONLY) IM Intramuscular 03/01/2016 Admin istered Fluvirin--Influenza vaccine 3+ year Unknown 01/20/2009 Administered Fluvirin--Influenza vaccine 3+ year Unknown 02/09/2010 Administered Fluvirin--Influenza vaccine 3+ year Unknown 02/08/2011 Administered Fluzone High Dose IM Intramuscular 02/14/2018 Administered Fluzone High Dose IM Intramuscular 02/06/2019 Administered Fluzone High Dose IM Intramuscular 02/26/2020 Administered Fluzone High Dose IM Intramuscular 01/28/2021 Administered Fluzone High Dose IM Intramuscular 01/25/2023 Administered Fluzone High Dose IM Intramuscular 01/10/2024 Administered Influenza (Fluzone)--Medicare only Unknown 02/01/2012 Administered Influenza (Fluzone)--Medicare only Unknown 02/21/2013 Administered Influenza (Fluzone)--Medicare only IM Intramuscular 02/07/2017 Administered Influenza Intradermal IM Intramuscular 01/28/2014 Administ ered Influenza-Fluzone 3+years (NON-MEDICARE) IM Intramuscular 02/24/2015 Administered Pneumovax 23 IM Intramuscular 01/11/2017 Administered Prevnar PCV-13 (Pneumococcal conjugate 13) IM Intramuscular 02/14/2018 Administered ZZ Unknown 04/28/2007 Administered Problems Problem Type SNOMED Code ICD Code Onset Dates Problem Status W/U Status Risk Notes Problem [id number] Lumbago with sciatica, right side (M54.41) Active confirmed Problem 620388465 Lumbago with sciatica, left side (M54.42) Active confirmed Problem 359023185 Vitamin B12 deficiency (E53.8) Active confirmed Problem 456016747 Depression with anxiety (F41.8) Active confirmed Problem 29023397 Vitamin D defici ency (E55.9) Active confirmed Problem 34961222 Essential hypertension (I10) Active confirmed Problem 201141349 BMI 38.0-38.9,ad ult (Z68.38) Active confirmed Problem 24965193 Urge incontinenc e of urine (N39.41) Active confirmed Problem 721372968 Frequent falls (R29.6) Active confirmed Problem 432439748 Psychophysiologi sorin insomnia (F51.04) Active confirmed Problem Chronic insomnia (757605071) Chronic insomnia (F51.04) Active confirmed Problem 125061860 BMI 36.0-36.9,ad ult (Z68.36) Active confirmed Problem 87690796 DDD (degenerativ e disc disease), lumbosacral (M51.37) Active confirmed Problem 62077627 Other and unspec ified hyperlipidemia (E78.5) Active confirmed Problem 166132536 Episodic atrial fibrillation (I48.0) Active confirmed Problem 684141174 BMI 35.0-35.9,ad ult (Z68.35) Active confirmed Problem 320921604 Chronic anticoagulation (Z79.01) Active confirmed Problem 242448564 Hot flash, menop ausal (N95.1) Active confirmed Problem 56605462 Unspecified constipation (K59.00) Active confirmed Problem 461163996 Chronic major depressive disorder (F32.9) Active confirmed Vital Signs Heart Rate 68 /min 02/02/2024 Temperature 98.2 degrees Fahrenheit 02/02/2024 Blood pressure diastolic 80 mm Hg 02/02/2024 Height 68 in 02/02/2024 Blood pressure systolic 122 mm Hg 02/02/2024 Weight 230 lbs 02/02/2024 BMI 34.97 kg/m2 02/02/2024 Encounters Encounter Location Date Provider Diagnosis [facility] [address] [address] 03/24/2023 Mojgan McNees Dysuria R30.[address] [facility] [address] [address] 04/03/2023 Mojgan McNees Dysuria R30.0 and Psychophysiological insomnia F51.[address] [facility] [address] [address] 05/31/2023 Rajni Davila Essential hypertensi on I10 ; Other and unspecified hyperlipidemia E78.5 ; Depression with anxiety F41.8 ; Episodic atrial fibrillation I48.0 ; Chronic insomnia F51.04 ; Vitamin D deficiency E55.9 ; Vitamin B12 deficiency E53.8 ; Colon cancer screening Z12.11 and Arthralgia of multiple joints M25.50 [facility] [address] [address] 08/08/2023 Bandar Zamora Essential hypertensi on I10 ; Vitamin B12 deficiency E53.8 ; Vitamin D deficiency E55.9 and Depression with anxiety F41.8 [facility] [address] [address] 08/22/2023 Bandarosorio Zamora Depression with anxi ety F41.[address] [facility] [address] [address] 09/19/2023 Bandarosorio Zamora Depression with anxi ety F41.8 and Routine medical exam Z00.[address] [address] 09/29/2023 Mojgan McNees Lumbago with sciatic a, left side M54.42 and Lumbago with sciatica, right side M54.[address] [address] 11/01/2023 Rajni Davila Lumbago with sciatic a, left side M54.42 ; DDD (degenerative disc disease), lumbosacral M51.37 ; Lumbago with sciatica, right side M54.41 and Spinal stenosis of lumbar region without neurogenic claudication M48.[address] [facility] [address] [address] 01/10/2024 Rajni Davila Essential hypertensi on I10 [...] BMI 35.0-35.9,adult Z68.35 and Immunization(s) administered Z23 [facility] [address] [address] 02/02/2024 Rajni Polanco Viral URI with cough J06.9 [facility] [address] [place] [address] 05/16/2023 Bandar Zamora Breast cancer screen ing by mammogram Z12.31 [facility] [address] [address] 09/21/2023 Bandar Zamora Depression with anxi ety F41.8 [facility] [address] [address] 11/27/2023 Bandar Besson [facility] [address] [facility] [address] [place] [address] 12/27/2023 Bandar Besson [facility] [address] [address] 01/16/2024 Rajni Davila Assessments Encounter Date Diagnosis (ICD Code) Assessment Notes Treatment Notes Treatment Clinical Notes 03/24/2023 Dysuria (ICD-10 - R30.0) Sta rt antibiotics for presumed UTI as stated above. Will follow-up urine culture for growth and anti-microbial sensitivities. Encouraged to drink plenty of fluids & stay well hydrated. RTC if no improvement after 1-2 days of antibiotic therapy or if febrile or vomiting. 04/03/2023 Dysuria (ICD-10 - R30.0) Sta rt antibiotics for presumed UTI as stated above. Treatment based on previous cx. Will follow-up urine culture for growth and anti-microbial sensitivities. Encouraged to drink plenty of fluids & stay well hydrated. RTC if no improvement after 1-2 days of antibiotic therapy or if febrile or vomiting. 05/16/2023 Breast cancer screen ing by mammogram (ICD-10 - Z12.31) 05/31/2023 Essential hypertensi on (ICD-10 - I10) well controlled on current regimen 09/19/2023 Depression with anxi ety (ICD-10 - F41.8) Chronic, stable. Reports improvement in symptoms on abilify. Will continue at current dosage and return to clinic in 3 months or sooner if needed. 09/19/2023 Routine medical exam (ICD-10 - Z00.00) Reviewed preventative care issues: Has had colonoscopy normal in 2014 with follow-up Cologuard also normal. Normal mammogram April 2023. Normal DEXA 2022. Non-smoker. Vaccines up-to-date. No evidence of cognitive impairment with 3/3 word recall. Functional status normal. 09/21/2023 Depression with anxi ety (ICD-10 - F41.8) 09/29/2023 Lumbago with sciatic a, right side (ICD-10 - M54.41) 09/29/2023 Lumbago with sciatic a, left side (ICD-10 - M54.42) Rest, warm compresses, diclofenac gel, dexamethasone given IM, methocarbamol prn. Return precautions discussed. 02/02/2024 Viral URI with cough (ICD-10 - [...] understanding and are agreeable to this plan. 08/22/2023 Depression with anxi ety (ICD-10 - F41.8) Chronic, not at goal Significant history of depressive and anxiety symptoms, with failure on standard SSRI regimens Had some improvement in mood symptoms on Vraylar, but this medication is $96/mo and cost-prohibitive for patient Discontinue vraylar and start abilify 5 mg daily, given similar profile of this med with generic equivalent Follow up symptoms in 4 weeks. 08/08/2023 Vitamin B12 deficien cy (ICD-10 - E53.8) Significant comorbidities could be a problem with her emotional stressors. Will recheck labs. 05/31/2023 Other and unspecifie d hyperlipidemia (ICD-10 - E78.5) continue statin therapy 08/08/2023 Essential hypertensi on (ICD-10 - I10) Blood pressure is acceptable. No changes in plan 01/10/2024 Essential hypertensi on (ICD-10 - I10) well controlled on current regimen 11/01/2023 Lumbago with sciatic a, left side (ICD-10 - M54.42) 11/01/2023 DDD (degenerative di sc disease), lumbosacral (ICD-10 - M51.37) Discussed use of Tylenol as needed. Avoid NSAIDs because of manta coagulation. Continue topicals, heat, we discussed the importance of stretching. Agrees to referral back to pain management. We will repeat her dexamethasone injection today but discussed that she really should not have another one for a few months unless it is a targeted injection with pain management. 01/10/2024 Medicare annual well ness visit, subsequent (ICD-10 - Z00.00) Wellness for age reviewed, recommend repeat DEXA with next Mammogram. Flu vaccination today and encouraged additional at local pharmacy as her insurance will not cover them in our office. 11/01/2023 Lumbago with sciatic a, right side (ICD-10 - M54.41) 01/10/2024 Other and unspecifie d hyperlipidemia (ICD-10 - E78.5) continue statin therapy 08/08/2023 Vitamin D deficiency (ICD-10 - E55.9) 05/31/2023 Depression with anxi ety (ICD-10 - F41.8) continue current regimen 04/03/2023 Psychophysiological insomnia (ICD-10 - F51.04) Discussed need to avoid video/TV/computer stimulation at least 2 hours before bed. Avoid caffeine or other stimulants in the PM. Discussed appropriate night-lighting, need for consistent bedtime and routine needs. Increase trazodone to 1.5 tabs x 1 week, if insomnia persists increase to 2 tabs (100mg) 05/31/2023 Episodic atrial fibrillation (ICD-10 - I48.0) well controlled on amiodarone 08/08/2023 Depression with anxi ety (ICD-10 - F41.8) Patient has failed multiple SSRIs. Trial of Vraylar. Close follow-up in 2 to 3 weeks 01/10/2024 Episodic atrial fibrillation (ICD-10 - I48.0) well controlled on amiodarone 11/01/2023 Spinal stenosis of lumbar region without neurogenic claudication (ICD-10 - M48.061) 01/10/2024 Chronic insomnia (IC D-10 - F51.04) Stop trazodone, increase abilify as noted 05/31/2023 Chronic insomnia (IC D-10 - F51.04) Encouraged to continue trazodone, no caffeine after lunch, can try melatonin up to 10 mg as well 05/31/2023 Vitamin D deficiency (ICD-10 - E55.9) Continue replacements 01/10/2024 Vitamin D deficiency (ICD-10 - E55.9) Continue replacements 01/10/2024 Vitamin B12 deficien cy (ICD-10 - E53.8) 05/31/2023 Vitamin B12 deficien cy (ICD-10 - E53.8) 05/31/2023 Colon cancer screeni ng (ICD-10 - Z12.11) 01/10/2024 Arthralgia of multip le joints (ICD-10 - M25.50) Continue Tylenol, topical diclofenac. 01/10/2024 DDD (degenerative di sc disease), lumbosacral (ICD-10 - M51.37) Discussed use of Tylenol as needed. Avoid NSAIDs because of manta coagulation. Continue topicals, heat, we discussed the importance of stretching. Continue FU with Pain management 05/31/2023 Arthralgia of multip le joints (ICD-10 - M25.50) Continue Tylenol, topical diclofenac. Did discuss that she could use [id number] Aleve very sparingly if she had a particularly bad day. Also discussed referral back to orthopedics to discuss other options for her and arthritis, she will think about this 01/10/2024 Chronic major depres sive disorder (ICD-10 - F32.9) Increase abilify to 10mg and take at HS 01/10/2024 BMI 35.0-35.9,adult (ICD-10 - Z68.35) encouraged continue efforts to lose weight with smaller portion sizes, activity as much as tolerated 01/10/2024 Immunization(s) administered (ICD-10 - Z23) 01/10/2024 Other Plan Of Treatment Pending Test Test Name Order Date N-CBC 10/04/2011 Ultrasound : Carotids 08/29/2008 Bone Density 08/05/2010 N-TSH (Thyroid Stimulating Hormone) 09/22 N-TSH (Thyroid Stimulating Hormone) 05/25 occult blood 06/17/2008 N-CMP 10/04/2011 N-Lipid Panel 06/09/2010 N-Lipid Panel 10/04/2011 Venous Doppler : Lower Extremity 015 Ultrasound : Thyroid 01/08/2009 EKG : In House 10/29/2007 EKG : In House 05/01/2014 EKG : In House 06/24/2009 EKG : In House 01/26/2022 Echocardiogram 12/25/2014 MRI : Head, With and Without Contrast NUCLEAR MED : Thyroid Uptake Scan 2008 Physical Therapy 05/22/2015 Physical Therapy 04/05/2019 N-cmp 06/09/2010 H-VITAMIN B12 02/24/2015 H-CMP 02/24/2015 H-BUN 08/29/2008 H-CREATININE SERUM 08/29/2008 H-LIPID PANEL 02/24/2015 H-TSH 02/24/2015 H-VIT D, 25-HYDROXY 02/24/2015 C-CBC 09/20/2017 C-CMP 09/20/2017 C-LIPID PANEL 09/20/2017 C-TSH 09/20/2017 C-FREE T4 10/17/2018 C-FREE T4 09/20/2017 C-VITAMIN B12 09/03/2013 C-VITAMIN B12 09/20/2017 C-URINE CULTURE 05/01/2014 C-VITAMIN D, 25-HYDROXY 09/20/2017 X ray : Chest PA and Lateral 10/17/2018 VENIPUNCT, ROUTINE* 08/07/2015 M-Vitamin B12 03/17/2021 M-Vitamin D 25 Hydroxy 03/17/2021 M-Vitamin D 25 Hydroxy 08/26/2020 LIPID PANEL, STANDARD (7600) 11/23/2022 LIPID PANEL, STANDARD (7600) 08/08/2023 LIPID PANEL, STANDARD (7600) 01/10/2024 COMPREHENSIVE METABOLIC PANEL (75189) COMPREHENSIVE METABOLIC PANEL (86608) COMPREHENSIVE METABOLIC PANEL (76576) MAGNESIUM (622) 01/10/2024 CBC (INCLUDES DIFF/PLT) (6399) 4 CBC (INCLUDES DIFF/PLT) (6399) 3 CBC (INCLUDES DIFF/PLT) (6399) 4 VITAMIN B12/FOLATE, SERUM PANEL (7065) 0 08/08/2023 VITAMIN B12 (927) 01/10/2024 VITAMIN B12 (927) 11/23/2022 TSH W/REFLEX TO FT4 (37422) 11/23/2022 TSH W/REFLEX TO FT4 (62808) 01/10/2024 VITAMIN D,25-OH,TOTAL,IA (39975) 024 VITAMIN D,25-OH,TOTAL,IA (72196) 023 Future Test Test Name Order Date H-BMP 06/17/2014 Insurance Providers Payer Name Payer Address Payer Phone Subscriber Number Group Number Insured Name Patient Relationship to Insured Coverage Start Date Coverage End Date [employer] MED[employer]ARE [address] [address] [place] [address] [id number] Mariela Castro Self - patient is the insured [facility] CLAIMS [address] [place] [address] [id number] Dontae Castro Spouse - patient is the spouse of the insured Medications Administered Medication Instructions Date of Administration Dosage Notes Cyanocobalamin/B-12 Pt's Own Medication 01/17/2017 Cyanocobalamin/B-12 Pt's Own Medication 01/24/2017 1 mL Cyanocobalamin/B-12 Pt's Own Medication 01/31/2017 1 Cyanocobalamin/B-12 Pt's Own Medication 02/07/2017 1 mL pt supply Cyanocobalamin/B-12 Pt's Own Medication 02/15/2017 1 mg pt supply Cyanocobalamin/B-12 Pt's Own Medication 02/21/2017 1 mL pt supply Cyanocobalamin/B-12 Pt's Own Medication 02/28/2017 Cyanocobalamin/B-12 Pt's Own Medication 03/08/2017 1 mL pt supply Cyanocobalamin/B-12 Pt's Own Medication 03/14/2017 1 mL Cyanocobalamin/B-12 Pt's Own Medication 03/21/2017 Cyanocobalamin/B-12 Pt's Own Medication 03/27/2017 1 mL Cyanocobalamin/B-12 Pt's Own Medication 04/05/2017 1 mL Dexamethasone 4mg Injection 09/29/2023 4 mg Dexamethasone 4mg Injection 11/01/2023 4 mg Triamcinolone Acetonide 40mg Injection 03/27/2019 1 mL Kenalog 04/29/2015 1 mL Kenalog 06/30/2015 1 mL Medical (General) History Medical History History ICD Code HTN hysterectomy hypercholestrolemia anxiety/depression hormone replacement therapy cardiac murmur Mammogram 2017 - repeated - normal, normal again 03/2020 - normal 04/13 and 05/16 Vitamin B 12 deficiency Insomnia Neg ECHO and Cardiac GXT 2014 Atrial fibrillation 2017 Normal DEXA scan 2016 - and repeat is no rmal in 03/2020 positive Cologuard 2023 but negative col onoscopy Surgical History Surgery Date(Month/Year) hysterectomy cholecystectomy D and C cardiac cath 01/2018 Hospitalization History Reason Date(Month/Year) bowel obstruction 2014 anxiety/depression - [facility]
[2024-02-14 20:55] LABS: Albumin Level 4.4 g/dl (3.5-5.0); Chloride 99 mmol/L (98-107); Potassium 3.2 mmoL/L (3.5-5.1); Sodium 135 mmol/L (136-145)
[2024-02-14 20:58] LABS: Alanine Aminotransferase 20 U/L (12-78); Albumin/Globulin Ratio 1.5 (1.1-1.8); Alkaline Phosphatase 126 U/L (38-126); Anion Gap 12.2 mEq/L (5-15); Aspartate Amino Transferase 33 U/L (14-36); Bilirubin,Total 0.6 mg/dl (0.2-1.3); Blood Urea Nitrogen 19 mg/dl (7-17); Carbon Dioxide 27 mmol/L (22.0-30.0); Creatinine Clearance Estimated 61 mL/min (50-200); Estimated Glomerular Filt Rate 40 ml/min (>60); GFR (African American) 49 ML/MIN (>60); Globulin 2.9 g/dL (1.3-3.2); Lipase 75 U/L (23-300); Total Protein,Serum 7.3 g/dl (6.3-8.2)
[2024-02-14 20:59] LABS: Calcium 9.8 mg/dl (8.4-10.2); Glucose 96 mg/dl (74-100)
[2024-02-14 21:07] LABS: NT Pro Brain Natriuretic Pep. 263 pg/mL (0-125)
[2024-02-14 21:11] LABS: INR 0.93 (0.9-1.1); Prothrombin Time 10.5 seconds (10.1-12.5)
[2024-02-14 21:12] LABS: Troponin I < 0.01 ng/ml (0.00-0.034)
[2024-02-14 21:31] LABS: HIV (1&2) Antibody Rapid NONREACTIVE (NONREACTIVE)
[2024-02-14 22:28] VITALS: BP 147/75; PULSE 78; RESP 14; TEMP 36.6; O2SAT 96
[2024-02-16 05:56] LABS: HCV Ab Non Reactive (Non Reactive)
== END 2024-02-14 22:30 | disposition home or self-care (01) ==
PROVIDERS: Emergency Provider Emergency Medicine; PCP Internal Medicine Adolescent Medicine
DX: R07.9 Chest pain, unspecified (principal)
CPT/HCPCS: 71045; 80053; 83690; 83880; 84484; 85025; 85610; 85730; 86803; 87389; 93005; 99284

== ENCOUNTER 2024-02-22 09:58 | Outpatient (CLI) | payer MEDICARE, OTHER, SELFPAY ==
--- OUTSIDE RECORDS SUMMARY | 2024-02-22 10:01 | XMS_ITS | Patient Health Record ---
Author Organization [facility] D MAL Address [address] [place] [address] Care Team Providers Care Yeast Fermentation Attendant Name Role Phone Bandar Zamora Primary Care Provider Rajni Davila Unavailable [phone] Mojgan Sumner Unavailable [phone] Rajni Polanco Unavailable [phone] Allergies Allergen (clinical drug ingredient) Drug/Non Drug Allergy documented on EMR Reaction Allergy Type Onset Date Status Macrobid argueta, nausea Drug Allergy Active Medications Medication SIG (Take, Route, Frequency, Duration) Notes Start Date End Date Status methocarbamol 750 mg 1 tab orally every 8 hours prn for 15 days Active Metoprolol Tartrate 25 mg TAKE 1 TABLET TWICE A DAY Active loratadine 10 mg 1 tab(s) orally once a day for 30 days 02/02/2024 Active Diclofenac Sodium Topical 1% 2 gram appl ied topically 4 times a day for 30 days 01/25/2023 Active Vitamin B12 1 tab(s) orally daily Active amiodarone 100 mg 1 tab(s) orally once a day for 90 days Active Calcium 600+D 600 mg-800 int l units 1 tab(s) orally 2 times a day Active hydroCHLOROthiazide 12.5 mg 1 cap(s) ora lly once a day for 90 days Active losartan 50 mg 1 tab(s) orally once a day for 90 days Active nystatin topical 489921 units/g 1 tricia ap plied topically 3 times a day for 14 days 02/15/2024 Active aspirin 81 mg 1 tab(s) orally once a day Active Crestor 5 mg 1 tab(s) orally once a day (at bedtime) for 90 days Active busPIRone 10 mg 1 tab(s) orally 2 times a day for 90 days Active Macrobid macrocrystals-monohydrate 100 mg 1 cap(s) orally 2 times a day for 7 days 02/15/2024 Active Xarelto 20 mg 1 tab orally once a day for 90 days Active spironolactone 25 mg 1 tab(s) orally onc e a day for 90 days Active Abilify 5 mg 2 tabs orally once a day at bedtime 08/22/2023 Active Immunizations Vaccine Route Administration Date Status Comme nts Brooks Pfizer IM Intramuscular 01/25/2023 Administered Fluvirin (MEDICARE [...] Problem Status W/U Status Risk Notes Problem 368554580310335 Lumbago with sciatica, right side (M54.41) Active confirmed Problem 322727166 Lumbago with sciatica, left side (M54.42) Active confirmed Problem 143124127 Vitamin B12 deficiency (E53.8) Active confirmed Problem 187346750 Depression with anxiety (F41.8) Active confirmed Problem 94128187 Vitamin D defici ency (E55.9) Active confirmed Problem 84937048 Essential hypertension (I10) Active confirmed Problem 398662852 BMI 38.0-38.9,ad ult (Z68.38) Active confirmed Problem 75328693 Urge incontinenc e of urine (N39.41) Active confirmed Problem 474124750 Frequent falls (R29.6) Active confirmed Problem 702393537 Psychophysiologi sorin insomnia (F51.04) Active confirmed Problem Chronic insomnia (406750783) Chronic insomnia (F51.04) Active confirmed Problem 644302579 BMI 36.0-36.9,ad ult (Z68.36) Active confirmed Problem 18760302 DDD (degenerativ e disc disease), lumbosacral (M51.37) Active confirmed Problem 18072145 Other and unspec ified hyperlipidemia (E78.5) Active confirmed Problem 303719100 Episodic atrial fibrillation (I48.0) Active confirmed Problem 753547922 BMI 35.0-35.9,ad ult (Z68.35) Active confirmed Problem 712068142 Chronic anticoagulation (Z79.01) Active confirmed Problem 833875102 Hot flash, menop ausal (N95.1) Active confirmed Problem 718357988 Altered mental status, unspecified altered mental status type (R41.82) Active confirmed Problem 92667424 Unspecified constipation (K59.00) Active confirmed Problem 207201294 Chronic major depressive disorder (F32.9) Active confirmed Vital Signs Heart Rate 62 /min 02/15/2024 Temperature 97.8 degrees Fahrenheit 02/15/2024 Blood pressure diastolic 100 mm Hg 02/15/2024 Height 68 in 02/15/2024 Blood pressure systolic 142 mm Hg 02/15/2024 Weight 221 lbs 02/15/2024 BMI 33.6 kg/m2 02/15/2024 Encounters Encounter Location Date Provider Diagnosis [facility] [address] [address] 03/24/2023 Mojgan McNees Dysuria R30.[address] [place] [address] [address] 04/03/2023 Mojgan McNees Dysuria R30.0 and Psychophysiological insomnia F51.[address] [place] [address] 05/31/2023 Rajni Davila Essential hypertensi on I10 ; Other and unspecified hyperlipidemia E78.5 ; Depression with anxiety F41.8 ; Episodic atrial fibrillation I48.0 ; Chronic insomnia F51.04 ; Vitamin D deficiency E55.9 ; Vitamin B12 deficiency E53.8 ; Colon cancer screening Z12.11 and Arthralgia of multiple joints M25.[address] [address] 08/08/2023 Bandar Zamora Essential hypertensi on I10 ; Vitamin B12 deficiency E53.8 ; Vitamin D deficiency E55.9 and Depression with anxiety F41.[address] [address] 08/22/2023 Bandar Besson Depression with anxi ety F41.[address] [address] 09/19/2023 Bandar Besson Depression with anxi ety F41.8 and Routine medical exam Z00.[address] [address] 09/29/2023 Mojgan McNees Lumbago with sciatic a, left side M54.42 and Lumbago with sciatica, right side M54.[address] [address] 11/01/2023 Rajni Davila Lumbago with sciatic a, left side M54.42 ; DDD (degenerative disc disease), lumbosacral M51.37 ; Lumbago with sciatica, right side M54.41 and Spinal stenosis of lumbar region without neurogenic claudication M48.[address] [address] 01/10/2024 Rajni Davila Essential hypertensi on I10 [...] BMI 35.0-35.9,adult Z68.35 and Immunization(s) administered Z23 [facility] [address] [address] 02/02/2024 Rajni Polanco Viral URI with cough J06.9 [facility] [address] [address] 02/15/2024 Bandar Karmason Confusion R41.0 ; Cy stitis N30.90 ; Palpitations R00.2 and Tinea corporis B35.4 [facility] [address] [place] [address] 05/16/2023 Bandarosorio Zamora Breast cancer screen ing by mammogram Z12.31 [facility] [address] [address] 09/21/2023 Bandar Besson Depression with anxi ety F41.8 [facility] [address] [address] 11/27/2023 Bandar Besson [facility] [address] [place] [address] 12/27/2023 Bandar Besson [facility] [address] [address] 01/16/2024 Rajni Lola [facility] [address] [address] 02/21/2024 Rajni Lola Altered mental statu s, unspecified altered mental status type R41.82 Assessments Encounter Date Diagnosis (ICD Code) Assessment [...] - I10) well controlled on current regimen 05/31/2023 Other and unspecifie d hyperlipidemia (ICD-10 - E78.5) continue statin therapy 08/08/2023 Vitamin B12 deficien cy (ICD-10 - E53.8) Significant comorbidities could be a problem with her emotional stressors. Will recheck labs. 08/08/2023 Essential hypertensi on (ICD-10 - I10) Blood pressure is acceptable. No changes in plan 08/22/2023 Depression with anxi ety (ICD-10 - [...] equivalent Follow up symptoms in 4 weeks. 09/19/2023 Depression with anxi ety (ICD-10 - [...] given IM, methocarbamol prn. Return precautions discussed. 11/01/2023 Lumbago with sciatic a, left side [...] a targeted injection with pain management. 01/10/2024 Essential hypertensi on (ICD-10 - I10) well controlled on current regimen 01/10/2024 Medicare annual well ness visit, subsequent (ICD-10 - Z00.00) Wellness for age reviewed, recommend repeat DEXA with next Mammogram. Flu vaccination today and encouraged additional at local pharmacy as her insurance will not cover them in our office. 02/02/2024 Viral URI with cough (ICD-10 - [...] understanding and are agreeable to this plan. 02/15/2024 Cystitis (ICD-10 - N30.90) Treat with Macrobid. Culture done. I will review culture personally 02/15/2024 Confusion (ICD-10 - R41.0) Reviewed notes from ER. Plan from ER reviewed. Urinalysis was not done. White count was slightly elevated over baseline of 12,000. Urinalysis here strongly suggestive of UTI which would certainly fit her symptoms in conjunction with the newly prescribed baclofen and prednisone from the pain clinic. Treat UTI as noted below. Stop baclofen. Stop prednisone. I have asked her to cut down to 1 tablet of Abilify tonight for the next week down to 5 mg to see if this will help confusion issues also. I will see her in follow-up in 1 week. Discussed hydration 02/21/2024 Altered mental statu s, unspecified altered mental status type (ICD-10 - R41.82) 02/15/2024 Palpitations (ICD-10 - R00.2) Patient complained of some palpitations. EKG done. Sinus rhythm with some artifact but no acute changes 01/10/2024 Other and unspecifie d hyperlipidemia (ICD-10 - E78.5) continue statin therapy 08/08/2023 Vitamin D deficiency (ICD-10 - E55.9) 11/01/2023 Lumbago with sciatic a, right side (ICD-10 - M54.41) 05/31/2023 Depression with anxi ety (ICD-10 - F41.8) continue current regimen 04/03/2023 Psychophysiological insomnia (ICD-10 - F51.04) Discussed need to avoid video/TV/computer stimulation at least 2 hours before bed. Avoid caffeine or other stimulants in the PM. Discussed appropriate night-lighting, need for consistent bedtime and routine needs. Increase trazodone to 1.5 tabs x 1 week, if insomnia persists increase to 2 tabs (100mg) 08/08/2023 Depression with anxi ety (ICD-10 - F41.8) Patient has failed multiple SSRIs. Trial of Vraylar. Close follow-up in 2 to 3 weeks 05/31/2023 Episodic atrial fibrillation (ICD-10 - I48.0) well controlled on amiodarone 11/01/2023 Spinal stenosis of lumbar region without neurogenic claudication (ICD-10 - M48.061) 01/10/2024 Episodic atrial fibrillation (ICD-10 - I48.0) well controlled on amiodarone 02/15/2024 Tinea corporis (ICD- 10 - B35.4) 01/10/2024 Chronic insomnia (IC D-10 - F51.04) [...] diclofenac. Did discuss that she could use [id number] Aleve very sparingly if she had a [...] Immunization(s) administered (ICD-10 - Z23) 01/10/2024 Other 02/15/2024 Other Please note hospital records reviewed in detail Plan Of Treatment Pending Test Test Name Order Date N-CBC 10/04/2011 Ultrasound : Carotids 08/29/2008 Bone Density 08/05/2010 N-TSH (Thyroid Stimulating Hormone) 09/22 N-TSH (Thyroid Stimulating Hormone) 05/25 occult blood 06/17/2008 N-CMP 10/04/2011 N-Lipid Panel 10/04/2011 N-Lipid Panel 06/09/2010 Venous Doppler : Lower Extremity 015 Ultrasound : Thyroid 01/08/2009 EKG : In House 01/26/2022 EKG : In House 10/29/2007 EKG : In House 06/24/2009 EKG : In House 05/01/2014 Echocardiogram 12/25/2014 MRI : Head, With and Without Contrast NUCLEAR MED : Thyroid Uptake Scan 2008 Physical Therapy 05/22/2015 Physical Therapy 04/05/2019 CT Scan : Head, with/without contrast N-cmp 06/09/2010 H-VITAMIN B12 02/24/2015 H-CMP 02/24/2015 H-BUN 08/29/2008 H-CREATININE SERUM 08/29/2008 H-LIPID PANEL 02/24/2015 H-TSH 02/24/2015 H-VIT D, 25-HYDROXY 02/24/2015 C-CBC 09/20/2017 C-CMP 09/20/2017 C-LIPID PANEL 09/20/2017 C-TSH 09/20/2017 C-FREE T4 09/20/2017 C-FREE T4 10/17/2018 C-VITAMIN B12 09/20/2017 C-VITAMIN B12 09/03/2013 C-URINE CULTURE 05/01/2014 C-VITAMIN D, 25-HYDROXY 09/20/2017 X ray : Chest PA and Lateral 10/17/2018 VENIPUNCT, ROUTINE* 08/07/2015 M-Vitamin B12 03/17/2021 M-Vitamin D 25 Hydroxy 03/17/2021 M-Vitamin D 25 Hydroxy 08/26/2020 LIPID PANEL, STANDARD (7600) 11/23/2022 LIPID PANEL, STANDARD (7600) 01/10/2024 LIPID PANEL, STANDARD (7600) 08/08/2023 COMPREHENSIVE METABOLIC PANEL (64791) COMPREHENSIVE METABOLIC PANEL (95304) COMPREHENSIVE METABOLIC PANEL (78952) MAGNESIUM (622) 01/10/2024 CBC (INCLUDES DIFF/PLT) (6399) 3 CBC (INCLUDES DIFF/PLT) (6399) 4 CBC (INCLUDES DIFF/PLT) (6399) 4 VITAMIN B12/FOLATE, SERUM PANEL (7065) 0 08/08/2023 VITAMIN B12 (927) 01/10/2024 VITAMIN B12 (927) 11/23/2022 TSH W/REFLEX TO FT4 (06152) 01/10/2024 TSH W/REFLEX TO FT4 (70430) 11/23/2022 VITAMIN D,25-OH,TOTAL,IA (92305) 023 VITAMIN D,25-OH,TOTAL,IA (34211) 024 Future Test Test Name Order Date H-BMP 06/17/2014 Next Appt Details Provider Name:Bandar Zamora, 02/22/2024 03:30:00 PM, [address] [facility], [place], [address], Insurance Providers Payer Name Payer Address Payer Phone Subscriber Number Group Number Insured Name Patient Relationship to Insured Coverage Start Date Coverage End Date [employer] [address] [address] [place] [address] [phone] [id number] Mariela Castro Self - patient is the insured [employer] [address] [place] [address] [id number] Dontae Castro Spouse - patient is the [...] cardiac cath 01/2018 Hospitalization History Reason Date(Month/Year) anxiety/depression - [facility] bowel obstruction 2014
--- OUTSIDE RECORDS SUMMARY | 2024-02-22 10:01 | XMS_ITS ---
Author Organization [facility] D [facility] Address [address] [place] [address] Care Team Providers Care Mass Spectroscopist Name Role Phone Bandar Zamora Primary Care Provider Allergies Allergen (clinical drug ingredient) Drug/Non Drug Allergy documented on EMR Reaction Allergy Type Onset Date Status Macrobid argueta, nausea Drug Allergy Active Results Component Value Reference Range Notes Urinalysis Reviewed date:02/15/2024 01:44:46 PM Interpretation: Performing Lab: Notes/Report: Color/Clarity cloudy yellow Leuk small Nitrite positive Urobili 0.2 Protein trace pH 6.0 Blood negative Sp. Gr. 1.025 Ketone neg Bili neg Glucose neg CULTURE, URINE, ROUTINE (395 ) Reviewed date:02/19/2024 05:23:44 PM Interpretation: Performing Lab:[facility], [facility] [facility], [facility]qpBN[address] Jonathan Jade Notes/Report: NON-FASTING CULTURE, URINE, ROUTINE SEE NOTE CULTURE, URINE, ROUTINE Micro Number: [id number] Test Status: Final Specimen Source: Urine, clean catch Specimen Quality: Adequate Result: Greater than 100,000 CFU/mL of Escherichia coli COMMENT: Additional non-predominating organism(s) isolated. These organisms, commonly found on external and internal genitalia, are considered colonizers. No further testing performed. E.coli INT RED AMOX/CLAVULANATE I 16 AMP/SULBACTAM R >=32 CEFAZOLIN NR <=4 2 CEFEPIME S <=0.12 CEFTAZIDIME S <=1 CEFTRIAXONE S <=0.25 CIPROFLOXACIN S <=0.06 GENTAMICIN S <=1 IMIPENEM S <=0.25 LEVOFLOXACIN S <=0.12 MEROPENEM S <=0.25 NITROFURANTOIN S <=16 PIP/TAZOBACTAM S <=4 TRIMETHOPRIM/SULFA S <=20 S = Susceptible I = Intermediate R = Resistant NS = Not susceptible SDD = Susceptible Dose Dependent * = Not Tested NR = Not Reported NN = See Therapy Comments THERAPY COMMENTS Note 1: For infections other than uncomplicated UTI caused by E. coli, K. pneumoniae or P. mirabilis: Cefazolin is resistant if RED > or = 8 mcg/mL. (Distinguishing susceptible versus intermediate for isolates with RED < or = 4 mcg/mL requires additional testing.) Note 2: For uncomplicated UTI caused by E. coli, K. pneumoniae or P. mirabilis: Cefazolin is susceptible if RED <32 mcg/mL and predicts susceptible to the oral agents cefaclor, cefdinir, cefpodoxime, cefprozil, cefuroxime, cephalexin and loracarbef. REASON FOR VISIT f/u ER, not sleeping , trouble remembering Medications Medication SIG (Take, Route, Frequency, Duration) Notes Start Date End Date Status hydroCHLOROthiazide 12.5 mg 1 cap(s) ora lly once a day for 90 days Active losartan 50 mg 1 tab(s) orally once a day for 90 days Active Crestor 5 mg 1 tab(s) orally once a day (at bedtime) for 90 days Active busPIRone 10 mg 1 tab(s) orally 2 times a day for 90 days Active Xarelto 20 mg 1 tab orally once a day for 90 days Active methocarbamol 750 mg 1 tab orally every 8 hours prn for 15 days Active Metoprolol Tartrate 25 mg TAKE 1 TABLET TWICE A DAY Active Diclofenac Sodium Topical 1% 2 gram appl ied topically 4 times a day for 30 days 01/25/2023 Active spironolactone 25 mg 1 tab(s) orally onc e a day for 90 days Active Abilify 5 mg 2 tabs orally once a day at bedtime 08/22/2023 Active Vitamin B12 1 tab(s) orally daily Active Calcium 600+D 600 mg-800 int l units 1 tab(s) orally 2 times a day Active aspirin 81 mg 1 tab(s) orally once a day Active Macrobid macrocrystals-monohydrate 100 mg 1 cap(s) orally 2 times a day for 7 days 02/15/2024 Active loratadine 10 mg 1 tab(s) orally once a day for 30 days 02/02/2024 Active amiodarone 100 mg 1 tab(s) orally once a day for 90 days Active nystatin topical 592179 units/g 1 tricia ap plied topically 3 times a day for 14 days 02/15/2024 Active Vital Signs Temperature 97.8 degrees Fahrenheit 02/15/20 Temperature 97.8 degrees Fahrenheit 02/15/20 Heart Rate 62 /min 02/15/2024 Blood pressure systolic 142 mm Hg 02/15/20 Blood pressure diastolic 100 mm Hg 024 Height 68 in 02/15/2024 Weight 221 lbs 02/15/2024 BMI 33.6 kg/m2 02/15/2024 Encounters Encounter Location Date Provider Diagnosis [address] [address] 02/15/2024 Bandar Zamora Confusion R41.0 ; Cystitis N30.90 ; Palpitations R00.2 and Tinea corporis B35.4 Assessments Encounter Date Diagnosis (ICD Code) Assessment Notes Treatment Notes Treatment Clinical Notes 02/15/2024 Confusion (ICD-10 - R41.0) Reviewed notes [...] in follow-up in 1 week. Discussed hydration 02/15/2024 Cystitis (ICD-10 - N30.90) Treat with Macrobid. Culture done. I will review culture personally 02/15/2024 Palpitations (ICD-10 - R00.2) Patient complained of some palpitations. EKG done. Sinus rhythm with some artifact but no acute changes 02/15/2024 Tinea corporis (ICD-10 - B35.4) 02/15/2024 Other Please note hospital records reviewed in detail Plan Of Treatment Medication Medication Name Sig Start Date Stop Date Notes baclofen 5 mg 1 tab(s) orally 3 ti mes a day Macrobid macrocrystals-monohydrate 100 mg 1 cap(s) orally 2 times a day for 7 days 02/15/2024 predniSONE 20 mg 1 tab(s) orally once a day nystatin topical 191969 units/g 1 tricia applied topically 3 times a day for 14 days 02/15/2024 Treatment Notes Assessment Notes Confusion Reviewed notes from ER. Plan from ER [...] in follow-up in 1 week. Discussed hydration Cystitis Treat with Macrobid. Culture done. I will review culture personally Palpitations Patient complained o f some palpitations. EKG done. Sinus rhythm with some artifact but no acute changes Other Please note hospital records reviewed in detail Next Appt Details Follow Up: 1 Week,prn, Reaso n: Provider Name:Bandar Zamora, 02/22/2024 03:30:00 PM, [address], [address], Progress Notes * Mariela BROOKS FDOB:[birth year] (73 yo F)Acc No.[id number]:02/15/2024 Progress Notes Patient:?Mariela BROOKS Provider:?Bandar Zamora MD :1950???Age:73 Y???Sex:Female D ate:02/15/2024 Address:[address] [place] [address] [place], [place], [id number] Subjective: * Chief Complaints: * ???1. f/u ER. 2. Not sleepin g , trouble remembering. * HPI: ???gen:? Ms. Mccann was in the emergency department yesterday after a couple of days of confusion and problems with word finding and being able to operate her phone. She had some chest pain and the ambulance was called. She went to local emergency department. Troponins were negative, other labs were unremarkable but urinalysis was not done and she was discharged with instructions to taper down recently started baclofen that was prescribed to her by pain clinic. She is not much better. She presents for reevaluation. Her son and [id number] are concerned about a possible urinary tract infection given her history. * Medical History:?HTN, Hyster ectomy, Hypercholestrolemia, Anxiety/depression, [...] Occupation: disabled. Lives with spouse. * Medications:?Taking predniSO NE 20 mg tablet 1 tab(s) orally once a day , Taking baclofen 5 mg tablet 1 tab(s) orally 3 times a day , Taking aspirin 81 mg [...] tab(s) orally once a day , Taking loratadine 10 mg tablet 1 tab(s) orally once a day , Discontinued dextromethorphan-promethazine 15 mg-6.25 mg/5 mL syrup 5 mL orally every 6 hours , Medication List reviewed and reconciled with the patient * Allergies:?Macrobid: argueta, reynaldo sea. Objective: * Vitals:?Nurse: shanta, Pain: 0, Temp: 97.8, Temp: 97.8, RR: 20, HR: 62, BP: 142/100, Ht: 68, Wt: 221, BMI:33.6. * Examination: ???General Examination: ???Pleasant but only oriented x 2. Able to get on the exam table without assistance and ambulate without assistance. Cranial nerves are intact. Oropharynx clear. Lungs clear. Heart rate regular. Abdomen soft, nontender. No CVA tenderness. No edema noted. Skin exam reveals tinea like rash under the left breast. Assessment: * Assessment: 1.?Confusion - R41.0 (Primar y)???2.?Cystitis - N30.90???3.?Palpitations - R00.2???4.?Tinea corporis - B35.4??? Plan: * Treatment: ? Value Reference Range ?Color/Clarity cloudy yellow * ?Leuk small * ?Nitrite positive * ?Urobili 0.2 * ?Protein trace * ?pH 6.0 * ?Blood negative * ?Sp. Gr. 1.025 * ?Ketone neg * ?Bili neg * ?Glucose neg Notes: Reviewed notes from ER. Plan from ER [...] in follow-up in 1 week. Discussed hydration ?2.?Cystitis? Start Macrobid capsule, macrocrystals-monohydrate 100 mg, 1 cap(s), orally, 2 times a day, 7 days, 14, Refills 0.?LAB: CULTURE, URINE, ROUTINE (395)* ? Value Reference Range ?CULTURE SEE NOTE A - * This lab was reviewed by Irvin Zamora on 02/19/2024 at 17:23 PM EDT Notes: Treat with Macrobid. Culture done. I will review culture personally?? 3.?Palpitations? Notes: Patient complained of some palpitations. EKG done. Sinus rhythm with some artifact but no acute changes??4.?Tinea corporis? Start nystatin topical ointment, 680899 units/g, 1 tricia, applied topically, 3 times a day, 14 days, 80 gm, Refills 1.??5.?Others? Notes: Please note hospital records reviewed in detail?? * Procedure Codes:?93426 URINA LYSIS, Modifiers: QW , 1111F DSCHR MED/CURENT MED MERGE, 53786 EKG WITH INTERP. * Follow Up:?1 Week,prn * * Sign off status: Completed true * Provider:?Bandar Zamora MD Date :?02/15/2024 Generated for Macie pastor/Rylie/eTransmitting on:?02/22/2024 10:00 AM EDT
--- OUTSIDE RECORDS SUMMARY | 2024-02-22 10:01 | XMS_ITS ---
Author Organization [facility] Address [address] [place] [address] Care Team Providers Care Toddler Lead Teacher Name Role Phone Bandar Zamora Primary Care Provider REASON FOR VISIT 1 week f/u Encounters Encounter Location Date Provider Diagnosis [facility] [address] [address] 02/22/2024 Bandar Zamora Plan Of Treatment Next Appt Details Provider Name:Bandar Zamora, 02/22/2024 03:30:00 PM, [address] [place] [address], [address], Progress Notes * Mariela BROOKS FDOB:[birth year] (73 yo F)Acc No.[id number]:02/22/2024 Progress Notes Patient:?Mariela BROOKS Provider:?Bandar Zamora MD :1950???Age:73 Y???Sex:Female D ate:02/22/2024 Address:[address], [place] Subjective: * Chief Complaints: * ???1. 1 week f/u. * Medical History:? Objective: * Vitals:? Assessment: Plan: * Treatment: * * Electronic signature of Ulices Zamora MD FAAP on 02/22/2024 at 10:00 AM EDT Sign off status: Pending * Provider:?Bandar Zamora MD Date :?02/22/2024 Generated for Macie pastor/Rylie/Sanchez on:?02/22/2024 10:00 AM EDT
--- OUTSIDE RECORDS SUMMARY | 2024-02-22 10:01 | XMS_ITS ---
Author Organization [facility] D [facility] Address [address] [place] [address] Care Team Providers Care Parking Worker Name Role Phone Noah Bandar Primary Care Provider Lola Rajni Miller [phone] REASON FOR VISIT order Problems Problem Type SNOMED Code ICD Code Onset Dates Problem Status W/U Status Risk Notes Problem [id number] Altered mental status, unspecified altered mental status type (R41.82) Active confirmed Encounters Encounter Location Date Provider Diagnosis [facility] [address] [address] 02/21/2024 Rajni Davila Altered mental status, unspecified altered mental status type R41.82 Assessments Encounter Date Diagnosis (ICD Code) Assessment Notes Treat ment Notes Treatment Clinical Notes 02/21/2024 Altered mental status, unspecified altered mental status type (ICD-10 - R41.82) Plan Of Treatment Pending Test Test Name Order Date CT Scan : Head, with/without contrast Next Appt Details Provider Name:Bandar Zamora, 02/22/2024 03:30:00 PM, [address], [address], Progress Notes * Mariela BROOKS FDOB:[birth year] (73 yo F)Acc No.[id number]:02/21/2024 Patient:?Mariela BROOKS :1950???Age:73 Y???Sex:Female Address:[address], [place] [address] Subjective: * Chief Complaints: * ???Order * Medical History:? * Surgical History:? * Hospitalization/Major Diagno stic Procedure:? * Medications:? Objective: * Vitals:? * Physical Examination:? Assessment: * Assessment: 1.?Altered mental status, un specified altered mental status type - R41.82 (Primary)??? Plan: * Treatment: * Procedure Codes:? * true * Date:? Generated for Macie pastor/Rylie/eTransmitting on:?02/22/2024 10:00 AM EDT
--- NOTE | 2024-02-22 10:04 | CT_ITS ---
PROCEDURE INFORMATION: Exam: CT Head Without And With Contrast Exam date and time: 02/22/2024 10:14 AM Age: 73 years old Clinical indication: Altered mental status/memory loss; Confusion or disorientation TECHNIQUE: Imaging protocol: Computed tomography of the head without and with contrast. Radiation optimization: All CT scans at this facility use at least one of these dose optimization techniques: automated exposure control; mA and/or kV adjustment per patient size (includes targeted exams where dose is matched to clinical indication); or iterative reconstruction. Contrast material: ISOVUE 300; Contrast volume: 100 ml; Contrast route: IV; COMPARISON: MR CERVICAL SPINE WO CON 11/19/2020 2:29 PM FINDINGS: Brain: Normal. No hemorrhage. No abnormal enhancement or space occupying masses detected. No mass effect or midline shift. Cortical sulci are unremarkable for age. Cerebral ventricles: Unremarkable for age. Paranasal sinuses: Visualized sinuses are unremarkable. No fluid levels. Mastoid air cells: Visualized mastoid air cells are well aerated. Bones: Hyperostosis frontalis interna. No acute fracture. Soft tissues: Unremarkable. IMPRESSION: Unremakable contrast enhanced ct exam of the head.
[2024-02-22] MEDS: IOPAMIDOL-300 (61%) 100ML VIAL 100 ML IV (10:27)
[2024-02-22] MEDS: SODIUM CHLORIDE 0.9% 10ML SYR (RAD ONLY) 10 ML IV (10:27)
== END 2024-02-22 23:59 | disposition home or self-care (01) ==
LOC: RAD 09:59
PROVIDERS: PCP Internal Medicine Adolescent Medicine; Visit Provider Nurse Practitioner Family
DX: R41.82 Altered mental status, unspecified (principal)
CPT/HCPCS: 70470; Q9967

== ENCOUNTER 2024-03-18 09:20 | Outpatient (POV) | payer MEDICARE, OTHER, SELFPAY ==
--- OUTSIDE RECORDS SUMMARY | 2024-03-18 09:22 | XMS_ITS ---
Author Organization [facility] JONATHAN Medellin MAL Address [address] [place] [address] Care Team Providers Care Robotic Weld Technician Name Role Phone Bandar Zamora Primary Care Provider [phone] Allergies Allergen (clinical drug ingredient) Drug/Non Drug Allergy documented on EMR Reaction Allergy Type Onset Date Status Macrobid argueta, nausea Drug Allergy Active Reason For Referral Reason Please set up with p alainan management-[place] or [place]-previously benefited from facet joint shots. Diagnosis 1 Lumbar back pain (M5 4.50) Referral Organization [facility] RAMON RESENDEZ Referring Provider First Name Bandar Referring Provider Last Name Noah Referring Provider Speciality Internal M edicine General Notes Nasir Brooks 10:55:25 AM > Referral Priority Routine REASON FOR VISIT 2 week fu- back pain, UTI Medications Medication SIG (Take, Route, Frequency, Duration) Notes Start Date End Date Status aspirin 81 mg 1 tab(s) orally once a day Active Macrobid macrocrystals-monohydrate 100 mg 1 cap(s) orally 2 times a day for 10 days 03/14/2024 Active Diclofenac Sodium Topical 1% 2 gram appl ied topically 4 times a day for 30 days 01/25/2023 Active Calcium 600+D 600 mg-800 int l units 1 tab(s) orally 2 times a day Active Vitamin B12 1 tab(s) orally daily Active amiodarone 100 mg 1 tab(s) orally once a day for 90 days Active loratadine 10 mg 1 tab(s) orally once a day for 30 days 02/02/2024 Active traZODone 50 mg as directed orally a t bedtime for 30 days 02/29/2024 Active nystatin topical 270390 units/g 1 tricia ap plied topically 3 times a day for 14 days 02/15/2024 Active losartan 50 mg 1 tab(s) orally once a day for 90 days Active hydroCHLOROthiazide 12.5 mg 1 cap(s) ora lly once a day for 90 days Active spironolactone 25 mg 1 tab(s) orally onc e a day for 90 days Active Xarelto 20 mg 1 tab orally once a day for 90 days Active Crestor 5 mg 1 tab(s) orally once a day (at bedtime) for 90 days Active Metoprolol Tartrate 25 mg TAKE 1 TABLET TWICE A DAY Active Vital Signs Temperature 97.9 degrees Fahrenheit 03/14/20 24 Heart Rate 68 /min 03/14/2024 Blood pressure systolic 110 mm Hg 03/14/20 24 Blood pressure diastolic 65 mm Hg 024 Height 68 in 03/14/2024 Weight 215 lbs 03/14/2024 BMI 32.69 kg/m2 03/14/2024 Encounters Encounter Location Date Provider Diagnosis [address] [address] 03/14/2024 Bandar Zamora Sleeping difficulty G47.9 ; UTI symptoms R39.9 and Lumbar back pain M54.50 Assessments Encounter Date Diagnosis (ICD Code) Assessment Notes Treatment Notes Treatment Clinical Notes Section Notes 03/14/2024 Sleeping difficulty (ICD-10 - G47.9) - continue Trazadone, discontinue use of Abillify due to possible hypotension but showing improvement in sleep with trazadone, limited improvement with Abilify prior 03/14/2024 UTI symptoms (ICD-10 - R39.9) endorses 5 days of urinary urgency, frequency, and painful burning urination will prescribe oral course of Macrobid for UTI 03/14/2024 Lumbar back pain (ICD-10 - M54.50) Continue use of tylenol twice daily for back pain, continue heating pad daily obtain doughnut cushion and organizing follow up with interventional pain for evaluation for CSIs Plan Of Treatment Medication Medication Name Sig Start Date Stop Date Notes Macrobid macrocrystals-monohydrate 100 mg 1 cap(s) orally 2 times a day for 10 days 03/14/2024 Abilify 10 mg 1 tab(s) orally once a day at bedtime 08/22/2023 Treatment Notes Assessment Notes Sleeping difficulty - continue Trazadone , discontinue use of Abillify due to possible hypotension but showing improvement in sleep with trazadone, limited improvement with Abilify prior UTI symptoms endorses 5 days of urinary urgency, frequency, and painful burning urination will prescribe oral course of Macrobid for UTI Lumbar back pain Continue use of tylenol twice daily for back pain, continue heating pad daily obtain doughnut cushion and organizing follow up with interventional pain for evaluation for CSIs Referrals Referral Date Details 03/14/2024 03/14/2024, Please s et up with pain management-[place] or [facility]-previously benefited from facet joint shots. Next Appt Details Follow Up: prn, Reason: Progress Notes * Mariela BROOKS FDOB:[birth year] (73 yo F)Acc No.[id number]:03/14/2024 Progress Notes Patient:?Mariela BROOKS Provider:?Bandar Zamora MD :1950???Age:73 Y???Sex:Female D ate:03/14/2024 Address:[address] [place] [address], [facility], [id number] Subjective: * Chief Complaints: * ???1. 2 week fu- back pain. 2. UTI. * HPI: ???gen:? Ms. Brooks is a 73 year old female here for follow up on UTI symptoms, back pain, and lightheadedness.? 1.) Reports she continues to have 5 days of painful, burning urination and urinary urgency. Recently had course of antibiotics for UTI, discussed that this may be recurrent UTI and she is open to a course of oral macrobid. She denies fevers or chills at this time.? 2.) Continues to endorse chronic low back and buttock pain, starts centrally and radiates to both buttocks. Has tried tylenol and heating pad with minimal relief. Reports prior relief with interventional pain injections, would like to follow back up with them for reevaluation, possible repeat injection. Denies red flag symptoms such as bowel or bladder accidents or numbness/tingling in the groin area.? 3.) Reports some improvement in sleep since starting Trazadone but has to sleep in recliner due to back pain. States she feels light headed, dizzy, with leg weakness at night, fears she is having issues with low blood pressure. Denies lossof consciousness or falls at this time. * Medical History:?HTN, Hyster ectomy, Hypercholestrolemia, Anxiety/depression, [...] Occupation: disabled. Lives with spouse. * Medications:?Taking aspirin 81 mg enteric coated [...] 1 TABLET TWICE A DAY , Taking spironolactone 25 mg tablet 1 tab(s) orally once a day , Taking Xarelto 20 mg Tablet 1 tab orally once a day , Taking Crestor 5 mg [...] tab(s) orally once a day , Taking nystatin topical 388493 units/g ointment 1 tricia applied topically 3 times a day , Taking traZODone 50 mg tablet as directed orally at bedtime , Taking Abilify 10 mg tablet 1 tab(s) orally once a day at bedtime , Medication List reviewed and reconciled with the patient * Allergies:?Macrobid: argueta, reynaldo sea. Objective: * Vitals:?Nurse: shanta, Pain: 10, Temp: 97.9, RR: 20, HR: 68, BP: 110/65, Ht: 68, Wt: 215, BMI:32.69. * Examination: ???General Examination: ?General?Pleasant and Cooperative, NAD on RA,.?Heart:?Regular Rate and Rhythm, no murmur, rubs or gallops.?Lungs:?LCTAB, No wheezes, crackles or rhonchi, Good air movement,.?Abdomen:?Soft, NTND, BSNA, No organomegaly or peritoneal signs..?Skin:?without acute rashes.?Psych?Normal Mood/Affect.? Assessment: * Assessment: 1.?UTI symptoms - R39.9 (Dulce Maria yennifer)???2.?Sleeping difficulty - G47.9???3.?Lumbar back pain - M54.50??? Plan: * Treatment: 2.?Sleeping difficulty? Stop Abilify tablet, 10 mg, 1 tab(s), orally, once a day at bedtime.?? Notes: - continue Trazadone, discontinue use of Abillify due to possible hypotension but showing improvement in sleep with trazadone, limited improvement with Abilify prior ?? 3.?Lumbar back pain? Notes: Continue use of tylenol twice daily for back pain, continue heating pad daily obtain doughnut cushion and organizing follow up with interventional pain for evaluation for CSIs? Referral To: ?Reason:Please set up with pain management-[place] or [facility]-previously benefited from facet joint shots. * Follow Up:?prn * * Sign off status: Completed true * Provider:?Bandar Zamora MD Date :?03/14/2024 Generated for Orii dawit/Rylie/Sanchez on:?03/18/2024 09:22 AM EST History and Physical Notes * Examination Category Sub-Category Detail Notes Category Not es General Examination Heart: Regular Rate and Rhythm, no murmur, rubs or gallops Lungs: LCTAB, No wheezes, c rackles or rhonchi, Good air movement, Abdomen: Soft, NTND, BSNA, No organomegaly or peritoneal signs. Skin: without acute rashes General Pleasant and Coopera tive, NAD on RA, Psych Normal Mood/Affect Consultation Request Notes Referral Date Referring Provider Referred Provider Not es 03/14/2024 Bandar Zamora , Please set u p with pain management-[place] or [facility]-previously benefited from facet joint shots.
--- OUTSIDE RECORDS SUMMARY | 2024-03-18 09:23 | XMS_ITS ---
Author Organization [facility] D MAL Address [address] [facility] [address] [place] [address] Care Team Providers Care It Infrastructure Project Manager Name Role Phone Bandar Zamora Primary Care Provider [phone] REASON FOR VISIT refill Medications Medication SIG (Take, Route, Frequency, Duration) Notes Start Date End Date Status Abilify 10 mg 1 tab(s) orally once a day at bedtime for 90 days 08/22/2023 Active Encounters Encounter Location Date Provider Diagnosis [address] [address] 03/08/2024 Bandar Zamora Chronic major depressive disorder F32.9 Assessments Encounter Date Diagnosis (ICD Code) Assessment Notes Treatment Notes Treatment Clinical Notes Section Notes 03/08/2024 Chronic major depressive disorder (ICD-10 - F32.9) Plan Of Treatment Medication Medication Name Sig Start Date Stop Date Notes Abilify 10 mg 1 tab(s) orally once a day at bedtime for 90 days 08/22/2023 Progress Notes * CECILIAMariela JOSEPH FDOB:[birth year] (73 yo F)Acc No.[id number]:03/08/2024 Patient:?Mariela BROOKS :1950???Age:73 Y???Sex:Female Address:[place] [address] * Refills? Refill Abilify tablet, 10 mg, orally, 90, 1 tab(s), once a day at bedtime, 90 days, Refills=3 * true * Date:? Generated for Macie pastor/Rylie/Sanchez on:?03/18/2024 09:22 AM EST
--- OUTSIDE RECORDS SUMMARY | 2024-03-18 09:23 | XMS_ITS ---
Author Organization [facility] Address [address] [place] [address] Care Team Providers Care Manager Architecture Name Role Phone Bandar Zamora Primary Care Provider REASON FOR VISIT back/hip Encounters Encounter Location Date Provider Diagnosis [facility] [address] [address] 03/05/2024 Bandar Zamora Plan Of Treatment No Information Progress Notes * Mariela BROOKS FDOB:[birth year] (73 yo F)Acc No.[id number]:03/05/2024 Patient:?Mariela BROOKS :1950???Age:73 Y???Sex:Female Address:[place] [address] Subjective: * Chief Complaints: * ???Back/hip * Medical History:? * Surgical History:? * Hospitalization/Major Diagno stic Procedure:? * Medications:? Objective: * Vitals:? * Physical Examination:? Assessment: Plan: * Treatment: * Procedure Codes:? * true * Date:? Generated for Macie pastor/Rylie/eTransmitting on:?03/18/2024 09:23 AM EST
[2024-03-18 09:42] VITALS: BP 123/82; PULSE 67; RESP 16; O2SAT 98; BMI 31.3
--- NOTE | 2024-03-18 11:02 | A.OFFVIS_ITS ---
[facility] Disclaimer: The information contained in this section may have been updated after the patient was seen, as this information can be updated by other users. Medical History Heart murmur Surgical History History of cholecystectomy History of hysterectomy Family History Other Family history of acute heart failure Social History Smoking Status: Never smoker second hand exposure: No alcohol intake: never substance use type: denies use current occupational status: other household members: spouse housing: house current occupational exposures/hazards: No caffeine: Yes PM Subjective & Objective Subjective Subjective:: Patient is a pleasant 73-year-old female who presents today for worsening pain. Today she rates her pain a 10 out of 10. Patient denies any new trauma or injury however states that she has been having much worse increased pain all across her low back and hips. She states it does go into her groin area and upper thighs but denies any additional radiating symptoms into her lower extremities. She does describe it as a constant aching, throbbing sensation. Patient states the pain has been going on for longer than 3 months however has progressively worsened over the last month. Patient is interested in additional injection therapy due to the worsening pain and limited ability to perform activities of daily living such as cooking and cleaning. She has tried oral medications, heat and ice, topicals, at home stretching exercise for longer than 12 weeks with no additional improvement. Her Roque has been reviewed and is appropriate. Review of Systems: General: No recent weight changes, no fever, no sleep disturbances Respiratory: No cough, no shortness of air, no recurring pulmonary infections Cardiovascular/peripheral vascular: No chest pain, no palpitations, no edema, no shortness of breath Gastrointestinal: No new onset incontinence, normal bowel movements reported Genitourinary: No new onset incontinence Musculoskeletal: Low back pain, bilateral hip pain, groin pain, upper thigh pain Psychiatric: [Normal mood/affect] Neurological: [Denies weakness in extremities], [denies balance issues] Pain at rest (0-10 scale): 10 Objective Objective:: Physical Exam: General: Alert and oriented x3, no acute distress, pleasant and cooperative Lungs: Respirations even and unlabored, symmetrical chest expansion Eyes: PERRL Musculoskeletal: Flexion and extension of lumbar [spine] somewhat guarded secondary to pain, [antalgic gait noted] point tenderness along bilateral SIs with positive bilateral Claudy's, Zahra's, Gaenslen's, compression and distraction exam Neurological: Speech clear, no gross sensory deficit Has patient had previous pain injection?: No Conservative treatment options previously tried: Home exercise plan Length of treatment: Longer than 12 weeks Meds Home Medications and Allergies Home Medications ?Medication ?Instructions ?Recorded ?Confirmed ?Type buspirone 5 mg tablet 10 mg PO BID . 11/14/19 03/18/24 History rivaroxaban 20 mg tablet 20 mg PO QPM Blood thinner #90 tabs 12/18/20 03/18/24 Rx amiodarone 100 mg tablet 100 mg PO DAILY . 02/05/21 03/18/24 History aspirin 81 mg tablet,delayed 81 mg PO DAILY . 02/05/21 03/18/24 History release hydrochlorothiazide 12.5 mg tablet See Rx Instructions .Route 02/05/21 03/18/24 History .COMPLEX . losartan 50 mg tablet See Rx Instructions .Route 02/05/21 03/18/24 History .COMPLEX . rosuvastatin 5 mg tablet 5 mg PO QHS . 02/05/21 03/18/24 History acetaminophen 325 mg capsule 325 mg PO QID PRN Pain 01/24/23 03/18/24 History (Tylenol) metoprolol tartrate 25 mg tablet 25 mg PO BID . 01/24/23 03/18/24 History multivitamin-ferrous 1 tab PO DAILY 01/24/23 03/18/24 History fumarate-folic acid 18 mg-400 mcg tablet (Centrum Complete) trazodone 50 mg tablet 50 mg PO DAILY 01/24/23 03/18/24 History spironolactone 25 mg tablet See Rx Instructions .Route 02/23/23 03/18/24 Rx .COMPLEX #90 tabs methocarbamol 750 mg tablet 750 mg PO Q8HP PRN Pain 11/22/23 03/18/24 History baclofen 5 mg tablet 5 mg PO TID PRN muscle spasm #90 02/12/24 03/18/24 Rx tabs lidocaine 4 % topical patch 1 patch topical DAILY PRN pain #10 02/12/24 03/18/24 Rx ea prednisone 20 mg tablet 20 mg PO BID #10 tabs 02/12/24 03/18/24 Rx New Prescriptions to Start Prescriptions: Allergies Allergy/AdvReac Type Severity Reaction Status Date / Time No Known Allergies Allergy Verified 02/22/24 10:52 Assessment and Plan *Assessment and plan (1) Bilateral sacroiliitis: Status: Acute Category: Medical Code(s): M46.1 - Sacroiliitis, not elsewhere classified Plan Patient is experiencing worsening pain along the low back and bilateral hips. They did have limited range of motion of the lumbar spine along with point tende rness along bilateral SI joints and a positive bilateral Claudy's, Zahra's, Gaenslen's, compression and distraction exam. I did discuss with the patient that I do believe they would benefit from bilateral SI injections. Risk and benefits were discussed with the patient and they would like to proceed forward with this option. Patient has tried and failed conservative therapy including continued at home stretching exercise for longer than 12 weeks. Patient will be scheduled for bilateral SI injections under fluoroscopy. Patient has been instructed to contact the clinic with any concerns before the next appointment. Dr. Berry has reviewed this note and agrees with this plan of care. This note was dictated using voice recognition software and make contain errors or omissions. All injections are used with Lidocaine or Bupivacaine and Depo Medrol.
== END 2024-03-18 23:59 | disposition home or self-care (01) ==
LOC: SC.PAIN 09:21
PROVIDERS: PCP Internal Medicine Adolescent Medicine; Visit Provider Nurse Practitioner Family
DX: M46.1 Sacroiliitis, not elsewhere classified (principal); Z79.899 Other long term (current) drug therapy; Z73.89 Other problems related to life management difficulty
CPT/HCPCS: 99212; G0463

== ENCOUNTER 2024-04-09 13:18 | Day surgery (SDC) | payer MEDICARE, OTHER, SELFPAY ==
[2024-04-09 13:36] VITALS: BP 132/91; PULSE 78; RESP 16; TEMP 36.9; O2SAT 97; BMI 29.5
[2024-04-09] MEDS: LIDOCAINE 1% 5ML PF VIAL 5 ML (13:58)
[2024-04-09] MEDS: BUPIVACAINE 0.25% 10ML INJ 25 MG IJ (13:58)
--- NOTE | 2024-04-09 13:59 | P.PCN_ITS ---
Procedure Date: 04/09/24 Time: 13:49 Anesthesiologist:: Braulio Sandy CRNA Complications:: None Pre-procedure Diagnosis:: Bilateral sacroiliitis Post-procedure Diagnosis:: Same Indications for Procedure:: Patient is a pleasant 73-year-old female who comes our clinic today for bilateral sacroiliac joint injections of cortisone and local anesthetic. She describes low lumbar back pain off the midline bilaterally. Bilateral posterior hip pain. Difficulty sitting. Difficulty standing for any length of time due to low back pain. She rates her pain 7/10. Procedure Details:: Procedure: Bilateral sacroiliac joint injections under fluoroscopy Informed consent was obtained and the risks and benefits of the procedure were explained to the patient.~ The patient was taken to the procedure room and noninvasive monitors were placed including a noninvasive blood pressure cuff and pulse oximeter.~ The patient was placed prone on the procedure table. Both hips were cleansed using Betadine as a cleansing solution. C-arm fluoroscopy was used to view the right sacroiliac joint.~ The skin and subcutaneous tissues were anesthetized using lidocaine 1.5% and a 25-gauge needle.~ After this, a 22-gauge spinal needle was inserted under fluoroscopic guidance into the inferior aspect of the right sacroiliac joint.~ Omnipaque dye was injected and good spread was seen throughout the joint.~ After this, approximately 5 mL of bupivacaine, 0.25% and Depo-Medrol, 40 mg was incrementally injected into the right sacroiliac joint. We then moved to the left sacroiliac joint.~ The skin and subcutaneous tissues were anesthetized using lidocaine 1.5% and a 25-gauge needle.~ After this, a 22- gauge spinal needle was inserted under fluoroscopic guidance into the inferior aspect of the left sacroiliac joint.~ Omnipaque dye was injected and good spread was seen throughout the joint. After this, approximately 5 mL of bupivacaine, 0.25% and Depo-Medrol, 40 mg was incrementally injected into the left sacroiliac joint.~ The patient tolerated the procedure well with no complications. The patient was observed in the Pain Clinic and then was discharged home neurologically intact. Plan and Disposition:: Patient was discharged without incident.
[2024-04-09 14:16] VITALS: BP 107/77; PULSE 95; RESP 16; O2SAT 94
== END 2024-04-09 14:16 | disposition home or self-care (01) ==
PROVIDERS: PCP Internal Medicine Adolescent Medicine; Visit Provider Nurse Anesthetist, Certified Registered
DX: M46.1 Sacroiliitis, not elsewhere classified (principal)
CPT/HCPCS: 27096; G0260; J1010

== ENCOUNTER 2024-05-22 14:47 | Outpatient (POV) | payer MEDICARE, OTHER, SELFPAY ==
--- NOTE | 2024-05-22 15:26 | EXP.PAIN.SOA ---
[facility] Disclaimer: The information contained in this section may have been updated after the patient was seen, as this information can be updated by other users. Medical History Heart murmur Surgical History History of cholecystectomy History of hysterectomy Family History Other Family history of acute heart failure Social History Smoking Status: Never smoker second hand exposure: No alcohol intake: never substance use type: denies use current occupational status: other Travel in the last 8 weeks: None household members: spouse housing: house current occupational exposures/hazards: No caffeine: Yes PM Subjective & Objective Subjective Subjective:: Patient is a pleasant 73-year-old female who presents today for follow-up of bilateral SI injections on 04/09/2024. Patient does state that she had 90% improvement following these injections however about 2 weeks after these injections she ended up falling in her kitchen and cause significant pain there at her low back. Patient states the pain is an aching, throbbing sensation that does have numbness that goes into both her legs. Patient states that it has progressively worsened since her injury and that it is interfering with her ability perform activities of daily living such as cooking and cleaning. Patient does state that the pain is very low up above her buttocks. Patient is interested in any help we may be able to provide. Her Roque has been reviewed and is appropriate. Review of Systems: General: No recent weight changes, no fever, no sleep disturbances Respiratory: No cough, no shortness of air, no recurring pulmonary infections Cardiovascular/peripheral vascular: No chest pain, no palpitations, no edema, no shortness of breath Gastrointestinal: No new onset incontinence, normal bowel movements reported Genitourinary: No new onset incontinence Musculoskeletal: Low back pain, bilateral leg numbness tingling Psychiatric: [Normal mood/affect] Neurological: [Denies weakness in extremities], [denies balance issues] Pain at rest (0-10 scale): 8 Objective Objective:: Physical Exam: General: Alert and oriented x3, no acute distress, pleasant and cooperative Lungs: Respirations even and unlabored, symmetrical chest expansion Eyes: PERRL Musculoskeletal: Flexion and extension of lumbar [spine] somewhat guarded secondary to pain, [antalgic gait noted] point tenderness along the lower lumbar spine approximately L5-S1 positive leg raise Neurological: Speech clear, no gross sensory deficit FINDINGS: There is normal alignment. The spinal cord ends at the L1-L2 level. T12-L1: Minimal endplate irregularity L1-L2: Minimal disc desiccation with small anterior osteophytes. L2-L3: Mild degenerative disc disease. Small anterior osteophytes. Minimal bulging disc. Mild facet and ligamentum hypertrophic change. Mild bilateral foraminal narrowing unchanged. L3-L4: Mild concentric bulging disc with facet and ligamentum hypertrophic change with mild bilateral lateral recess and foraminal narrowing left greater than right slightly increased compared to the previous exam. Sclerotic focus involves the L3 vertebral body anteriorly not significantly changed at approximately 1.3 cm. L4-5: Degenerative disc disease with bulging disc with severe facet and ligamentum hypertrophic change with severe canal stenosis with canal measuring approximately 6 mm. There is severe bilateral lateral recess and foraminal narrowing. These findings have progressed compared to the previous exam. The canal stenosis is more severe. The canal measures approximately 5-6 mm previously measuring 7-8 mm. Type 1 endplate changes are present anteriorly and have developed since the previous study. L5-S1: 5 mm anterolisthesis of L5 with bulging disc at this region along with severe facet and ligamentum hypertrophic change. There is canal stenosis of 9 mm in there is severe bilateral foraminal narrowing. These findings are not significantly changed from the previous exam. IMPRESSION: Has patient had previous pain injection?: Yes Percent improvement in pain since last injection: 80% Conservative treatment options previously tried: Home exercise plan Length of treatment: Longer than 12 weeks Meds Home Medications and Allergies Home Medications ?Medication ?Instructions ?Recorded ?Confirmed ?Type buspirone 5 mg tablet 10 mg PO BID . 11/14/19 04/09/24 History rivaroxaban 20 mg tablet 20 mg PO QPM Blood thinner #90 tabs 12/18/20 04/09/24 Rx amiodarone 100 mg tablet 100 mg PO DAILY . 02/05/21 04/09/24 History aspirin 81 mg tablet,delayed 81 mg PO DAILY . 02/05/21 04/09/24 History release hydrochlorothiazide 12.5 mg tablet See Rx Instructions .Route 02/05/21 04/09/24 History .COMPLEX . losartan 50 mg tablet See Rx Instructions .Route 02/05/21 04/09/24 History .COMPLEX . rosuvastatin 5 mg tablet 5 mg PO QHS . 02/05/21 04/09/24 History acetaminophen 325 mg capsule 325 mg PO QID PRN Pain 01/24/23 04/09/24 History (Tylenol) metoprolol tartrate 25 mg tablet 25 mg PO BID . 01/24/23 04/09/24 History multivitamin-ferrous 1 tab PO DAILY 01/24/23 04/09/24 History fumarate-folic acid 18 mg-400 mcg tablet (Centrum Complete) trazodone 50 mg tablet 50 mg PO DAILY 01/24/23 04/09/24 History spironolactone 25 mg tablet See Rx Instructions .Route 02/23/23 04/09/24 Rx .COMPLEX #90 tabs methocarbamol 750 mg tablet 750 mg PO Q8HP PRN Pain 11/22/23 04/09/24 History baclofen 5 mg tablet 5 mg PO TID PRN muscle spasm #90 02/12/24 04/09/24 Rx tabs lidocaine 4 % topical patch 1 patch topical DAILY PRN pain #10 02/12/24 04/09/24 Rx ea prednisone 20 mg tablet 20 mg PO BID #10 tabs 02/12/24 04/09/24 Rx New Prescriptions to Start Prescriptions: Allergies Allergy/AdvReac Type Severity Reaction Status Date / Time No Known Allergies Allergy Verified 02/22/24 10:52 Assessment and Plan *Assessment and plan (1) Degenerative joint disease (DJD) of lumbar spine: Status: Chronic Qualifiers: Spinal osteoarthritis complication: with radiculopathy Qualified Code(s): M47.26 - Other spondylosis with radiculopathy, lumbar region Category: Medical Code(s): M47.816 - Spondylosis without myelopathy or radiculopathy, lumbar region (2) Lumbar radiculopathy: Status: Acute Category: Medical Code(s): M54.16 - Radiculopathy, lumbar region Plan Patient is experiencing worsening pain in her low back with numbness and tingling into her lower extremities. Patient did have limited range of motion of her lumbar spine with a positive leg raise with point tenderness along her lower lumbar spine approximately L5-S1. I did discuss with patient that I do believe they would benefit from a lumbar epidural steroid injection. Risk and benefits were discussed with patient and the patient would like to proceed forward with this plan of care. Patient is on blood thinners that is written by Dr. Zamora's office. We will reach out to him to confirm if she can stop this medication prior to this injection.. Patient has tried and failed conservative therapy including continued at home stretching exercise for longer than 12 weeks between injections. Patient has had a lumbar epidural in the past through our office back in January 2021 that did provide significant relief of more than 50%.We will schedule the patient for an LESI L5-S1 under fluoroscopy. Patient has been instructed to contact the clinic with any concerns before the next appointment. Dr. Berry has reviewed this note and agrees with this plan of care. This note was dictated using voice recognition software and make contain errors or omissions. All injections are used with Lidocaine, Bupivacaine and Depo Medrol. Occasionally urine drug screen is needed to verify patient's compliance with our office pain contract. This is ordered based off specific treatments related to chronic pain with the potential to abuse certain medications.
[2024-05-22 15:58] VITALS: BP 122/65; PULSE 63; RESP 14; O2SAT 94; BMI 36.9
== END 2024-05-22 23:59 | disposition home or self-care (01) ==
LOC: SC.PAIN 14:48
PROVIDERS: PCP Internal Medicine Adolescent Medicine; Visit Provider Nurse Practitioner Family
DX: M47.26 Other spondylosis with radiculopathy, lumbar region (principal); Z73.89 Other problems related to life management difficulty
CPT/HCPCS: 99212; G0463

== ENCOUNTER 2024-06-27 12:54 | Outpatient (CLI) | payer MEDICARE, OTHER, SELFPAY ==
--- NOTE | 2024-06-27 12:57 | MM_ITS ---
PROCEDURE INFORMATION: Exam: MG Bilateral Screening 3D Mammography Exam date and time: 06/27/2024 1:25 PM Age: 73 years old Clinical indication: Screening examination TECHNIQUE: Imaging protocol: Bilateral Screening tomosynthesis and 2D mammography including computer-aided detection (CAD) when performed. COMPARISON: 1. MG MM DIG SCREENING MAMM BI W/CAD 05/17/2023 1:00 PM 2. MG MM DIG SCREENING MAMM BI W/CAD 04/27/2022 3:56 PM FINDINGS: MAMMOGRAPHY: Breast composition: The breasts are almost entirely fatty. Mass: None. Architectural distortion: None. Calcifications: No suspicious calcifications. Asymmetric density: None. Skin thickening: None. Axillary adenopathy: None. IMPRESSION: No mammographic evidence of malignancy. Annual screening is recommended unless otherwise clinically indicated. ASSESSMENT: BI-RADS Category 1: Negative.
== END 2024-06-27 23:59 | disposition home or self-care (01) ==
LOC: RAD 12:54
PROVIDERS: PCP Internal Medicine Adolescent Medicine; Visit Provider Nurse Practitioner Family
DX: Z12.31 Encounter for screening mammogram for malignant neoplasm of breast (principal)
CPT/HCPCS: 77063; 77067

== ENCOUNTER 2024-07-02 11:22 | Day surgery (SDC) | payer MEDICARE, OTHER, SELFPAY ==
[2024-07-02 11:39] VITALS: BP 113/60; PULSE 62; RESP 16; TEMP 36.8; O2SAT 97; BMI 29.5
[2024-07-02 11:50] VITALS: BP 124/59; PULSE 57; RESP 16; O2SAT 98
--- NOTE | 2024-07-02 11:52 | EXP.PAIN.PRO ---
Procedure Date: 07/02/24 Time: 11:40 Anesthesiologist:: Braulio Sandy CRNA Complications:: None Pre-procedure Diagnosis:: Degenerative disc lumbar spine multilevels. Lumbar radiculopathy. Lumbar spondylosis thesis. Disc bulge multilevel lumbar spine. Post-procedure Diagnosis:: Same. Indications for Procedure:: Patient is a very pleasant 73-year-old female who comes our clinic today for lumbar epidural steroid injection. Patient describes low lumbar back pain as well as bilateral hip and leg radicular symptoms to her feet. She describes the pain in the back as constant, dull, aching. She rates her pain 7/10. Procedure Details:: Procedure: Lumbar epidural steroid injection under fluoroscopy Informed consent was obtained and the risks and benefits of the procedure were explained to the patient. The patient was taken to the procedure room and noninvasive monitors placed, including noninvasive blood pressure cuff and pulse oximeter. The back was viewed using C-arm Fluoroscopy and prepped using Chloraprep as a cleansing solution and the L4-L5 interspace was palpated. Skin and subcutaneous tissues were anesthetized using lidocaine 1.5% and a 25-gauge needle. After this, an 18-gauge Touhy epidural needle was placed into the L4-L5 interspace and advanced using fluoroscopic guidance and loss of resistance to air until the epidural space was encountered. After confirmation of needle placement in the epidural space, with dye, a solution containing normal saline, 3 mL and Depo-Medrol 80 mg were incrementally injected into the lumbar epidural space. The patient tolerated the procedure well with no complications. The patient was observed in the Pain Clinic and then discharged home neurologically intact. Plan and Disposition:: Patient was discharged without incident.
[2024-07-02] MEDS: methylPREDNISolone ACETATE 80MG/ML VIAL 80 MG (13:44)
[2024-07-02 13:45] VITALS: BP 115/70; PULSE 70; RESP 18; O2SAT 97
[2024-07-02 13:46] VITALS: BP 115/70; PULSE 70; RESP 18; O2SAT 97
== END 2024-07-02 11:50 | disposition home or self-care (01) ==
PROVIDERS: PCP Internal Medicine Adolescent Medicine; Visit Provider Nurse Anesthetist, Certified Registered
DX: M51.16 Intervertebral disc disorders with radiculopathy, lumbar region (principal); M47.26 Other spondylosis with radiculopathy, lumbar region
CPT/HCPCS: 62323; J1010

== ENCOUNTER 2024-07-17 09:24 | Outpatient (POV) | payer MEDICARE, OTHER, SELFPAY ==
[2024-07-17 09:37] VITALS: BP 114/70; PULSE 54; RESP 16; O2SAT 96; BMI 29.5
--- NOTE | 2024-07-17 09:57 | EXP.PAIN.SOA ---
[facility] Disclaimer: The information contained in this section may have been updated after the patient was seen, as this information can be updated by other users. Medical History Heart murmur Surgical History History of cholecystectomy History of hysterectomy Family History Other Family history of acute heart failure Social History Smoking Status: Never smoker second hand exposure: No alcohol intake: never substance use type: denies use current occupational status: other Travel in the last 8 weeks: None household members: spouse housing: house current occupational exposures/hazards: No caffeine: Yes PM Subjective & Objective Subjective Subjective:: Patient is a pleasant 73-year-old female who presents today for follow-up of her lumbar epidural steroid injection L4-L5 on 07/02/2024. Today she rates her pain a 2 out of 10. Patient denies any new falls or injuries. She does state that she feels like these injections gave at least 75% improvement and that it is still working well. Patient does also state today that her hips are still doing wonderful from her bilateral SI injections. Patient does state that she will occasionally have some symptoms into her legs but it is definitely not as severe and not as constant. Her Roque has been reviewed and is appropriate. Review of Systems: General: No recent weight changes, no fever, no sleep disturbances Respiratory: No cough, no shortness of air, no recurring pulmonary infections Cardiovascular/peripheral vascular: No chest pain, no palpitations, no edema, no shortness of breath Gastrointestinal: No new onset incontinence, normal bowel movements reported Genitourinary: No new onset incontinence Musculoskeletal: Low back pain Psychiatric: [Normal mood/affect] Neurological: [Denies weakness in extremities], [denies balance issues] Pain at rest (0-10 scale): 2 Objective Objective:: Physical Exam: General: Alert and oriented x3, no acute distress, pleasant and cooperative Lungs: Respirations even and unlabored, symmetrical chest expansion Eyes: PERRL Musculoskeletal: Flexion and extension of lumbar [spine] somewhat guarded secondary to pain, [antalgic gait noted] Neurological: Speech clear, no gross sensory deficit Has patient had previous pain injection?: Yes Percent improvement in pain since last injection: 75% Conservative treatment options previously tried: Home exercise plan Length of treatment: Longer than 12 weeks Meds Home Medications and Allergies Home Medications ?Medication ?Instructions ?Recorded ?Confirmed ?Type buspirone 5 mg tablet 10 mg PO BID . 11/14/19 07/17/24 History rivaroxaban 20 mg tablet 20 mg PO QPM Blood thinner #90 tabs 12/18/20 07/17/24 Rx amiodarone 100 mg tablet 100 mg PO DAILY . 02/05/21 07/17/24 History aspirin 81 mg tablet,delayed 81 mg PO DAILY . 02/05/21 07/17/24 History release hydrochlorothiazide 12.5 mg tablet See Rx Instructions .Route 02/05/21 07/17/24 History .COMPLEX . losartan 50 mg tablet See Rx Instructions .Route 02/05/21 07/17/24 History .COMPLEX . rosuvastatin 5 mg tablet 5 mg PO QHS . 02/05/21 07/17/24 History acetaminophen 325 mg capsule 325 mg PO QID PRN Pain 01/24/23 07/17/24 History (Tylenol) metoprolol tartrate 25 mg tablet 25 mg PO BID . 01/24/23 07/17/24 History multivitamin-ferrous 1 tab PO DAILY 01/24/23 07/17/24 History fumarate-folic acid 18 mg-400 mcg tablet (Centrum Complete) trazodone 50 mg tablet 50 mg PO DAILY 01/24/23 07/17/24 History spironolactone 25 mg tablet See Rx Instructions .Route 02/23/23 07/17/24 Rx .COMPLEX #90 tabs methocarbamol 750 mg tablet 750 mg PO Q8HP PRN Pain 11/22/23 07/17/24 History baclofen 5 mg tablet 5 mg PO TID PRN muscle spasm #90 02/12/24 07/17/24 Rx tabs lidocaine 4 % topical patch 1 patch topical DAILY PRN pain #10 02/12/24 07/17/24 Rx ea prednisone 20 mg tablet 20 mg PO BID #10 tabs 02/12/24 07/17/24 Rx New Prescriptions to Start Prescriptions: Allergies Allergy/AdvReac Type Severity Reaction Status Date / Time No Known Allergies Allergy Verified 02/22/24 10:52 Assessment and Plan *Assessment and plan (1) Degenerative joint disease (DJD) of lumbar spine: Status: Chronic Qualifiers: Spinal osteoarthritis complication: with radiculopathy Qualified Code(s): M47.26 - Other spondylosis with radiculopathy, lumbar region Category: Medical Code(s): M47.816 - Spondylosis without myelopathy or radiculopathy, lumbar region Plan Patient has had significant improvement following her lumbar epidural and previous SI injections. She does not require any additional interventions at this time. Patient will return to clinic in 6 weeks. Patient has been instructed to contact the clinic with any concerns before the next appointment. Dr. Berry has reviewed this note and agrees with this plan of care. This note was dictated using voice recognition software and make contain errors or omissions. All injections are used with Lidocaine, Bupivacaine and Depo Medrol. Occasionally urine drug screen is needed to verify patient's compliance with our office pain contract. This is ordered based off specific treatments related to chronic pain with the potential to abuse certain medications.
== END 2024-07-17 23:59 | disposition home or self-care (01) ==
LOC: SC.PAIN 09:27
PROVIDERS: PCP Internal Medicine Adolescent Medicine; Visit Provider Nurse Practitioner Family
DX: M47.26 Other spondylosis with radiculopathy, lumbar region (principal)
CPT/HCPCS: 99212; G0463

== ENCOUNTER 2024-08-28 13:42 | Outpatient (POV) | payer MEDICARE, OTHER, SELFPAY ==
--- OUTSIDE RECORDS SUMMARY | 2024-08-28 13:45 | XMS_ITS | Continuity of Care Document ---
Author Organization [facility] Phone Care Team Providers Care Head Of Training And Development Name Role Phone NELIDA MOURA Admitting MADONNA MADSEN Primary Care NELIDA MOURA Primary Attending NELIDA MOURA Unavailable RESULTS Patient: CECILIA Melendez Date of : [birth year] LABORATORY RESULTS ORDER 200: BASIC METABOLIC P HEATH (LOINC: 81200-3) ORDER DATE: May 15, 2024 3:23:00 PM UTC Specimen Source: Serum/Plasm a Specimen Type: Acellular blo od (serum or plasma) specimen PERFORMING LAB: [facility] [address] [facility] [id number] Result Comment: Final Result Date: May 15, 2024 4:03:00 PM UT (TECH: LT) LOINC TEST FLAG RESULT REFERENCE RANGE UPDA CLAUDETTE BY 2951-2 Sodium [Moles/volume ] in Serum or Plasma N 142 mmol/L 136 mmol/L - 145 mmol/L May 15, 2024 4:03:00 PM UTC (TECH: LT) 2823-3 Potassium [Moles/volume] in Serum or Plasma N 4.1 mmol/L 3.5 mmol/L - 5.1 mmol/L May 15, 2024 4:03:00 PM UTC (TECH: LT) 2075-0 Chloride [Moles/volume] in Serum or Plasma N 106 mmol/L 98 mmol/L - 107 mmol/L May 15, 2024 4:03:00 PM UTC (TECH: LT) 2027-9 Carbon dioxide, tota l [Moles/volume] in Serum or Plasma N 32 mmol/L 21 mmol/L - 32 mmol/L April 4:03:00 PM UTC (TECH: LT) 39661-1 Anion gap 3 in Serum or Plasma N 4.0 May 15, 2024 4:03:00 PM [facility] (TECH: LT) 2345-7 Glucose [Mass/volume ] in Serum or Plasma N 107 mg/dL 70 mg/dL - 110 mg/dL May 15, 2024 4:03:00 PM [facility] (TECH: LT) 3094-0 Urea nitrogen [Mass/volume] in Serum or Plasma N 15 mg/dL 7 mg/dL - 18 mg/dL May 15 4:03:00 PM [facility] (TECH: LT) 2160-0 Creatinine [Mass/volume] in Serum or Plasma H 1.3 mg/dL 0.6 mg/dL - 1.0 mg/dL April 4:03:00 PM [facility] (TECH: LT) 3097-3 Urea nitrogen/Creatinine [Mass Ratio] in Serum or Plasma N 11.5 9 - May 15, 2024 4:03:00 PM [facility] (TECH: LT) 26444-2 Glomerular filtratio n rate/1.73 sq M.predicted by Creatinine-based formula (MDRD) L 43 mL/min >60 May 15, 2024 4:03:00 PM [facility] (TECH: LT) 58025-3 Calcium [Mass/volume ] in Serum or Plasma N 9.3 mg/dL 8.5 mg/dL - 10.1 mg/dL May 15, 2024 4:03:00 PM [facility] (TECH: LT) LABORATORY NARRATIVE RESULTS Information is not available RADIOLOGY RESULTS Information is not available PATHOLOGY NARRATIVE RESULTS Information is not available MICROBIOLOGY RESULTS No Micro Labs/Results Exist for Patient BLOOD ADMIN RESULTS Information is not available MEDICATIONS HOME MEDICATIONS Status RXNORM NDC Medication Dose Route Frequency Dates Comments Reported By Updated By Drug Treatment Unknown DISCHARGE MEDICATIONS Status RXNORM NDC Medication Dose Route Frequency Dates Comments Physician Updated By No Discharge Medication Info rmation Available INPATIENT MEDICATIONS Status RXNORM NDC Medication Dose Route Frequency Rat e Quantity Dates Comments Physician Updated By No Inpatient Medication Info rmation Available SOCIAL HISTORY SOCIAL HISTORY SNOMED-CT Social History Element Description Effective Dates Offered Cessation Comment UpdatedBy [id number] Smoking Status Unknown If Ever Smoked SOCIAL HISTORY - Gender Sex: Female SOCIAL HISTORY - Status : status i nformation is not available Intention in Next Year: intention information is not available SOCIAL HISTORY - Sexual Behavior Sexual Orientation Gender Identity SNOMED-CT Description SNO MED -CT Description Activity Level No of Partners Partner Type UpdatedBy Information is not available HEALTH CONCERNS Problems Concern Status Health Concern problem infor mation not available. Smoking Status Status Years Used Consumed packs p er day Health Concern smoking histo ry information not available. Family History Concern Status Health Concern family histor y information not available. ENCOUNTERS ENCOUNTER INFORMATION Reason for Visit R79.89 Admission May 15, 2024 3:13:[address] [id number] Discharge May 15, 2024 3:13:00 PM [facility] DISCHARGED TO HOME OR SELF CARE ENCOUNTER DIAGNOSES Notes information is not thierry ilable. Code System Diagnosis Onset Date Diagnosis information is not available. ABSTRACT DIAGNOSES Code System Diagnosis Updated By R79.89 ICD10 OTHER SPECIFIED ABNORMAL FINDINGS OF BLOOD CHEMISTRY [id number] on May 17, 2024 7:16:34 AM [facility] R79.89 ICD10 OTHER SPECIFIED ABNORMAL FINDINGS OF BLOOD CHEMISTRY [id number] on May 17, 2024 7:16:37 AM [facility] CARE TEAM Care Head Of Training And Development Role NELIDA MOURA Admitting MADONNA MADSEN Primary Care NELIDA MOURA Primary Attending NELIDA MOURA Referring CARE TEAM CARE ecd Role on Team Status Start Date End Date Update d By TENA PEACOCK MD PCP normal April 5:00:00 AM [facility] May 15, 2024 3:13:00 PM [facility] [id number] on May 15, 2024 3:15:05 PM [facility] ZENY Rodgers APRN Referring normal May 15, 2024 5:00:00 AM [facility] May 15, 2024 3:13:00 PM [facility] [id number] on May 15, 2024 3:15:05 PM [facility] ZENY Rodgers APRN Attending normal May 15, 2024 5:00:00 AM [facility] May 15, 2024 3:13:00 PM [facility] [id number] on May 15, 2024 3:15:05 PM [facility] ZENY Rodgers APRN Admitting normal May 15, 2024 5:00:00 AM [facility] May 15, 2024 3:13:00 PM [facility] [id number] on May 15, 2024 3:15:05 PM [facility]
[2024-08-28 14:15] VITALS: BP 96/60; PULSE 86; RESP 14; O2SAT 99; BMI 28.0
--- NOTE | 2024-08-28 14:35 | EXP.PAIN.SOA ---
[facility] Disclaimer: The information contained in this section may have been updated after the patient was seen, as this information can be updated by other users. Medical History Heart murmur Surgical History History of cholecystectomy History of hysterectomy Family History Other Family history of acute heart failure Social History Smoking Status: Never smoker second hand exposure: No alcohol intake: never substance use type: denies use current occupational status: other Travel in the last 8 weeks?: None household members: spouse housing: house current occupational exposures/hazards: No caffeine: Yes PM Subjective & Objective Subjective Subjective:: Patient is a pleasant 74-year-old female who presents today for 6-week follow-up. Today she rates her pain a 5 out of 10. Patient denies any new falls or injuries. Patient does state that she is having more increased left leg pain with numbness and tingling. Patient does state she has still some in the right leg however the left leg seems to be more bothersome. Patient did previously have a lumbar epidural steroid injection in June that did provide 75% improvement and had been working well. Patient does state today that she feels like maybe that this has worn off more and is starting to go back towards her baseline. Patient does state the pain is worse with increased activity or walking. Patient does state the pain interferes with her ability perform activities of daily living such as cooking and cleaning. Patient does present today with lower blood pressure readings. Patient states that she typically does not have issues with her blood pressure. Her Roque has been reviewed and is appropriate. Review of Systems: General: No recent weight changes, no fever, no sleep disturbances Respiratory: No cough, no shortness of air, no recurring pulmonary infections Cardiovascular/peripheral vascular: No chest pain, no palpitations, no edema, no shortness of breath Gastrointestinal: No new onset incontinence, normal bowel movements reported Genitourinary: No new onset incontinence Musculoskeletal: Low back pain, left leg pain Psychiatric: [Normal mood/affect] Neurological: [Denies weakness in extremities], [denies balance issues] Pain at rest (0-10 scale): 5 Objective Objective:: Physical Exam: General: Alert and oriented x3, no acute distress, pleasant and cooperative Lungs: Respirations even and unlabored, symmetrical chest expansion Eyes: PERRL Musculoskeletal: Flexion and extension of lumbar [spine] somewhat guarded secondary to pain, [antalgic gait noted] positive leg raise Neurological: Speech clear, no gross sensory deficit Has patient had previous pain injection?: No Conservative treatment options previously tried: Home exercise plan Length of treatment: Longer than 12 weeks Meds Home Medications and Allergies Home Medications ?Medication ?Instructions ?Recorded ?Confirmed ?Type buspirone 5 mg tablet 10 mg PO BID . 11/14/19 08/28/24 History rivaroxaban 20 mg tablet 20 mg PO QPM Blood thinner #90 tabs 12/18/20 08/28/24 Rx amiodarone 100 mg tablet 100 mg PO DAILY . 02/05/21 08/28/24 History aspirin 81 mg tablet,delayed 81 mg PO DAILY . 02/05/21 08/28/24 History release hydrochlorothiazide 12.5 mg tablet See Rx Instructions .Route 02/05/21 08/28/24 History .COMPLEX . losartan 50 mg tablet See Rx Instructions .Route 02/05/21 08/28/24 History .COMPLEX . rosuvastatin 5 mg tablet 5 mg PO QHS . 02/05/21 08/28/24 History acetaminophen 325 mg capsule 325 mg PO QID PRN Pain 01/24/23 08/28/24 History (Tylenol) metoprolol tartrate 25 mg tablet 25 mg PO BID . 01/24/23 08/28/24 History multivitamin-ferrous 1 tab PO DAILY 01/24/23 08/28/24 History fumarate-folic acid 18 mg-400 mcg tablet (Centrum Complete) trazodone 50 mg tablet 50 mg PO DAILY 01/24/23 08/28/24 History spironolactone 25 mg tablet See Rx Instructions .Route 02/23/23 08/28/24 Rx .COMPLEX #90 tabs methocarbamol 750 mg tablet 750 mg PO Q8HP PRN Pain 11/22/23 08/28/24 History baclofen 5 mg tablet 5 mg PO TID PRN muscle spasm #90 02/12/24 08/28/24 Rx tabs lidocaine 4 % topical patch 1 patch topical DAILY PRN pain #10 10/21/24 05/07/25 Rx ea prednisone 20 mg tablet 20 mg PO BID #10 tabs 02/12/24 08/28/24 Rx New Prescriptions to Start Prescriptions: Allergies Allergy/AdvReac Type Severity Reaction Status Date / Time No Known Allergies Allergy Verified 02/22/24 10:52 Assessment and Plan *Assessment and plan (1) Lumbar radiculopathy: Status: Acute Category: Medical Code(s): M54.16 - Radiculopathy, lumbar region (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 Patient did have limited range of motion of her lumbar spine with a positive leg raise. Patient's symptoms are more prominent on the left side however due to the complaints still on the right side as well, I do believe they would benefit from a lumbar epidural steroid injection. Risk and benefits were discussed with patient and the patient would like to proceed forward with this plan of care. Patient is on blood thinners written by Dr. Zamora's office. We will reach out to this office to confirm that she can stop this medication prior to this injection.. Patient has tried and failed conservative therapy including continued at home stretching exercise for longer than 12 weeks between injections. Patient did previously have a lumbar epidural back in June that provided 75% relief and lasted longer than 3 months. Patient has had chronic back pain for longer than 6 months. We will schedule the patient for an LESI L4-L5 under fluoroscopy. Patient has been instructed to contact the clinic with any concerns before the next appointment. Dr. Berry has reviewed this note and agrees with this plan of care. This note was dictated using voice recognition software and make contain errors or omissions. All injections are used with Lidocaine, Bupivacaine and Depo Medrol. Occasionally urine drug screen is needed to verify patient's compliance with our office pain contract. This is ordered based off specific treatments related to chronic pain with the potential to abuse certain medications.
== END 2024-08-28 23:59 | disposition home or self-care (01) ==
LOC: SC.PAIN 13:44
PROVIDERS: PCP Internal Medicine Adolescent Medicine; Visit Provider Nurse Practitioner Family
DX: M47.26 Other spondylosis with radiculopathy, lumbar region (principal); Z73.89 Other problems related to life management difficulty; Z79.01 Long term (current) use of anticoagulants
CPT/HCPCS: 99212; G0463

== ENCOUNTER 2024-09-13 10:13 | Outpatient (CLI) | payer MEDICARE, OTHER, SELFPAY ==
[2024-09-13 10:41] LABS: Basophils % 0.4 % (0.1-2.0); Eosinophils # 0.3 Kmm3 (0.0-0.4); Eosinophils % 4.2 % (0.1-12.0); Hematocrit 40.6 % (37.0-47.0); Hemoglobin 13.1 g/dL (12.2-16.2); Immature Granulocytes # 0.01 10^3uL; Immature Granulocytes % 0.1 %; Lymphocytes # 1.5 K/mm3 (0.7-4.5); Lymphocytes % 20.3 % (10-50); Mean Corpuscular HGB Conc 32.3 g/dL (31.8-35.4); Mean Platelet Volume 10.5 fl (7.4-10.4); Monocytes # 0.4 K/mm3 (0.1-1.0); Monocytes % 5.7 % (1.7-9.3); Neutrophils % 69.3 % (37.0-80.0); Nucleated Red Blood Cells # 0 10^3/uL; Nucleated Red Blood Cells % 0 %; Platelet Count 231 K/mm3 (142-424); Red Blood Count 4.51 M/mm3 (4.20-5.40); Red Cell Distribution Width 13.3 % (11.5-17.5); Red Cell Distribution Width-SD 44.1 fL; White Blood Count 7.2 K/mm3 (4.8-10.8)
[2024-09-13 10:58] LABS: Albumin Level 3.6 g/dl (3.5-5.0); Chloride 111 mmol/L (98-107); Potassium 4.3 mmoL/L (3.5-5.1); Sodium 135 mmol/L (136-145)
[2024-09-13 11:00] LABS: Bilirubin,Unconjugated 0.4 mg/dL (0.0-1.1); Blood Urea Nitrogen 14 mg/dl (7-17); Estimated Glomerular Filt Rate 54 ml/min (>60); GFR (African American) 66 ML/MIN (>60)
[2024-09-13 11:01] LABS: Alanine Aminotransferase 19 U/L (12-78); Alkaline Phosphatase 122 U/L (38-126); Anion Gap 11.3 mEq/L (5-15); Aspartate Amino Transferase 82 U/L (14-36); Bilirubin,Direct 0.7 mg/dl (0.0-0.4); Bilirubin,Indirect 0.3 mg/dL (0.0-0.9); Calcium 9.1 mg/dl (8.4-10.2); Carbon Dioxide 17 mmol/L (22.0-30.0); Chol/HDL Ratio 3.1 (1-3.5); Cholesterol 135 mg/dl (140-200); Glucose 89 mg/dl (74-100); HDL Cholesterol 44 mg/dl (40-60); Total Protein,Serum 6.8 g/dl (6.3-8.2); Triglycerides 140 mg/dl (30-150); VLDL Cholesterol 28 mg/dL (0-40)
[2024-09-13 11:12] LABS: Direct LDL Cholesterol 30.04 mg/dL (100-129)
[2024-09-13 11:20] LABS: Free T4 (Free Thyroxine) 1.67 ng/dl (0.78-2.19)
== END 2024-09-13 23:59 | disposition home or self-care (01) ==
LOC: LAB 10:14
PROVIDERS: PCP Internal Medicine Adolescent Medicine; Visit Provider Physician Assistant
DX: E78.5 Hyperlipidemia, unspecified (principal); I10 Essential (primary) hypertension; Z79.899 Other long term (current) drug therapy
CPT/HCPCS: 36415; 80048; 80061; 80076; 83735; 84439; 85025

== ENCOUNTER 2024-10-01 10:12 | Day surgery (SDC) | payer MEDICARE, OTHER, SELFPAY ==
[2024-10-01 10:13] VITALS: BP 131/70; PULSE 74; RESP 16; O2SAT 100; BMI 28.0
[2024-10-01 10:31] VITALS: BP 104/71; PULSE 85; RESP 18; O2SAT 97
[2024-10-01] MEDS: DEXAMETHASONE 10MG/ML 1ML VIAL 10 MG (10:31)
[2024-10-01 10:33] VITALS: BP 104/71; PULSE 85; RESP 18; O2SAT 97
--- NOTE | 2024-10-01 10:37 | EXP.PAIN.PRO ---
Procedure Date: 10/01/24 Time: 10:20 Anesthesiologist:: Braulio Sandy CRNA Complications:: None Pre-procedure Diagnosis:: Degenerative disc lumbar spine multilevels. Lumbar radiculopathy. Lumbar spondylosis. Multilevel lumbar facet arthropathy. Post-procedure Diagnosis:: Same. Indications for Procedure:: Patient is a very pleasant 74-year-old female who comes our clinic today for repeat lumbar epidural steroid injection at the L4-5 level. Patient describes low lumbar back pain as well as bilateral hip and leg radicular symptoms. She rates her pain 7/10. Patient reports responding very well to lumbar epidural steroid injections in the past at the same level. Procedure Details:: Procedure: Lumbar epidural steroid injection under fluoroscopy Informed consent was obtained and the risks and benefits of the procedure were explained to the patient. The patient was taken to the procedure room and noninvasive monitors placed, including noninvasive blood pressure cuff and pulse oximeter. The back was viewed using C-arm Fluoroscopy and prepped using Chloraprep as a cleansing solution and the L4-L5 interspace was palpated. Skin and subcutaneous tissues were anesthetized using lidocaine 1.5% and a 25-gauge needle. After this, an 18-gauge Touhy epidural needle was placed into the L4-L5 interspace and advanced using fluoroscopic guidance and loss of resistance to air until the epidural space was encountered. After confirmation of needle placement in the epidural space, with dye, a solution containing normal saline, 3 mL and Depo-Medrol 80 mg were incrementally injected into the lumbar epidural space. The patient tolerated the procedure well with no complications. The patient was observed in the Pain Clinic and then discharged home neurologically intact. Plan and Disposition:: Patient was discharged without incident.
[2024-10-01 10:40] VITALS: BP 127/71; PULSE 65; RESP 16; O2SAT 96
== END 2024-10-01 10:40 | disposition home or self-care (01) ==
PROVIDERS: PCP Internal Medicine Adolescent Medicine; Visit Provider Nurse Anesthetist, Certified Registered
DX: M51.16 Intervertebral disc disorders with radiculopathy, lumbar region (principal); M47.26 Other spondylosis with radiculopathy, lumbar region; R01.1 Cardiac murmur, unspecified; E78.5 Hyperlipidemia, unspecified; I10 Essential (primary) hypertension
CPT/HCPCS: 62323; J1100